=== PATIENT | male | born 1970 | race Caucasian/White ===

== ENCOUNTER 2025-02-07 08:27 | Inpatient (IN) | payer BC, SELFPAY ==
[2025-02-07] VITALS (52 sets, daily range): BP systolic 124–207; BP diastolic 76–142; BMI 26.5
--- NOTE | 2025-02-07 06:13 | ED.GENMED ---
History of Present Illness
General
Chief Complaint: Blood Pressure Problem
Time Seen by Provider: 02/07/25 06:13
History of Present Illness
History of Present Illness:
TIME OF INITIAL ENCOUNTER: 6:15 AM
HPI: Patient comes in due to concerns of elevated high blood pressure to his highest 230/135 last night. He stopped his blood pressure medication 1 year ago and was not sure what he was on at that time. 1 week ago, he saw his primary care doctor
at that time states that his blood pressure was around 220 systolic. He was placed on Toprol 50 mg daily. He did not take his Toprol yet today. 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
EXAM:
GENERAL: Well appearing in no distress, athletic build, hypertensive
HEENT: Moist oral mucosa
CARDIOVASCULAR: No murmurs, borderline tachycardic heart rate, regular rhythm, No chest wall tenderness
PULMONARY: No respiratory distress, breath sounds are clear and equal
ABDOMEN: Soft with no peritoneal signs, no tenderness
NEUROLOGIC: Excellent strength all extremities, no coordination deficits, surgical scar noted to the upper abdomen
PSYCHIATRIC: Appropriate mental status, normal insight and judgement
EXTREMITIES: Nontender, no edema, moves all extremities equally
SKIN: No rash, no lesions
NUMBER AND COMPLEXITY OF PROBLEMS ADDRESSED AT THE ENCOUNTER
� Chronic conditions affecting care: High blood pressure, hyperlipidemia
� Acute Exacerbation and/or Progression of Chronic Illness: This is an acute problem
� Differential Diagnosis includes: Stress/anxiety, hypertensive urgency, essential hypertension, ACS
AMOUNT AND/OR COMPLEXITY OF DATA TO BE REVIEWED AND ANALYZED
� I performed an independent evaluation of and my interpretation is:
EKG: Sinus 92 with associated, LVH with associated ST abnormality including TWI lateral leads
CT:
X-rays:
Laboratory Studies: CBC normal, creatinine 1.8, troponin 0.058
Other:
� Review of other/old records: The patient had colonoscopy in 2021 and had nuclear stress test in 2021 which was normal
� Clinical information was obtained by an independent historian: None needed
� Prescriptions/Medications Considered but not given:
� Further testing considered but not performed:
RISK OF COMPLICATIONS AND/OR MORBIDITY OR MORTALITY OF PATIENT MANAGEMENT
� Social determinants of health affecting care: Former smoker
� Discussion with other providers: Discussed findings with Dr. Palma.
� Escalation of care including admission/observation vs risk of discharge considered: The patient presents with rather significant high blood pressure and nonexertional chest pain for the past week. He has several cardiac risk
factors including a father that had a heart attack at 49. He uses nicotine. He currently does not have any chest pain. Renal insufficiency noted. Will give IV fluids.
ANY OTHER UPDATES:
7:40 AM: On reassessment, the patient is chest pain-free. I shared the EKG and workup with Dr. Palma. She will see in consultation but agrees patient should stay in the hospital. She recommends to hold off on heparinization for now.
Past History
Past History
ED Past Medical History: HTN and Hypercholesterolemia
ED Past Surgical History: Other (Splenectomy)
Social History
Tobacco: Former smoker
Alcohol: Occasional
Drug: None
Personal: Single
Living: with roommate
Employment: Employed
Phy Exam
Physical Exam
Physical Exam:
See HPI
Course
Orders/Labs/Results
Orders:
Orders
02/07/25 06:25
Labetalol HCl [Trandate] 10 mg IV NOW STA
02/07/25 06:27
Electrocardiogram (*1) Urgent
Reason for Study: Chest Pain
EKG- Treatment ONCE
02/07/25 06:35
Complete Blood Count/With Diff Urgent
Comprehensive Metabolic Panel Urgent
Troponin I Urgent
02/07/25 07:39
0.9% Sodium Chloride 1000 ml [Nss] 1,000 ml IV BOLUS
Aspirin 325 mg PO NOW STA
Abnormal Lab Results
02/07/25
06:35
MCH 31.7 H pg
(27.0-31.0)
Plt Count 416 H 10^3/uL
(130-400)
MPV 11.4 H fL
(7.4-10.4)
Absolute Neuts (auto) 6.7 H 10^3/uL
(1.4-6.5)
Absolute Monos (auto) 1.2 H 10^3/uL
(0.1-0.6)
Monocytes % 11.2 H %
(1.7-9.3)
BUN 30 H mg/dl
(9-20)
Creatinine 1.8 H mg/dL
(0.7-1.3)
Troponin I 0.058 H* ng/ml
02/07/25 06:35
02/07/25 06:35
Vital Signs
Initial and Last Documented VS:
Initial Vital Signs
Temp Pulse Resp BP Pulse Ox
36.8 C 100 18 207/142 99
02/07/25 06:06 02/07/25 06:06 02/07/25 06:06 02/07/25 06:06 02/07/25 06:06
Last Documented Vital Signs
Temp Pulse Resp BP Pulse Ox
36.8 C 81 18 164/117 93
02/07/25 06:06 02/07/25 07:20 02/07/25 07:20 02/07/25 07:20 02/07/25 07:20
*Critical Care Note
Total Time (30-74mins, 75-104mins- exclusive of procedures): Not Applicable
ED Attending Note
-
Portions of this chart may have been created with voice recognition software.� Occasional wrong word or��sound alike� substitutions may have occurred due to the inherent limitations of voice recognition software.
Discharge Plan
Departure
Patient Disposition: Admit
Date of Disposition: 02/07/25
Time of Disposition: 07:53
Presentation/result/management discussed w/ accepting MD/DO: Hospitalist
Discharge Problem:
Hypertensive emergency
Prescriptions:
No Action
testosterone cypionate 200 MG/1 ML oil
0.25 ml IM .THREE TIMES A WEEK
metoprolol succinate 50 mg Tablet Extended Release 24 Hr
50 mg PO DAILY
Referrals:
Kandace Gardner DO [Family Provider] -
Interventions
Interventions:
*Risk Screen - Suicide Last Done: 02/07/25 06:06
*General Assessment Last Done: 02/07/25 06:25
*Neglect/Abuse Screening Last Done: 02/07/25 06:25
*ED- Fall Risk Assessment Last Done: 02/07/25 06:27
*ED COVID-19 Vaccine History Last Done: 02/07/25 06:25
ED- Cardiac Assessment Last Done: 02/07/25 06:43
ED- Neurological Assessment Last Done: 02/07/25 06:43
ED- Pulmonary Assessment Last Done: 02/07/25 06:43
Discharge Date and Time
Print Language: MOHAWK
[2025-02-07] MEDS: TRANDATE 10 MG IV (06:37)
[2025-02-07 06:55] LABS: Hematocrit 46.6 % (39.0-52.0); Hemoglobin 16.3 g/dL (13.0-18.0); Mean Corpuscular Hgb 31.7 pg (27.0-31.0); Mean Corpuscular Volume 90.7 fL (80.0-94.0); Mean Platelet Volume 11.4 fL (7.4-10.4); Platelet Count 416 10^3/uL (130-400); Red Blood Cell Count 5.14 10^6/uL (4.70-6.10); Red Cell Dist. Width 13.8 % (11.5-14.5); White Blood Cell Count 10.7 10^3/uL (4.8-10.8)
[2025-02-07 07:03] LABS: ALT (SGPT) 23 U/L (0-50); AST (SGOT) 27 U/L (17-59); Albumin 3.9 g/dl (3.5-5.0); Alkaline Phosphatase 93 U/L (38-126); Blood Urea Nitrogen 30 mg/dl (9-20); Calcium 9.5 mg/dl (8.4-10.2); Carbon Dioxide 26 mmol/L (22-30); Chloride 104 mmol/L (98-107); Estimated Creatinine Clearance 46 ml/min; Glucose 99 mg/dl (70-99); Potassium 4.3 mmol/L (3.5-5.1); Sodium 139 mmol/L (135-145); Total Protein 7.1 g/dl (6.3-8.2); eGFR 44.45
[2025-02-07 07:13] LABS: Troponin I 0.058 ng/ml
[2025-02-07 07:46] LABS: % Basophils 0.9 % (0-2); % Eosinophils 0.8 % (0-6); % Immature Granulocytes 0.4 % (0-0.5); % Lymphocytes 24.6 % (20.5-51.1); % Monocytes 11.2 % (1.7-9.3); % Neutrophils 62.1 % (42.2-75.2); Absolute Basophils 0.1 10^3/uL (0-0.2); Absolute Eosinophils 0.1 10^3/uL (0-0.7); Absolute Lymphocytes 2.6 10^3/uL (1.2-3.4); Absolute Monocytes 1.2 10^3/uL (0.1-0.6); Absolute Neutrophils 6.7 10^3/uL (1.4-6.5); Nucleated Red Blood Cells % 0 % (-)
[2025-02-07] MEDS: ASPIRIN 325 MG PO (07:49)
[2025-02-07] MEDS: NSS 1000 IV (07:50)
[2025-02-07] MEDS: TOPROL XL 50 MG PO (08:25)
--- NOTE | 2025-02-07 08:26 | HPS.HSE ---
Addendum entered and electronically signed by Dimitry Hanks MD 02/07/25 09:43:
Cardiology contacted and recommended initiation of cardene drip. will switch to ICU level,.
Admission orders adjusted
Transcription Coordinator notified.
Original Note:
Family Physician
-
Family Physician: Kandace Gardner
Chief Complaint
-
visual changes, chest discomfort
History of Present Illness
Patient is 54-year-old male with past medical history of hypertension, congenitally deformed left kidney, alcohol use disorder, former smoker came to ER for having worsening left eye blurriness and some chest discomfort. Patient had been diagnosed
for hypertension in the past and was on some medication which patient has stopped taking. On a regular checkup 1 week before patient was noted to having significant hypertension with blood pressure in 220s and patient was started on Toprol-XL 50 mg
daily. Associated with this patient has been having visual blurriness and has been evaluated by ophthalmology in the office yesterday as well. Patient unclear diagnosis although states have edema in the eye? Denies of having any new visual field
cuts/scotoma/discomfort. Patient also was having some sternal chest discomfort with radiation to left upper chest. Denies of any associated shortness of breath/palpitation/nausea/vomiting.
Medical History
Past Medical History
Past Medical History: Reports Other
Additional Past Medical History:
hypertension, congenitally deformed left kidney, alcohol use disorder, former smoker
Past Surgical History: Reports Other
Social History
Tobacco: Former Smoker
Alcohol: Daily (2-3 drinks)
Drug: None
Employment: Employed
Family History
Family History: Not pertinent
Allergies / Home Medications
Allergies reflects when Allergies were last updated in [facility].
Home Medications with original date entered in [facility]
Allergy/Medication List:
Allergies
Allergy/AdvReac Type Severity Reaction Status Date / Time
codeine Allergy rashes Verified 02/07/25 06:06
Nfcqtjg-LCQ-FvI Reductase Allergy Unknown Verified 02/07/25 06:06
Inhibitor
[Xflpxhp-Cgd-Rxl Reductase
Inhibitor]
Home Medications
testosterone cypionate 200 mg/mL intramuscular oil 0.25 ml IM MOWEFR 07/15/18
metoprolol succinate 50 mg tablet,extended release 24 hr 50 mg PO DAILY 02/07/25
Review of Systems
-
A 12 point ROS was completed and negative except as noted: Yes
Physical Exam
Vital Signs
Vital Signs
Temp Pulse Resp BP Pulse Ox
98.3 F 81 18 164/117 93
02/07/25 06:06 02/07/25 07:20 02/07/25 07:20 02/07/25 07:20 02/07/25 07:20
Physical Exam
General: Well Developed, Well Nourished and No Apparent Distress
HEENT: NormoCephalic, Moist mucous membranes and Atraumatic
Respiratory: Clear
Cardiac: S1/S2 and Regular Rhythm; No Murmur or Rub
GI: Soft, Non Tender, Non Distended and Normal Bowel Sounds; No Organomegaly
Rectal: Deferred by Provider
Musculoskeletal: No Clubbing, No Cyanosis and No Edema
Skin: No Rash
Neuro: Nonfocal/grossly intact
Laboratory Results
-
02/07/25 06:35
02/07/25 06:35
Laboratory Results
Total Bilirubin 1.0 mg/dl (0.2-1.3) 02/07/25 06:35
AST 27 U/L (17-59) 02/07/25 06:35
ALT 23 U/L (0-50) 02/07/25 06:35
Alkaline Phosphatase 93 U/L (38-126) 02/07/25 06:35
Troponin I 0.058 ng/ml H* 02/07/25 06:35
Impression/Plan
-
1. Hypertensive emergency
Essential hypertension
-Patient with history of hypertension although took himself off of medication 1 year back, does not remember name of previous medication
-Was started on Toprol-XL 50 mg daily by primary care physician 1 week back
-Came in with visual changes/chest discomfort and found to have systolic blood pressure in 220s/renal dysfunction/elevated troponin
-Got labetalol IV in ER and blood pressure improved to systolic 160-170s during my visit
-Giving patient regular morning dose of Toprol-XL 50 mg daily
-Cardiology has been consulted for further help
2. Troponin elevation
Chest pain
-Some atypical chest discomfort with minimal troponin elevation
-EKG showing signs of left ventricular hypertrophy no ST segment changes
-Initial trop of 0.058 > f/u ordered
-Got ASA 325mg by ER physician
3. VINNIE vs CKD
Left atrophic kidney
-Cr 1.8, previous reported cr of 1.2 in
-CT abdomen pelvis in showing left atrophic kidney, this is from according to patient
-Repeat renal bladder ultrasound ordered
-Not on any nephrotoxic medication
4. Alcohol use disorder
-Drinks 2-3 drinks every day
-Denies of any history of withdrawal
-Monitor for any signs
History of splenectomy
Testosterone deficiency
History of thrombocytosis
Steatohepatitis
History of gout
DVT PPX - Lovenox
Full code
Total time spent : 78 mins
I personally saw and examined the patient.
I have reviewed all diagnostic interpretations and treatment plans as written.
Time includes patient management by me, time spent at the patients bedside, time to review lab and imaging results, discussing patient care, documentation in the medical record, and time spent with the family or caregiver and discussing care plan
with RN/Consultants.
[2025-02-07] MEDS: APRESOLINE 10 MG IV (09:06)
--- NOTE | 2025-02-07 09:14 | CON.CAR ---
Consultation
Consultation Request
Date/Time Consultation Requested: 02/07 7:30 AM
Date/Time Consultation Performed: 02/07 and 8:15 AM
Requesting Provider: Gerald Mcdermott MD
Performing Provider: Ángel Palma MD
Reason for Consultation: Chest pain, elevated troponin
Medical History
-
Chief Complaint: Chest pain, elevated troponin
History of Present Illness:
Rivera Greer is a 54-year-old man with history of familial hypercholesterolemia, family history of early coronary artery disease, and hypertension. Cardiology is consulted for chest pressure and elevated troponin. Patient reports that a few
days ago he went to his PCP and BP was 230 systolics. He was started on metoprolol earlier this month. He had previously been on antihypertensives and statin, but he stopped the statin 2 years ago due to myalgias and antihypertensives 1 year ago
also due to myalgias. He had an eye doctor appointment yesterday and they noticed papilledema. They called his PCP who then recommended that he present to the hospital. On arrival here BP was 207/142. He had a headache and some slight chest
pressure. These have since resolved with reduction in his blood pressure. He notes that he does get intermittent chest pressure usually related to stress at work. He is not physically active. He quit smoking 15 years ago. He drinks 2 beers and
bourbon daily. He has a family history of father with an VT at age 49. 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
Past Medical History
Past Medical History: HTN and Hypercholesterolemia
Past Surgical History: Appendectomy
Social History
Tobacco: Former Smoker
Alcohol: Daily
Drug: None
Living: With Family
Employment: Employed
Family History
Family History: Early CAD (Dad VT at 49)
Allergies / Home Medications
Allergy/AdvReac Type Severity Reaction Status Date / Time
codeine Allergy rashes Verified 02/07/25 06:06
Hylhgtw-KQZ-OkQ Reductase Allergy Unknown Verified 02/07/25 06:06
Inhibitor
[Zeqyuog-Mkz-Lpd Reductase
Inhibitor]
�Medication �Instructions �Recorded �Confirmed �Type
testosterone cypionate 200 mg/mL 0.25 ml IM MOWEFR 07/15/18 07/15/18 History
intramuscular oil
metoprolol succinate 50 mg 50 mg PO DAILY 02/07/25 02/07/25 History
tablet,extended release 24 hr
Review of Systems
-
All other systems: Negative unless noted
Physical Exam
Vital Signs
Temp Pulse Resp BP Pulse Ox
98.3 F 75 18 170/119 93
02/07/25 06:06 02/07/25 09:06 02/07/25 07:20 02/07/25 09:06 02/07/25 07:20
Lab Results
02/07/25 06:35
02/07/25 06:35
Troponin I 0.058 ng/ml H* 02/07/25 06:35
Physical Exam
General: Well Developed and Well Nourished
HEENT: Normocephalic and Anicteric
Respiratory: Clear
Cardiac: S1/S2 and Regular Rhythm; Negative Murmur or Peripheral Edema
Neuro: AO x 3
Impression / Plan
-
Rivera Greer is a 54-year-old man with history of familial hypercholesterolemia, family history of early coronary artery disease, and hypertension who presents with hypertensive emergency. Cardiology is consulted for chest pressure and elevated
troponin.
Tool Straightener: Dr. Sanchez (last seen 2021)
Elevated troponin
- Suspect type II VT due to hypertensive emergency. Less likely acute coronary syndrome. He is currently chest pain-free. ECG shows LVH with repolarization abnormalities.
- Obtain serial troponins and ECGs until trop downtrending
- Follow-up echocardiogram to look for regional wall motion abnormalities and/or reduced EF
- If troponins are stable or downtrending and normal echo, we will treat hypertension and set him up for an outpatient stress test.
- If troponins are rising, echo with RWMAs, or chest pressure returns, we will do LHC today. Please keep n.p.o. for now.
Hypertensive emergency
- Initial BP 207/142 with headache, chest pressure, VINNIE, and elevated troponin
- He stopped all BP meds 1 year ago and then was recently started on metoprolol succinate 50 mg daily by PCP. Previously on amlodipine and losartan which she thought caused myalgias.
- Goal BP <160/110 for next 24 hours
- Start nicardipine drip
- Switch metoprolol to carvedilol 25 mg twice daily
VINNIE
- Likely due to hypertensive emergency as above
- Trend with blood pressure lowering
- Hold nephrotoxic agents
Familial hypercholesterolemia
- He stopped statin 2 years ago due to myalgias. Tried simvastatin, atorvastatin, and rosuvastatin. PCSK9 inhibitor was reportedly denied by his insurance company. He is at extremely high risk for coronary artery disease.
- We discussed that he needs to reestablish care with us and get on some kind of lipid-lowering therapy
- Trial Ezetimibe 10 mg daily
Data Reviewed
-
EKG: Tracing Personally Visualized and interpreted
Medical Tests (Nuc Med, Echo etc): Report Reviewed by me
Labs: Labs Reviewed by me, Discussed with Physician, Discussed with Nurse and Discussed with Patient
Old Records: Reviewed
Total Time Spent with Patient (in minutes): 30
--- NOTE | 2025-02-07 10:07 | EDRN ---
BP 148/98 right now ( did get a dose of Hydralazine at 0930). Provider TT to see if they Want me to wait on the CArdene drip since he is already within their parameters
[2025-02-07] MEDS: CARDENE 200 IV ×2 (10:37→21:57)
--- NOTE | 2025-02-07 10:52 | W.PN.UPDATE ---
Update Note
Progress Note Update
Called for ICU admission for this patient for elevated blood pressure requiring Cardene drip. Initial BP in the ER was 207/142 but then dropped to the 190s prior to any intervention. Then given labetalol IV and then also given metoprolol about 2
hours later (8:25AM). Blood pressure remains in the 140�160s range, which is appropriate given his BP in the 190�200 range. Cardene gtt was never started. I reached out to cardiology, Dr. Palma, and given that nicardipine drip was never
started there is no need for ICU admission at this time, which Dr. Palma agrees with. Defer disposition level of care decision to hospitalist, Dr. Hanks, whom I also reached out to to discuss conversation I had with cardiology - hospitalist
decided to admit to telemetry.
[facility] services are always available if level care requirements change or if close monitoring is indicated - contact [facility] if there are any questions or concerns. Recommend to lower SBP by 25% over the first 24 hours and then lower
further from there.
[2025-02-07 10:59] LABS: Troponin I 0.043 ng/ml
--- NOTE | 2025-02-07 12:35 | CON.INTV ---
Consultation
Consultation Request
Date/Time Consultation Requested: 02/07/2025 09:43am
Date/Time Consultation Performed: 02/07/2025 12:45 pm
Requesting Provider: Dr. Dimitry Hanks
Performing Provider: Dr. Patric Osorio, Dr. Maren Monique
Reason for Consultation: Hypertensive Emergency
Medical History
-
Chief Complaint: Hypertensive Emergency
History of Present Illness:
54-year-old male with a past medical history of hypertension, congenitally deformed left kidney, alcohol use disorder, former smoker came to the ED today due to worsening left eye blurriness and chest discomfort. Patient recently saw his new PCP
last week and was found to be very hypertensive with blood pressures in the 220s. Patient also complains of having pain in the upper right abdomen that is mainly related with drinking. At his PCP appointment, patient was started on Toprol-XL 50
mg. Patient had been on amlodipine and losartan but he had stopped taking it a year before due to muscle cramps. Patient states that he has had increased stress at work recently as well as starting from late October early November. This extra
stress has caused patient much distress and anxiety. Alongside of these symptoms, patient was having left eye blurriness and pain which was evaluated at an ophthalmology office yesterday where they said he might have some papilledema. These
findings were communicated to patient's PCP who recommended that he go to the hospital. In the ED patient was found to be hypertensive with blood pressure being 207/142. He had mild headaches and some slight chest pressure as well. Patient was
started on oral medications with Toprol XL and labetalol which helped improve the blood pressure. Patient also underwent an EKG which showed some abnormalities such as T wave abnormalities that might be positive for lateral ischemia. Patient also
had elevated troponin levels which have now since trended down. To further manage the blood pressure, patient was started on nicardipine drip and was transferred to the ICU for further management.
Past Medical History
Past Medical History: HTN and Hypercholesterolemia
Social History
Tobacco: Former Smoker (Quit 15 years ago)
Alcohol: Daily (2-3 drinks daily (1-2 beer and couple glasses of bourbon))
Drug: None
Personal: Single
Living: With Family
Employment: Employed
Family History
Family History: CAD (Father history of CVA and DE)
Allergies / Home Medications
Allergies
Allergy/AdvReac Type Severity Reaction Status Date / Time
codeine Allergy rashes Verified 02/07/25 06:06
Ndmsatd-EDK-YdV Reductase Allergy Unknown Verified 02/07/25 06:06
Inhibitor
[Hevuagt-Qyn-Etf Reductase
Inhibitor]
Home Medications
�Medication �Instructions �Recorded �Confirmed �Last Taken �Type
testosterone cypionate 200 mg/mL 0.25 ml IM MOWEFR 07/15/18 07/15/18 07/09/18 History
intramuscular oil
metoprolol succinate 50 mg 50 mg PO DAILY 02/07/25 02/07/25 Unknown History
tablet,extended release 24 hr
Review of Systems
-
History Source: Patient
Constitutional: No Symptoms
EENT: Other (Blurry vision)
Respiratory: No Symptoms
Cardiac: No Symptoms
Abdomen/GI: Abdominal Pain
: No Symptoms
Musculoskeletal: No Symptoms
Skin: No Symptoms
Neuro: Headache (Frontal)
Endocrine: No Symptoms
Hematologic/Lymphatic: No Symptoms
Vitals / Labs / Diagnostic Testing
Vital Signs
Temp Pulse Resp BP Pulse Ox
98.3 F 77 18 124/76 96
02/07/25 06:06 02/07/25 12:00 02/07/25 12:00 02/07/25 12:00 02/07/25 09:00
Lab Data
02/07/25 06:35
02/07/25 06:35
Diagnostic Testing:
Physical Exam
-
HEENT: Normocephalic, Anicteric, Moist Mucous Membranes and Other (Blurry Vision in left eye (left visual field))
Cardiovascular: S1/S2, Regular Rhythm and Murmur
Respiratory: Clear and Non-Labored Respirations
GI: Soft, Non Distended and Tender (Mild tenderness in the upper right abdomen)
Neurology: Awake, Alert, Oriented, AO x 3 and No Motor Deficits
Skin: Warm and Good Color
General: Comfortable and Good Appetite
Assessment
-
Assessment:
54-year-old male with a past medical history of hypertension, congenitally deformed left kidney, alcohol use use disorder, and hyperlipidemia came to the ED on 02/07/2025 following recommendation from PCP that he should go to the ED for his
hypertension emergency and papilledema noticed in the left eye by ophthalmology. In the ED patient was found to be hypertensive with BP being 207/142, alongside he had chest pain and mild headache. Patient was started on antihypertensive
medication and admitted to the ICU for further management due to being on nicardipine drip.
# Hypertensive emergency
# Elevated troponin levels with chest pain and abnormalities seen on EKG
# VINNIE
# Left eye continued blurry vision
# Alcohol use disorder
Conditions prior to admission:
History of splenectomy
Testosterone deficiency
History of thrombocytosis
Steatohepatitis
History of gout
Plan:
#Hypertensive emergency
-Patient found to be hypertensive in the ED and was given hydralazine which brought blood pressure down
-Was started on nicardipine drip and was given 5 mg/hr dose
-Cardiology was consulted, input appreciated
-Switched his home metoprolol to carvedilol 25 mg twice daily
-Patient had been on losartan and amlodipine a year before which he had stopped himself due to thinking these medications caused his muscle cramping
-Admitted to the ICU due to need of nicardipine drip
-Echocardiogram ordered and performed, shows normal size and function with mild mitral regurg. Mild to moderate aortic stenosis which is worse from his previous echo in 2018.
-Goal BP >140, <160/110. Dont want to drop BP too fast
-Will give Half dose of Carvedilol tonight to not drop BP as fast
-Plasma Metanephrine, Renin/Aldosterone ratio ordered for AM
-Renal artery ultrasound ordered
# Elevated troponin levels with chest pain and abnormalities seen on EKG
-Minimal troponin elevation seen which is now trending down
-EKG shows possible lateral wall ischemia due to T wave abnormalities
-1 dose of 325 aspirin given in ED
-Can discontinue trending troponin levels as peaked
-Echocardiogram ordered and performed, shows normal size and function with mild mitral regurg. Mild to moderate aortic stenosis which is worse from his previous echo in 2018.
-As per cardiology left heart cath was considered but due to no chest pain or other symptoms, holding off on procedure
-Will repeat Troponin in the morning as it seemed to increase again
# VINNIE
-Cr 1.8, previous reported cr of 1.2 in
-Repeat BMP, continue following creatinine
-Repeat renal bladder ultrasound ordered along with Renal Artery Ultrasound
-Not on any nephrotoxic medication
# Left Eye Continued Blurry Vision
-Was seen by Ophthalmology where they said he might have papilledema in both eyes but mainly in the left eye
-Continues to have left sided blurry vision in the left eye
-If vision continues to worsen or shows no improvement, may require CT scan of head, and MRI follow up if abnormalities seen with subsequent Neuro consult
# Alcohol use disorder
-2-3 drinks daily (1-2 beer and couple glasses of bourbon), discussed quitting alcohol use, patient wants to cut down
-Monitor for any signs of withdrawal
-Started on Thiamine/Folate
DVT Prophylaxis: Lovenox
Full Code
Diagnostic Imaging:
EKG (02/07/2025):
NORMAL SINUS RHYTHM
VOLTAGE CRITERIA FOR LEFT VENTRICULAR HYPERTROPHY ( R in aVL , Sokolow-Howard ,
[place] product ) WITH REPOLARIZATION ABNORMALITY
SEPTAL INFARCT (CITED ON OR BEFORE 07-FEB-2025)
T WAVE ABNORMALITY, CONSIDER LATERAL ISCHEMIA
ABNORMAL ECG
WHEN COMPARED WITH ECG OF 07-FEB-2025 06:08,
NO SIGNIFICANT CHANGE WAS FOUND
Echocardiogram (02/07/2025):
Normal biventricular size and systolic function without regional wall motion
abnormality. LVEF 55%.
Mild mitral regurgitation.
Mild to moderate aortic stenosis (20/13 mmHg, KATIE 1.4 cm2).
Compared to prior echocardiogram on 07/18/2018, aortic sclerosis has progressed
and patient now has mild to moderate aortic stenosis.
Data Reviewed
-
EKG: Report reviewed by me, Discussed with Physician, Discussed with Nurse and Discussed with Patient
Medical Tests (Nuc Med, Echo etc): Report reviewed by me, Discussed with Physician, Discussed with Nurse and Discussed with Patient
Labs: Labs reviewed by me, Discussed with Physician, Discussed with Nurse and Discussed with Patient
--- NOTE | 2025-02-07 13:28 | PTCARENOTE ---
pt. arrived to ICU.
Placed on monitor handoff completed w. ED RN.
Remains HTN Cardene started. See titration flowsheet for details.
[2025-02-07 13:55] LABS: Glucose - Point of Care 93 mg/dl (70-99)
[2025-02-07 14:13] LABS: INR 0.99; PT 13.4 Sec (11.4-14.6)
[2025-02-07 14:14] LABS: APTT 29.4 Sec (23.4-35.0)
[2025-02-07 14:51] LABS: Troponin I 0.059 ng/ml
[2025-02-07] MEDS: THIAMINE INJECTION 100 MG IV (15:58)
--- NOTE | 2025-02-07 16:02 | PTCARENOTE ---
Cadiology rounded, no plan for cath today as chest pain has since resolved. Remains on 2.5 Cardene, oral regiment adjusted per locomotive crane operator.
[2025-02-07] MEDS: LOVENOX 40 MG SC (19:36)
[2025-02-07] MEDS: COREG 12.5 MG PO (19:36)
--- NOTE | 2025-02-07 20:00 | PTCARENOTE ---
Received patient at 1900. Pt. currently in bed. Resting comfortably. Denies pain/discomfort. Afebrile. Heart rhythm sinus. Currently on Cardene gtt to maintain SBP 140-160. Currently on room air. Lungs sound clear. PO diet, good appetite. Voiding
without issue. Skin intact. Discussed plan of care with patient. Vital signs stable at this time.
[2025-02-08] VITALS (26 sets, daily range): BP systolic 113–178; BP diastolic 79–129; BMI 26.5
--- NOTE | 2025-02-08 | PTCARENOTE ---
Pt. currently off cardene gtt. SBP within goal. Vital signs stable at this time.
--- NOTE | 2025-02-08 03:45 | PTCARENOTE ---
Pt. assessment unchanged. AM labs drawn. Vital signs stable at this time.
[2025-02-08 03:58] LABS: Hematocrit 46.4 % (39.0-52.0); Hemoglobin 16.2 g/dL (13.0-18.0); Mean Corp Hgb Conc. 34.9 g/dL (33.0-37.0); Mean Corpuscular Hgb 31.5 pg (27.0-31.0); Mean Corpuscular Volume 90.1 fL (80.0-94.0); Mean Platelet Volume 10.9 fL (7.4-10.4); Platelet Count 416 10^3/uL (130-400); Red Blood Cell Count 5.15 10^6/uL (4.70-6.10); Red Cell Dist. Width 14.3 % (11.5-14.5); White Blood Cell Count 10.3 10^3/uL (4.8-10.8)
[2025-02-08 04:02] LABS: Blood Urea Nitrogen 24 mg/dl (9-20); Calcium 9.3 mg/dl (8.4-10.2); Carbon Dioxide 24 mmol/L (22-30); Chloride 107 mmol/L (98-107); Estimated Creatinine Clearance 52 ml/min; Glucose 93 mg/dl (70-99); Magnesium 2.1 mg/dl (1.6-2.3); Phosphorus 3.2 mg/dl (2.5-4.5); Sodium 138 mmol/L (135-145)
[2025-02-08 04:20] LABS: Troponin I 0.207 ng/ml
[2025-02-08] MEDS: VITAMIN B1 100 MG PO (08:07)
[2025-02-08] MEDS: FOLVITE 1 MG PO (08:07)
[2025-02-08] MEDS: COREG 25 MG PO ×2 (08:08→19:39)
--- NOTE | 2025-02-08 08:19 | W.PN.INTV ---
Today's Communication / Plan
Recommendations
Off Cardene since early this morning at 5:30 AM
Goal BP <140/90
Currently on Coreg, may need 2 agents if SBP rises again
Secondary hypertension workup pending
ASA + Zetia per cardiology with [facility] on Monday
MRI brain and if unable to tolerate then CT head; consider neurology consult
If all brain imaging is noncontributory to his left eye blurry vision then I advised him to see ophthalmology as an outpatient
Continue vitamin B1 + folic acid, and continue monitoring for signs of alcohol withdrawal (currently there is none)
Patient is stable for downgrade out of ICU to telemetry. No additional recommendations at this time. Railcar Brake Operator/Pulmonary service will now sign off. Please reconsult if there are any additional questions/concerns, or if patient's respiratory
status deteriorates.
Assessment
-
Assessment:
54-year-old male with a past medical history of hypertension, congenitally deformed left kidney, alcohol use use disorder, and hyperlipidemia came to the ED on 02/07/2025 following recommendation from PCP that he should go to the ED for his
hypertension emergency and papilledema noticed in the left eye by ophthalmology. In the ED patient was found to be hypertensive with BP being 207/142, alongside he had chest pain and mild headache. Patient was started on antihypertensive
medication and admitted to the ICU for further management due to being on nicardipine drip.
Conditions prior to admission:
History of splenectomy
Testosterone deficiency
History of thrombocytosis
Steatohepatitis
History of gout
Impression:
#HTN crisis requiring Cardene drip (off Cardene drip since 5:30 AM today)
#VINNIE � improving
#Elevated troponin
#Hyperlipidemia
#LVH
#Left eye blurry vision (saw an cracking and fanning machine operator, not an precision grinder, prior to this admission)
#Hx of severe diffuse hepatosteatosis with daily EtOH use
#Daily alcohol use (2 beers, usually IPA with 6% or less ABV, and 1-2 glasses of bourbon per night, more on weekend)
#Mild-moderate aortic stenosis (20/13mmHg with KATIE 1.4cm^2)
#Former tobacco smoker
Plan:
- He is markedly improved, and now off the Cardene drip since 5:30 AM today
- Able to control his blood pressure more strictly today with goal <140/90mmHg but MAP>65-70 (avoid hypotension given his VINNIE)
- Secondary workup of hypertension is ongoing with aldosterone renin ratio + plasma metanephrines collected and pending; awaiting renal artery duplex to rule out BALA
- Continue with antihypertensives (Coreg 25 mg BID), and need to remember to hold nephrotoxic agents for now; prn hydralazine for SBP>160mmHg
- Continue to trend sCr; I/O
- Renally dose all meds and continue to trend sCr
- Replete electrolytes with K>4, Mg>2
- Given his persistent lateral field deficit/blurry vision in the left eye only, there is some concern for a CVA. MRI brain is recommended. Consider neurology consult. I also advised that he should see an precision grinder as an outpatient,
especially if brain imaging while hospitalized here is non-contributory
- Cardiology on board and recommendations are greatly appreciated -plan for left heart catheterization on Monday
- Continue aspirin + beta-alexus and Zetia
- Continue trending troponin as per cardiology
- Monitor for signs of EtoH withdrawal; currently no signs of WD and no Hx of withdrawal seizure
- Continue thiamine and folate
- Maintain SpO2 >90-94%
- prn nebulized bronchodilators - not currently bronchospastic
- Incentive spirometer encouraged 10x per hour for at least 4 hrs a day
- Maintain euglycemia with goal BG 140-180; A1C: 5.2 from 02/08/2025
- Trend H/H and transfuse if needed to keep Hb>7g/dL; keep plt>20k, unless there is concern for bleeding then keep plt>50k
- DVT ppx: LMWH
Patient is stable for downgrade out of ICU to telemetry. No additional recommendations at this time. Railcar Brake Operator/Pulmonary service will now sign off. Thank you for allowing us to be involved in the care of this patient. Please reconsult if there
are any additional questions/concerns, or if patient's respiratory status deteriorates.
Data:
Echocardiogram (02/07/2025):
Normal biventricular size and systolic function without regional wall motion
abnormality. LVEF 55%.
Mild mitral regurgitation.
Mild to moderate aortic stenosis (20/13 mmHg, KATIE 1.4 cm2).
Compared to prior echocardiogram on 07/18/2018, aortic sclerosis has progressed
and patient now has mild to moderate aortic stenosis.
CXR 02/08/2025: No acute cardiopulmonary process.
Renal US 02/08/2025: No evidence for right hydronephrosis; nonvisualization of the left kidney, which is noted to be severely atrophic on the previous CT examination.
Total time spent today was 58 minutes for this encounter. Time includes reviewing laboratory test/imaging results, reviewing pertinent medical records, obtaining and reviewing medical history, performing an appropriate exam, ordering medications,
tests and procedures. Time also includes documentation of this encounter, coordinating patient care and communicating with other healthcare professionals. Total time does not include separately billed tests performed on this date of service.
Subjective Dataa
Subjective Data
Date of Service:
Date of Service: February 08, 2025
Chief Complaint: Railcar Brake Operator Follow Up
Subjective:
Patient was seen this morning. Still has blurry vision on the lateral field of his left eye. Been off Cardene since 5:30 AM today. Heart rate 63, BP 138/99. He denies a headache, chest pain, SOB, nausea, fevers or chills.
Review of Systems
General: Other (Negative unless mentioned above)
Objective Data
Data Reviewed
Vital Signs / I&O / Oxygen:
Vital Signs
Temp Pulse Resp BP Pulse Ox
97.9 F 69 16 141/98 99
02/08/25 08:09 02/08/25 07:30 02/08/25 07:30 02/08/25 07:30 02/07/25 20:00
Intake and Output
02/07/25 02/08/25 02/09/25
06:59 06:59 06:59
Intake Total 425.0 / 425.0
Balance 425.0 / 425.0
SaO2 99
Physical Exam
General: Respiratory Distress (negative), Comfortable, Chills (negative) and Sweats (negative)
HEENT: Normocephalic and Anicteric
Cardiovascular: S1-S2, Murmur (VETO heard across precordium, best at RUSB) and Peripheral Edema (negative)
Respiratory: Wheeze (negative), Crackles (negative), Rhonchi (negative), Non-Labored Respirations and Stridor (negative)
GI: Soft, Non Distended, Non Tender and Normal Bowel Sounds
Neurology: AO x 3, Tremors (negative) and Other (Moving all 4 extremities)
Skin: Warm, Dry, Cyanosis (negative) and Jaundice (negative)
Labs/Micro/Reports
Lab Data
02/08/25 03:39
02/08/25 03:39
Laboratory Results
02/07/25
13:50
PT 13.4
INR 0.99
APTT 29.4
[2025-02-08] MEDS: ASPIRIN 325 MG PO (08:42)
[2025-02-08] MEDS: ZETIA 10 MG PO (08:42)
[2025-02-08 09:03] LABS: Glycohemoglobin (HgbA1c) 5.2 % (4.0-5.6); HDL Cholesterol 43 mg/dl; LDL Cholesterol, Calculated 205 mg/dl; Total Cholesterol 306 mg/dl (50-199); Triglyceride 292 mg/dl (10-149); Very Low Density Lipoprotein 58 mg/dl (0-30)
--- NOTE | 2025-02-08 09:24 | W.PN.HOSP.TC ---
Today's Communication/Plan
-
see note
Assessment / Plan
Assessment / Plan
1. Hypertensive emergency
Essential hypertension
-Patient with history of hypertension although took himself off of medication 1 year back, does not remember name of previous medication
-Was started on Toprol-XL 50 mg daily by primary care physician 1 week back
-Came in with visual changes/chest discomfort and found to have systolic blood pressure in 220s/renal dysfunction/elevated troponin
-Patient got started on Coreg yesterday in the ER, dose increased, further dose escalation per cardiology.
-Required on and off Cardene drip support yesterday
2. Troponin elevation
Chest pain
-Some atypical chest discomfort with minimal troponin elevation
-EKG showing signs of left ventricular hypertrophy no ST segment changes
-Troponin max of 0.2
-Echocardiogram showing preserved ejection fraction, no major valvulopathy
-Got ASA 325mg by ER physician
3. VINNIE vs CKD
Left atrophic kidney
-Cr 1.8, previous reported cr of 1.2 [address] abdomen pelvis in showing left atrophic kidney, this is from according to patient
- Renal bladder ultrasound pending currently
-Renal function is slowly improving, continue monitoring
-Not on any nephrotoxic medication
4. Alcohol use disorder
-Drinks 2-3 drinks every day
-Denies of any history of withdrawal
-Monitor for any signs
5. Visual changes
- Left eye vision blurriness, ongoing for 2 3 weeks
- Evaluated by ophthalmology before admission
- Persist despite improvement in blood pressure, MRI brain without contrast ordered
History of splenectomy
Testosterone deficiency
History of thrombocytosis
Steatohepatitis
History of gout
DVT PPX - Lovenox
Full code
Downgrade to telemetry after evaluation by filing clerk/cardiology
Total critical care time 38 mins . Total critical care time documented does not include time spent on separately billed procedures or the services of residents, students, nurses or physician assistants. I personally saw and examined the patient. I
have reviewed all diagnostic interpretations and treatment plans as written. I was present for the gonzalez portions of any procedures performed and the inclusive time noted in any critical care statement. Critical care time includes patient management
by me, time spent at the patients bedside, time to review lab and imaging results, discussing patient care, documentation in the medical record, and time spent with the family or caregiver.
Anticipated Discharge: 24 - 48 hours
Subjective/Interval History
-
Date of Service: February 08, 2025
Denies of having any chest pain/shortness of breath/nausea/vomiting overnight
Blood pressure well-controlled and was requiring Cardene drip over the
Objective Data
-
Labs:
Laboratory Results
02/08/25
03:39
WBC 10.3
Hgb 16.2
Hct 46.4
Plt Count 416 H
Sodium 138
Potassium 4.0
Chloride 107
Carbon Dioxide 24
BUN 24 H
Creatinine 1.6 H
Glucose 93
Calcium 9.3
Vital Signs:
Vital Signs
Temp Pulse Resp BP Pulse Ox
97.9 F 69 16 141/98 99
02/08/25 08:09 02/08/25 07:30 02/08/25 07:30 02/08/25 07:30 02/07/25 20:00
I&O
02/07/25 02/08/25 02/09/25
06:59 06:59 06:59
Intake Total 425.0 / 425.0
Balance 425.0 / 425.0
Review of Systems
-
Respiratory: Reports No Symptoms
Cardiac: Reports No Symptoms
Abdomen/GI: Reports No Symptoms
Physical Exam
-
General: No Apparent Distress and Comfortable
HEENT: Negative Oxygen
Respiratory: Clear to Auscultation
Cardiac: Regular Rhythm and S1/S2; Negative Murmur or Rub
Musculoskeletal: No Edema
Neuro: Awake, Alert, Oriented, No Motor Deficits and Nonfocal/Grossly Intact
Psych: Calm
--- NOTE | 2025-02-08 09:27 | W.PN.CD ---
Addendum entered and electronically signed by Ángel Palma MD 02/08/25 09:38:
TTE 02/07/2025: LVEF 55%, no regional wall motion abnormalities, mild MR, mild to moderate
Original Note:
Today's Communication / Plan
-
Continue carvedilol 25 mg twice daily
Goal BP less than 140/90
Repeat Troponin and ECG at 3pm
[facility] Monday
Impression / Plan
-
Rivera Greer is a 54-year-old man with history of familial hypercholesterolemia, family history of early coronary artery disease, and hypertension who presents with hypertensive emergency. Cardiology is consulted for chest pressure and elevated
troponin.
Hourly Sign Language Interpreter: Dr. Sanchez (last seen 2021)
Elevated troponin
- Initially suspected type II TN due to hypertensive emergency but troponin was checked this AM and continues to rise (0.058 -> 0.207). He is currently chest pain-free. ECG shows LVH with repolarization abnormalities and lateral TWI.
- Plan for [facility] Monday
- If he has recurrent chest pain, please call on-call cardiology
- ASA 325 mg today and then 81 mg daily
- No heparin as I am not convinced this is ACS and worry that risk > benefit
- Continue beta-alexus.
- 3 PM Troponin and ECG
Hypertensive emergency
- Initial BP 207/142 with headache, chest pressure, VINNIE, and elevated troponin
- He stopped all BP meds 1 year ago and then was recently started on metoprolol succinate 50 mg daily by PCP. Previously on amlodipine and losartan which he thought caused myalgias.
- Goal BP now <140/90
- Continue carvedilol 25 mg twice daily
- If he needs a second agent, will add OLIVA inhibitor
VINNIE
- Likely due to hypertensive emergency as above
- Trend with blood pressure lowering
- Hold nephrotoxic agents
Blurry vision
- CT head today
Familial hypercholesterolemia
- He stopped statin 2 years ago due to myalgias. Tried simvastatin, atorvastatin, and rosuvastatin. PCSK9 inhibitor was reportedly denied by his insurance company. He is at extremely high risk for coronary artery disease.
- We discussed that he needs to reestablish care with us and get on some kind of lipid-lowering therapy
- Trial Ezetimibe 10 mg daily
- Check lipids and a1c
Subjective: No recurrence of chest pain/pressure. Still has blurry vision in his left eye.
Physical Exam
Vital Signs/Labs
Vital Signs
Temp Pulse Resp BP Pulse Ox
97.9 F 69 16 141/98 99
02/08/25 08:09 02/08/25 07:30 02/08/25 07:30 02/08/25 07:30 02/07/25 20:00
02/07/25 02/08/25 02/09/25
06:59 06:59 06:59
Actual Weight 174 lb 2.643 oz 174 lb 2.643 oz
02/08/25 03:39
02/08/25 03:39
PT 13.4 Sec (11.4-14.6) 02/07/25 13:50
INR 0.99 02/07/25 13:50
APTT 29.4 Sec (23.4-35.0) 02/07/25 13:50
Magnesium 2.1 mg/dl (1.6-2.3) 02/08/25 03:39
Triglycerides 292 mg/dl (10-149) H 02/08/25 03:39
LDL Cholesterol, Calc 205 mg/dl 02/08/25 03:39
VLDL Cholesterol, Calc 58 mg/dl (0-30) H 02/08/25 03:39
HDL Cholesterol 43 mg/dl 02/08/25 03:39
LAB Results
02/07/25 02/07/25 02/07/25
06:35 10:13 13:50
Troponin I 0.058 H* 0.043 H* D 0.059 H* D
02/08/25
03:39
Troponin I 0.207 H*
Physical Exam
Constitutional: No acute distress and Comfortable
Cardiovascular: Rhythm & rate is regular, Pedal edema is absent, S1S2 is normal and Murmur/rub/gallop absent
Respiratory: Respiratory effort normal and Lungs clear to auscul.
Neuro/Psych: AO x 3
Data Reviewed
-
Date of Service: February 08, 2025
Medical Decision Making: Reviewed Test Results, Independent Historian Assessment, Test Interpretation and Review of Case with other Provider
EKG: Tracing Personally Visualized and interpreted
Echo: Report Reviewed by me
Labs: Labs Reviewed by me and Labs Ordered by me
--- NOTE | 2025-02-08 11:17 | PTCARENOTE ---
Rec'd pt at 0700. Pt AAOx3, ambulatory in room. Monitor SR. SBP 130-140's, remains off of Cardene gtts. Lungs CTA, pox 99%. US done at bedside.
--- NOTE | 2025-02-08 12:43 | W.PN.UPDATE ---
Update Note
Progress Note Update
Patient went down for MRI brain ordered by Dr. Dimitry Hanks given concern for stroke as he has left eye blurry vision involving his lateral field. Patient was brought down by the nurse and he had a panic attack, refused to be medicated and then was
brought back to the ICU. I saw him in the ICU immediately and he was tremulous, anxious, and continue to refuse to go back down for MRI as he just 'can't do it.' He mainly has a problem with his head being strapped down. I discussed the case with
Dr. Hanks and we will order a CT head for now. Given his significant anxiety, I will order Ativan 0.5 mg IVP x 1 - he says he has never taken a benzodiazepine before.
[2025-02-08] MEDS: ATIVAN 0.5 MG IV (13:01)
[2025-02-08] MEDS: NSS (PRESERVATIVE FREE) 0.25 ML IV (13:01)
[2025-02-08 16:05] LABS: Troponin I 0.095 ng/ml
--- NOTE | 2025-02-08 16:15 | CM ---
CM following re: discharge planning.
Reviewed pt's chart, met with pt.
Pt is a 54 year old male, admitted with primary dx of HTN
Pt reports he lives alone in a 2SH, has no children, has a sister who lives out of state, has supportive friends. Pt described himself as independent in all areas [employer]END[employer], drives, works.
PCP: Kandace Gardner
Pharmacy: [facility]
D/C plan: home with anticipated no needs.
CM will follow with discharge plan updates as hospitalization progresses
[2025-02-08] MEDS: ZESTRIL 10 MG PO (16:35)
--- NOTE | 2025-02-08 16:53 | TRANSFER ---
SBP 150-160's/110's, Dr. Palma notified, 10mg PO Lisinopril ordered and given. Pt transferred to IVU via wheelchair.
[2025-02-08] MEDS: LOVENOX 40 MG SC (17:00)
--- NOTE | 2025-02-08 18:54 | PTCARENOTE ---
Pt received as a transfer from ICU. Pt alert and oriented. Denies any pain or sob. Room air sat 99%. OOB ad christianne. BP 170/129.
[2025-02-09] VITALS (7 sets, daily range): BP systolic 119–152; BP diastolic 85–99
--- NOTE | 2025-02-09 00:17 | PTCARENOTE ---
Received patient at change of shift. SR on the monitor, HR in the 60s. VSS on room air. No complaints from pt at this time, call akbar within reach.
[2025-02-09 05:13] LABS: Hematocrit 44.3 % (39.0-52.0); Hemoglobin 15.2 g/dL (13.0-18.0); Mean Corp Hgb Conc. 34.3 g/dL (33.0-37.0); Mean Corpuscular Hgb 31.6 pg (27.0-31.0); Mean Corpuscular Volume 92.1 fL (80.0-94.0); Mean Platelet Volume 11.4 fL (7.4-10.4); Platelet Count 420 10^3/uL (130-400); Red Blood Cell Count 4.81 10^6/uL (4.70-6.10); Red Cell Dist. Width 14.2 % (11.5-14.5); White Blood Cell Count 8.8 10^3/uL (4.8-10.8)
[2025-02-09 05:33] LABS: Blood Urea Nitrogen 29 mg/dl (9-20); Calcium 9.5 mg/dl (8.4-10.2); Carbon Dioxide 26 mmol/L (22-30); Chloride 103 mmol/L (98-107); Estimated Creatinine Clearance 39 ml/min; Glucose 87 mg/dl (70-99); Magnesium 2.2 mg/dl (1.6-2.3); Phosphorus 3.8 mg/dl (2.5-4.5); Potassium 4.6 mmol/L (3.5-5.1); Sodium 137 mmol/L (135-145); eGFR 36.95
[2025-02-09] MEDS: COREG PO (08:32)
[2025-02-09] MEDS: ZESTRIL PO (08:33)
[2025-02-09] MEDS: ZESTRIL 20 MG PO (08:37)
[2025-02-09] MEDS: FOLVITE 1 MG PO (08:37)
[2025-02-09] MEDS: LOW STRENGTH ASPIRIN 81 MG PO (08:37)
[2025-02-09] MEDS: ZETIA 10 MG PO (08:37)
[2025-02-09] MEDS: VITAMIN B1 100 MG PO (08:37)
[2025-02-09] MEDS: COREG 12.5 MG PO ×2 (08:37→20:15)
--- NOTE | 2025-02-09 09:10 | W.PN.HOSP.TC ---
Today's Communication/Plan
-
see note
Assessment / Plan
Assessment / Plan
1. Hypertensive emergency
Essential hypertension
-Patient with history of hypertension although took himself off of medication 1 year back, does not remember name of previous medication
-Was started on Toprol-XL 50 mg daily by primary care physician 1 week back
-Came in with visual changes/chest discomfort and found to have systolic blood pressure in 220s/renal dysfunction/elevated troponin
-off of Cardene drip
-patient on Coreg bid, lisinopril dose increased to 20mg/d - holding for now due to renal function issue.
2. Troponin elevation
Chest pain
-Some atypical chest discomfort with minimal troponin elevation
-EKG showing signs of left ventricular hypertrophy no ST segment changes
-Troponin max of 0.2
-Echocardiogram showing preserved ejection fraction, no major valvulopathy
-Got ASA 325mg by ER physician
-cardiology is planning to do LHC monday, with decreased renal function may require to postpone LHC, cardio to decide
3. VINNIE vs CKD
Left atrophic kidney
-Cr 1.8, previous reported cr of 1.2 [address]
-CT abdomen pelvis in showing left atrophic kidney, this is from according to patient
-Renal bladder ultrasound showing left kidney atrophic . right kidney normal.
-Hold lisinopril for now
4. Alcohol use disorder
-Drinks 2-3 drinks every day
-Denies of any history of withdrawal
-Monitor for any signs
5. Visual changes
- Left eye vision blurriness, ongoing for 2 3 weeks
- Evaluated by ophthalmology before admission
- MR brain could not be done as patient have anxiety episode. CT head w/o contrast neg for any acute issues.
History of splenectomy
Testosterone deficiency
History of thrombocytosis
Steatohepatitis
History of gout
DVT PPX - Lovenox
Full code
Total time spent : 53 mins
Discussed with cardiology
Anticipated Discharge: 24 - 48 hours
Subjective/Interval History
-
Date of Service: February 09, 2025
no complains overnight
no chest discomfort/nausea/headache
Objective Data
-
Labs:
Laboratory Results
02/09/25
04:16
WBC 8.8
Hgb 15.2
Hct 44.3
Plt Count 420 H
Sodium 137
Potassium 4.6
Chloride 103
Carbon Dioxide 26
BUN 29 H
Creatinine 2.1 H
Glucose 87
Calcium 9.5
Vital Signs:
Vital Signs
Temp Pulse Resp BP Pulse Ox
97.8 F 59 16 140/99 98
02/09/25 07:33 02/09/25 07:33 02/09/25 07:33 02/09/25 07:29 02/09/25 07:33
I&O
02/08/25 02/09/25 02/10/25
06:59 06:59 06:59
Intake Total 425.0 / 425.0 480 / 480
Balance 425.0 / 425.0 480 / 480
Review of Systems
-
Respiratory: Reports No Symptoms
Cardiac: Reports No Symptoms
Abdomen/GI: Reports No Symptoms
Physical Exam
-
General: No Apparent Distress and Comfortable
HEENT: Negative Oxygen
Respiratory: Clear to Auscultation
Cardiac: Regular Rhythm and S1/S2; Negative Murmur or Rub
Musculoskeletal: No Edema
Neuro: Awake, Alert, Oriented, No Motor Deficits and Nonfocal/Grossly Intact
Psych: Calm
--- NOTE | 2025-02-09 09:31 | PTCARENOTE ---
Rec'd pt at handoff. Tele - SR/SB. HR 40-60s. Assessment completed as documented. Pt ambulatory around room w/ no complaints this AM. Plan of care reviewed w/ pt and verbalizes understanding.
--- NOTE | 2025-02-09 10:55 | W.PN.CD ---
Today's Communication / Plan
-
Potential [facility] tomorrow if creatinine improves
Give 1 L IV fluid
Stop OLIVA inhibitor
Start amlodipine
Impression / Plan
-
Rivera Greer is a 54-year-old man with history of familial hypercholesterolemia, family history of early coronary artery disease, and hypertension who presents with hypertensive emergency. Cardiology is consulted for chest pressure and elevated
troponin.
Optician Apprentice Dispensing: Dr. Sanchez (last seen 2021)
Elevated troponin
- Initially suspected type II [place] due to hypertensive emergency but troponin continued to rise (peaked at 0.2). He is currently chest pain-free. ECG shows LVH with repolarization abnormalities and lateral TWI.
- Plan for [facility] Monday if VINNIE improves
- If he has recurrent chest pain, please call on-call cardiology
- ASA 81 mg daily
- No heparin as I am not convinced this is ACS and worry that risk > benefit
- Continue beta-alexus.
- Statin intolerant. Continue ezetimibe.
Hypertensive emergency
- Initial BP 207/142 with headache, chest pressure, VINNIE, and elevated troponin
- He stopped all BP meds 1 year ago and then was recently started on metoprolol succinate 50 mg daily by PCP. Previously on amlodipine and losartan which he thought caused myalgias.
- Goal BP now <140/90
- Decrease carvedilol to 12.5 mg twice daily for bradycardia
- OLIVA inhibitor started but creatinine bumped so we will stop
- Start amlodipine 10 mg daily
VINNIE
- Likely due to hypertensive emergency and OLIVA inhibitor. Also functionally has 1 kidney.
- Give 1 L IV fluids to see if there is any improvement
- Continue to trend
- Hold nephrotoxic agents
Blurry vision
- CT head unremarkable. Could not tolerate MRI.
Familial hypercholesterolemia
- He stopped statin 2 years ago due to myalgias. Tried simvastatin, atorvastatin, and rosuvastatin. PCSK9 inhibitor was reportedly denied by his insurance company. He is at extremely high risk for coronary artery disease.
- Lipids 02/08/2025: TC 306 LDL 205 TG 292 HDL 43
- We discussed that he needs to reestablish care with us and get on some kind of lipid-lowering therapy
- Trial Ezetimibe 10 mg daily
Subjective: No CV complaints. Blurry vision is improving.
Physical Exam
Vital Signs/Labs
Vital Signs
Temp Pulse Resp BP Pulse Ox
97.8 F 51 16 152/96 98
02/09/25 07:33 02/09/25 09:00 02/09/25 07:33 02/09/25 08:38 02/09/25 07:33
02/08/25 02/09/25 02/10/25
06:59 06:59 06:59
Actual Weight 174 lb 2.643 oz
02/09/25 04:16
02/09/25 04:16
PT 13.4 Sec (11.4-14.6) 02/07/25 13:50
INR 0.99 02/07/25 13:50
APTT 29.4 Sec (23.4-35.0) 02/07/25 13:50
Magnesium 2.2 mg/dl (1.6-2.3) 02/09/25 04:16
Triglycerides 292 mg/dl (10-149) H 02/08/25 03:39
LDL Cholesterol, Calc 205 mg/dl 02/08/25 03:39
VLDL Cholesterol, Calc 58 mg/dl (0-30) H 02/08/25 03:39
HDL Cholesterol 43 mg/dl 02/08/25 03:39
LAB Results
02/07/25 02/07/25 02/07/25
06:35 10:13 13:50
Troponin I 0.058 H* 0.043 H* D 0.059 H* D
02/08/25 02/08/25
03:39 15:20
Troponin I 0.207 H* 0.095 H*
Physical Exam
Constitutional: No acute distress and Comfortable
Cardiovascular: Rhythm & rate is regular, Pedal edema is absent, S1S2 is normal and Murmur/rub/gallop absent
Respiratory: Respiratory effort normal and Lungs clear to auscul.
Neuro/Psych: AO x 3
Data Reviewed
-
Date of Service: February 09, 2025
Medical Decision Making: Reviewed Test Results, Independent Historian Assessment, Test Interpretation and Review of Case with other Provider
EKG: Tracing Personally Visualized and interpreted
Echo: Report Reviewed by me
X-Ray/CT/US/MRI/NUC/PET: Report Reviewed by me
Labs: Labs Reviewed by me
[2025-02-09] MEDS: NSS 500 IV (11:08)
[2025-02-09] MEDS: NORVASC 10 MG PO (11:08)
[2025-02-09] MEDS: LOVENOX 40 MG SC (18:10)
--- NOTE | 2025-02-09 21:45 | PTCARENOTE ---
Assumed care of the pt @ 1900. Pt AAOX3 ambulating the halls. SR/SB on the monitor Bp stable. denies pain. POC discussed with pt including NPO after mn verbalized understanding. Call akbar within reach.
[2025-02-10] VITALS (17 sets, daily range): BP systolic 122–180; BP diastolic 70–114; BMI 25.7
[2025-02-10 04:21] LABS: Hematocrit 43.7 % (39.0-52.0); Mean Corp Hgb Conc. 34.3 g/dL (33.0-37.0); Mean Corpuscular Hgb 31.8 pg (27.0-31.0); Mean Corpuscular Volume 92.6 fL (80.0-94.0); Mean Platelet Volume 11.9 fL (7.4-10.4); Platelet Count 404 10^3/uL (130-400); Red Blood Cell Count 4.72 10^6/uL (4.70-6.10); White Blood Cell Count 8.6 10^3/uL (4.8-10.8)
[2025-02-10 04:37] LABS: Blood Urea Nitrogen 29 mg/dl (9-20); Calcium 9.3 mg/dl (8.4-10.2); Carbon Dioxide 25 mmol/L (22-30); Chloride 106 mmol/L (98-107); Estimated Creatinine Clearance 44 ml/min; Glucose 85 mg/dl (70-99); Potassium 4.6 mmol/L (3.5-5.1); Sodium 138 mmol/L (135-145); eGFR 41.66
[2025-02-10] MEDS: VITAMIN B1 100 MG PO (09:49)
[2025-02-10] MEDS: ZETIA 10 MG PO (09:49)
[2025-02-10] MEDS: LOW STRENGTH ASPIRIN 81 MG PO (09:49)
[2025-02-10] MEDS: NORVASC 10 MG PO (09:49)
[2025-02-10] MEDS: COREG 12.5 MG PO ×2 (09:50→19:56)
[2025-02-10] MEDS: FOLVITE 1 MG PO (09:51)
--- NOTE | 2025-02-10 11:33 | CM ---
Reviewed chart. Mr. Greer was transferred to IVU. Met with Mr. Greer to review discharge plans. He states he is feeling well and waiting for more tests today. He states prior to admission he resides alone in a three story condo with one step
to enter. He states he has a full flight of steps to get to bedroom/full bathroom. He states he has a powder room on the first floor. He states prior to admission he was independent with ambulation and adls He states he does not have any DME in
the home. He states he has a prescription plan and and uses [facility] pharmacy. Medical work-up in progress. The discharge plan is to return home when medically stable.
--- NOTE | 2025-02-10 14:09 | PTCARENOTE ---
received patient this am, monitor shows SB, VSS. patient had U/S this am. Patient remains NPO for heart cath today. Dr. Guo is aware of cr 1.9.
--- NOTE | 2025-02-10 14:48 | W.PN.HOSP.TC ---
Today's Communication/Plan
-
see note
Assessment / Plan
Assessment / Plan
1. Hypertensive emergency
Essential hypertension
-Patient with history of hypertension although took himself off of medication 1 year back, does not remember name of previous medication
-Was started on Toprol-XL 50 mg daily by primary care physician 1 week back
-Came in with visual changes/chest discomfort and found to have systolic blood pressure in 220s/renal dysfunction/elevated troponin
-off of Cardene drip
-patient on coreg 25mg/bid, continue holding lisinopril.
2. Troponin elevation
Chest pain
-Some atypical chest discomfort with minimal troponin elevation
-EKG showing signs of left ventricular hypertrophy no ST segment changes
-Troponin max of 0.2
-Echocardiogram showing preserved ejection fraction, no major valvulopathy
-Got ASA 325mg by ER physician
-cardiology is planning to do LHC today, renal function possible prohibitive,decision defer to cards.
3. VINNIE vs CKD
Left atrophic kidney
-Cr 1.8, previous reported cr of 1.2 [address] abdomen pelvis in showing left atrophic kidney, this is from according to patient
-Renal bladder ultrasound showing left kidney atrophic . right kidney normal.
-Hold lisinopril for now
-Cr trended down 1.9
4. Alcohol use disorder
-Drinks 2-3 drinks every day
-Denies of any history of withdrawal
-Monitor for any signs
5. Visual changes
- Left eye vision blurriness, ongoing for 2 3 weeks
- Evaluated by ophthalmology before admission
- MR brain could not be done as patient have anxiety episode. CT head w/o contrast neg for any acute issues.
History of splenectomy
Testosterone deficiency
History of thrombocytosis
Steatohepatitis
History of gout
DVT PPX - Lovenox
Full code
Anticipated Discharge: Within 24 hours
Subjective/Interval History
-
Date of Service: February 10, 2025
Denies having any issues
Objective Data
-
Labs:
Laboratory Results
02/10/25
03:30
WBC 8.6
Hgb 15.0
Hct 43.7
Plt Count 404 H
Sodium 138
Potassium 4.6
Chloride 106
Carbon Dioxide 25
BUN 29 H
Creatinine 1.9 H
Glucose 85
Calcium 9.3
Vital Signs:
Vital Signs
Temp Pulse Resp BP Pulse Ox
97.9 F 53 18 136/94 98
02/10/25 11:55 02/10/25 11:55 02/10/25 11:55 02/10/25 11:55 02/10/25 11:55
I&O
02/09/25 02/10/25 02/11/25
06:59 06:59 06:59
Intake Total 480 / 480 960 / 960
Balance 480 / 480 960 / 960
Review of Systems
-
Respiratory: Reports No Symptoms
Cardiac: Reports No Symptoms
Abdomen/GI: Reports No Symptoms
Physical Exam
-
General: No Apparent Distress and Comfortable
HEENT: Negative Oxygen
Respiratory: Clear to Auscultation
Cardiac: Regular Rhythm and S1/S2; Negative Murmur or Rub
Musculoskeletal: No Edema
Neuro: Awake, Alert, Oriented, No Motor Deficits and Nonfocal/Grossly Intact
Psych: Calm
--- NOTE | 2025-02-10 15:03 | W.PN.CD ---
Today's Communication / Plan
-
Cardiac catheterization to clarify coronary anatomy.
Impression / Plan
-
Impression/Plan: 54-year-old man with history of familial hypercholesterolemia, family history of early coronary artery disease, and hypertension who presents with hypertensive emergency associated with chest pressure and elevated troponin.
#Elevated troponin
-Acute.
-Initially suspected type II [place] due to hypertensive emergency but troponin continued to rise (0.095 <-- 0.207 <-- 0.059 <-- 0.043 <-- 0.058). He is currently chest pain-free. ECG shows LVH with repolarization abnormalities and lateral TWI.
-Continue ASA 81 mg daily.
-No heparin as we are not convinced this is ACS and worry that risk > benefit.
-Continue beta-alexus.
-Statin intolerant. Continue ezetimibe.
-Cardiac catheterization today to clarify coronary anatomy.
#Hypertensive emergency
-Acute, threat to life.
-Initial BP 207/142 with headache, chest pressure, VINNIE, and elevated troponin/
-He stopped all BP meds 1 year ago and then was recently started on metoprolol succinate 50 mg daily by PCP. Previously on amlodipine and losartan which he thought caused myalgias.
-Goal BP now <140/90
-Carvedilol decreased to 12.5 mg twice daily for bradycardia, continue amlodipine.
-OLIVA inhibitor on hold due to VINNIE.
#VINNIE
-Functionally has 1 kidney.
-Likely due to hypertensive emergency and OLIVA inhibitor.
-Assess filling pressures.
-Continue to trend.
-Hold nephrotoxic agents.
#Blurry vision
-CT head unremarkable. Could not tolerate MRI.
#Familial hypercholesterolemia
-He stopped statin 2 years ago due to myalgias.
-Tried simvastatin, atorvastatin, and rosuvastatin. PCSK9 inhibitor was reportedly denied by his insurance company. He is at extremely high risk for coronary artery disease.
-Lipids 02/08/2025: TC 306 LDL 205 TG 292 HDL 43
-We discussed that he needs to reestablish care with us and get on some kind of lipid-lowering therapy
-Trial Ezetimibe 10 mg daily.
It Instructor: Dr. Sanchez (last seen 2021)
Subjective/Interval History:
No acute events.
His blurry vision continues.
DATA:
Renal artery US, 02/10/2025:
IMPRESSION:
1. No evidence of significant right renal arterial stenosis.
2. The left renal artery is not visualized, and was also not well seen on prior CT. There is intrarenal blood flow demonstrated within the left renal mid pole.
CT Head, 02/08/2025:
IMPRESSION:
No acute intracranial abnormality noted. No acute intracranial hemorrhage.
Nonspecific mild leukoaraiosis. Possible considerations include demyelination, gliosis, chronic microvascular white matter ischemic disease, vasculitis, migraine headaches, or other inflammatory or infectious etiology, such as Lyme disease in the
proper clinical setting.
Transthoracic Echocardiogram, 02/07/2025:
CONCLUSIONS
Normal biventricular size and systolic function without regional wall motion
abnormality. LVEF 55%.
Mild mitral regurgitation.
Mild to moderate aortic stenosis (20/13 mmHg, KATIE 1.4 cm2).
Compared to prior echocardiogram on 07/18/2018, aortic sclerosis has progressed
and patient now has mild to moderate aortic stenosis.
Physical Exam
Vital Signs/Labs
Vital Signs
Temp Pulse Resp BP Pulse Ox
36.6 C 53 18 136/94 98
02/10/25 11:55 02/10/25 11:55 02/10/25 11:55 02/10/25 11:55 02/10/25 11:55
02/09/25 02/10/25 02/11/25
11:59 11:59 11:59
Actual Weight 76.8 kg
02/10/25 03:30
02/10/25 03:30
PT 13.4 Sec (11.4-14.6) 02/07/25 13:50
INR 0.99 02/07/25 13:50
APTT 29.4 Sec (23.4-35.0) 02/07/25 13:50
Magnesium 2.2 mg/dl (1.6-2.3) 02/09/25 04:16
Triglycerides 292 mg/dl (10-149) H 02/08/25 03:39
LDL Cholesterol, Calc 205 mg/dl 02/08/25 03:39
VLDL Cholesterol, Calc 58 mg/dl (0-30) H 02/08/25 03:39
HDL Cholesterol 43 mg/dl 02/08/25 03:39
LAB Results
02/08/25 02/08/25
03:39 15:20
Troponin I 0.207 H* 0.095 H*
Physical Exam
Constitutional: No acute distress and Comfortable
EENT: Moist mucous membranes
Cardiovascular: Rhythm & rate is regular, Pedal edema is absent, JVD pressure is normal, S1S2 is normal and Murmur/rub/gallop absent
Respiratory: Respiratory effort normal, Lungs clear to auscul., Wheeze Absent, Crackles Absent and Rhonchi Absent
GI: Soft, Distention absent, Flat, Non tender and Normal bowel sounds
Neuro/Psych: AO x 3
Data Reviewed
-
Date of Service: February 10, 2025
Medical Decision Making: Reviewed Test Results, Independent Historian Assessment and Test Interpretation
EKG: Tracing Personally Visualized and interpreted and Report Reviewed by me
Echo: Report Reviewed by me
X-Ray/CT/US/MRI/NUC/PET: Image Personally Visualized and interpreted and Report Reviewed by me
Labs: Labs Reviewed by me
Old Records: Reviewed
--- NOTE | 2025-02-10 15:37 | W.PN.HOSP.TC ---
Today's Communication/Plan
-
For possible LHC today
Assessment / Plan
Assessment / Plan
1. Hypertensive emergency
Essential hypertension
-Patient with history of hypertension although took himself off of medication 1 year back, does not remember name of previous medication
-Was started on Toprol-XL 50 mg daily by primary care physician 1 week back
-Came in with visual changes/chest discomfort and found to have systolic blood pressure in 220s/renal dysfunction/elevated troponin
-off of Cardene drip
-patient on coreg 25mg/bid, continue holding lisinopril.
2. Troponin elevation
Chest pain
-Some atypical chest discomfort with minimal troponin elevation
-EKG showing signs of left ventricular hypertrophy no ST segment changes
-Troponin max of 0.2
-Echocardiogram showing preserved ejection fraction, no major valvulopathy
-Got ASA 325mg by ER physician
-cardiology is planning to do LHC today, renal function possible prohibitive,decision defer to cards.
3. VINNIE vs CKD
Left atrophic kidney
-Cr 1.8, previous reported cr of 1.[address] abdomen pelvis in showing left atrophic kidney, this is from according to patient
-Renal bladder ultrasound showing left kidney atrophic . right kidney normal.
-Hold lisinopril for now
-Cr trended down 1.9
4. Alcohol use disorder
-Drinks 2-3 drinks every day
-Denies of any history of withdrawal
-Monitor for any signs
5. Visual changes
- Left eye vision blurriness, ongoing for 2 3 weeks
- Evaluated by ophthalmology before admission
- MR brain could not be done as patient have anxiety episode. CT head w/o contrast neg for any acute issues.
History of splenectomy
Testosterone deficiency
History of thrombocytosis
Steatohepatitis
History of gout
DVT PPX - Lovenox
Full code
Anticipated Discharge: 24 - 48 hours
Subjective/Interval History
-
Date of Service: February 10, 2025
No complaints overnight
Objective Data
-
Labs:
Laboratory Results
02/10/25
03:30
WBC 8.6
Hgb 15.0
Hct 43.7
Plt Count 404 H
Sodium 138
Potassium 4.6
Chloride 106
Carbon Dioxide 25
BUN 29 H
Creatinine 1.9 H
Glucose 85
Calcium 9.3
Vital Signs:
Vital Signs
Temp Pulse Resp BP Pulse Ox
97.9 F 53 18 136/94 98
02/10/25 11:55 02/10/25 11:55 02/10/25 11:55 02/10/25 11:55 02/10/25 11:55
I&O
02/09/25 02/10/25 02/11/25
06:59 06:59 06:59
Intake Total 480 / 480 960 / 960
Balance 480 / 480 960 / 960
Review of Systems
-
Respiratory: Reports No Symptoms
Cardiac: Reports No Symptoms
Abdomen/GI: Reports No Symptoms
Physical Exam
-
General: No Apparent Distress and Comfortable
HEENT: Negative Oxygen
Respiratory: Clear to Auscultation
Cardiac: Regular Rhythm and S1/S2; Negative Murmur or Rub
Musculoskeletal: No Edema
Neuro: Awake, Alert, Oriented, No Motor Deficits and Nonfocal/Grossly Intact
Psych: Calm
--- NOTE | 2025-02-10 15:52 | ITS.CL.CATH ---
Matching Machine Operator - Catheterization
Cardiac Catheterization
Procedure Report:
CARDIAC CATHETERIZATION REPORT
Date of Procedure: 02/10/2022 5
Referring: Ángel Palma M.D.
INDICATION: Hypertensive emergency, elevated troponin, possible ACS.
PROCEDURE:
1. Left heart catheterization.
2. Coronary angiography.
A total of 27 minutes of procedural/moderate sedation was utilized. An independent healthcare or medical was present to assist with and help manage the patient's level of consciousness and physiologic status.
ACCESS:
1. 6 [place] right radial artery using a modified Seldinger technique.
CATHETERS:
1. 5 [place] JR4.
2. 5 [place] JL 3.5.
HEMODYNAMIC DATA
Weight (kg): 76.7
AO (s/d/x, mmHg): 140/95/114
LV (s/x mmHg): 147/20 (A wave to 35)
LEFT VENTRICULOGRAPHY: Not performed.
CORONARY ANGIOGRAPHY
Dominance: Right.
Left Main: Normal size, trifurcating vessel. There is no coronary artery disease.
LAD: Normal size vessel giving rise to 1 significant diagonal. There is a 70% lesion in the proximal vessel, spanning the origin of the small first diagonal.
Ramus: Large size vessel supplying the overwhelming majority of the anterolateral wall. There is a 70% lesion in the proximal third of the vessel.
Circumflex: Large size, nondominant vessel giving rise to a single obtuse marginal which subsequently bifurcates into 2 daughter vessels. There is a 70% lesion in the distal circumflex in the AV groove portion of the vessel.
RCA: Normal size, dominant vessel that is chronically totally occluded in its midportion. Collaterals are provided to the distal RCA/RPDA from the AV groove circumflex.
INTERVENTION(S)
None.
Closure Device: Vascular band.
Radiation (mGy): 249.68
DAP (cm2.Gy): 21.7842
Fluoroscopy time (minutes): 2.7
CONCLUSIONS
1. 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
groove distal circumflex.
2. Moderately elevated filling pressures (LVEDP = 20 mmHg at 76.7 kg) with evidence of diastolic dysfunction (A wave to 35 mmHg).
RECOMMENDATIONS:
1. Expectant management after cardiac catheterization via right radial approach.
2. Limited weight bearing on the right wrist for one week.
3. Consultation with CT surgery regarding optimal revascularization strategy.
4. Aggressive secondary prevention with high-dose, high potency statin.
5. OMT/GDMT as hemodynamics will tolerate.
Copy to: Ángel Palma M.D., Ángel Antonio M.D., Dimitry Hanks M.D.
Puneet Holm DO, FACC, FACP
--- NOTE | 2025-02-10 16:38 | CONSULT.CT ---
Consultation
-
Date/Time Consultation Requested: 02/10 @1551
Date/Time Consultation Performed: 02/10 @ 1642
Requesting Provider: Mihai OREILLY
Performing Provider: Umberto Mcfarlane MD
Reason for Consultation: CABG eval
Patient History
Physicians
Family Physician: Kandace Gardner
Outpatient Director Of Consumer Marketing: Dr. Sanchez (last seen 2021)
Inpatient Director Of Consumer Marketing: Ángel Palma MD
History of Present Illness
54-year-old male with a past medical history of hypertension, congenitally deformed left kidney, alcohol use use disorder, and hyperlipidemia came to the ED on 02/07/2025 following recommendation from PCP that he should go to the ED for his
hypertension emergency and papilledema noticed in the left eye by ophthalmology. In the ED patient was found to be hypertensive with BP being 207/142, alongside he had chest pain and mild headache. He was subsequently transferred to the ICU for a
nicardipine infusion for blood pressure control. Patient was also noted to have elevated troponins, therefore, patient was taken to the cardiac [facility] today where multivessel disease was found. CT surgery was consulted for surgical evaluation.
02/10 TTE:
Normal biventricular size and systolic function without regional wall motion
abnormality. LVEF 55%.
Mild mitral regurgitation.
Mild to moderate aortic stenosis (20/13 mmHg, KATIE 1.4 cm2).
02/10 LHC:
Dominance: Right.
Left Main: Normal size, trifurcating vessel. There is no coronary artery disease.
LAD: Normal size vessel giving rise to 1 significant diagonal. There is a 70% lesion in the proximal vessel, spanning the origin of the small first diagonal.
Ramus:Large size vessel supplying the overwhelming majority of the anterolateral wall. There is a 70% lesion in the proximal third of the vessel.
Circumflex: Large size, nondominant vessel giving rise to a single obtuse marginal which subsequently bifurcates into 2 daughter vessels. There is a 70% lesion in the distal circumflex in the AV groove portion of the vessel.
RCA: Normal size, dominant vessel that is chronically totally occluded in its midportion. Collaterals are provided to the distal RCA/RPDA from the AV groove circumflex.
Past Medical History
Past Medical History: HTN and Hypercholesterolemia
Past Surgical History
spleenectomy
Family History
Mother: Still Living
Father: Still Living and N/A (Early 40s [place])
Family Medical History: CAD
Social History
Alcohol: Daily
Drug: None
Tobacco: Former Smoker (Quit 15 years ago)
Personal: Single
Living: With Family
Employment: Employed (Surg Nurse)
Allergies
Allergy/AdvReac Type Severity Reaction Status Date / Time
codeine Allergy rashes Verified 02/07/25 06:06
Tqhzwgt-WKR-LzK Reductase AdvReac cramps Verified 02/07/25 13:41
Inhibitor
[Mcfivrx-Yxc-Pdg Reductase
Inhibitor]
Home Medications
�Medication �Instructions �Recorded �Confirmed �Type
testosterone cypionate 200 mg/mL 0.25 ml IM MOWEFR 07/15/18 07/15/18 History
intramuscular oil
metoprolol succinate 50 mg 50 mg PO DAILY Blood Pressure 02/07/25 02/07/25 History
tablet,extended release 24 hr
Review of Systems
-
History Source: Patient
General: Reports Sleep Disturbance
HEENT: Reports Visual Changes and Other (headaches)
Respiratory: Reports No Symptoms
Cardiac: Reports No Symptoms
Abdomen/GI: Reports No Symptoms
: Reports No Symptoms
Musculoskeletal: Reports No Symptoms
Skin: Reports Other (flushed)
Neurological: Reports Headaches
Vascular: Reports No Symptoms
Physical Exam
Vital Signs
Temp 97.9 F 02/10/25 11:55
Temp route: Oral 02/10/25 11:55
Pulse 53 02/10/25 11:55
Rhythm: Sinus bradycardia 02/10/25 08:30
With- Normal sinus rhythm 02/09/25 21:36
Resp Rate 18 02/10/25 11:55
Blood pressure 136/94 02/10/25 11:55
Blood pressure extremity used: Right upper arm 02/10/25 11:55
Position: Sitting 02/10/25 11:55
MAP (cuff-Ariadna Monitor) 101 02/10/25 08:45
MAP 108 02/10/25 03:27
SaO2 98 02/10/25 11:55
Oxygen Mode of Delivery Room air 02/10/25 11:55
Acceptable pain level during hospitalization? 0 02/07/25 06:06
Can the patient verbally communicate their pain? Yes 02/10/25 08:30
Actual Weight 76.8 kg 02/10/25 03:32
Body Mass Index (BMI) 25.7 02/10/25 03:32
Labs
02/10/25 03:30
02/10/25 03:30
PT 13.4 Sec (11.4-14.6) 02/07/25 13:50
APTT 29.4 Sec (23.4-35.0) 02/07/25 13:50
Hemoglobin A1c 5.2 % (4.0-5.6) 02/08/25 03:39
Troponin I 0.095 ng/ml H* 02/08/25 15:20
Exam
General: Well Developed, Well Nourished and Comfortable
HEENT: Normocephalic
Respiratory: Clear
Cardiac: S1/S2, Regular Rhythm and Irregular Rhythm
GI: Soft and Non Tender
Rectal: Deferred by Provider
Skin: Warm and Dry
Neuro: AO x 3
Lymph: No Lymphadenopathy
Psych: Other (tearful)
Assessment / Plan
-
54-year-old male with past medical history listed above presented to [facility] with hypertensive urgency. He was started on a nicardipine drip and was found to have elevated troponins. He was taken to the cardiac [facility] today where multivessel
disease was found. CT surgery was consulted for surgical evaluation.
#CAD
-Patient's case was discussed with attending physician and cardiology. Likely patient is not experiencing a true ACS event and could return outpatient for CABG. Patient is tentatively scheduled for 02/[address] Mcfarlane.
-Routine preoperative cardiothoracic surgery orders will be initiated.
-STS risk stratification score will be calculated after preoperative testing is complete
#HTN
- During consult patient's blood pressure was 180/118
- Continue up titration of blood pressure medications.
[2025-02-10] MEDS: LOVENOX 40 MG SC (18:27)
--- NOTE | 2025-02-10 19:54 | PTCARENOTE ---
Assumed care of the pt @ 1900. Pt AAOx3 SB on the monitor. vss denies cp rt wrist r band in place air removed per protocol. no bleeding. Call akbar within reach.
[2025-02-10] MEDS: MELATONIN 5 MG PO (22:03)
[2025-02-11 04:16] VITALS: BP 146/98
--- NOTE | 2025-02-11 05:15 | W.PN.CT ---
Today's Communication / Plan
-
Plan:
-Cont. current medical management per primary team
-Ongoing preop evaluation
-Pt asking to go home and come back for surgery
-Okay for home per Dr. Mcfarlane and Cardiology. Will have preop workup completed prior to going home
-Pt seen by Dr. Mcfarlane and consented
-For CABG/BE clip by Dr. Mcfarlane on 02/18/25
Assessment / Plan
-
Assessment:
-Multivessel CAD
-Strong family hx of CAD, Father underwent CABG in his 40's
-HTN with presentation of hypertensive emergency
-HLD (statin intolerance)
-VINNIE
-Bradycardia
-Former tobacco use (quit 15 years ago)
-LVEF 55%
-Mild MR
-Mild-mod
Discussed patient care with: Cardiology, Nursing, Respiratory Therapy, Pharmacy and Care Team
Subjective
-
Date of Service: February 11, 2025
No issues overnight. Denies CP/SOB
Objective Data
-
PT 13.4 Sec (11.4-14.6) 02/07/25 13:50
INR 0.99 02/07/25 13:50
APTT 29.4 Sec (23.4-35.0) 02/07/25 13:50
Vital Signs
Vital Signs
Temp Pulse Resp BP Pulse Ox
98 F 51 16 122/85 96
02/10/25 22:05 02/11/25 02:00 02/10/25 22:05 02/10/25 22:04 02/10/25 22:05
CT Intake/Output/Weight
02/10/25 02/10/25 02/11/25
06:59 18:59 06:59
Intake Total 345 / 345
Balance 345 / 345
SaO2: 96 (RA)
Physical Exam
-
General: Awake, Oriented and AOx3
Cardiovascular: Regular rate & rhythm (sinus bradycardia) and No Murmurs
Respiratory: Decreased Breath Sounds
Extremities: No Edema
Data Reviewed
-
Lab Results: Results Reviewed
Medications: Active Meds Reviewed
Chest X-Ray: Report Reviewed and Image Reviewed
ECG: Report Reviewed and Image Reviewed
[2025-02-11 05:18] LABS: Hematocrit 47.8 % (39.0-52.0); Hemoglobin 16.5 g/dL (13.0-18.0); Mean Corp Hgb Conc. 34.5 g/dL (33.0-37.0); Mean Corpuscular Hgb 31.5 pg (27.0-31.0); Mean Corpuscular Volume 91.4 fL (80.0-94.0); Mean Platelet Volume 11.9 fL (7.4-10.4); Platelet Count 403 10^3/uL (130-400); Red Blood Cell Count 5.23 10^6/uL (4.70-6.10); White Blood Cell Count 9.3 10^3/uL (4.8-10.8)
[2025-02-11 05:34] LABS: INR 0.99; PT 13.3 Sec (11.4-14.6)
[2025-02-11 05:35] LABS: APTT 34.2 Sec (23.4-35.0)
[2025-02-11 05:46] LABS: ALT (SGPT) 25 U/L (0-50); AST (SGOT) 23 U/L (17-59); Albumin 3.8 g/dl (3.5-5.0); Alkaline Phosphatase 66 U/L (38-126); Blood Urea Nitrogen 25 mg/dl (9-20); Calcium 9.4 mg/dl (8.4-10.2); Carbon Dioxide 21 mmol/L (22-30); Chloride 107 mmol/L (98-107); Direct Bilirubin 0.4 mg/dl (0.0-0.4); Estimated Creatinine Clearance 46 ml/min; Glucose 81 mg/dl (70-99); Potassium 4.8 mmol/L (3.5-5.1); Sodium 137 mmol/L (135-145); Total Bilirubin 1.1 mg/dl (0.2-1.3); Total Protein 6.9 g/dl (6.3-8.2); eGFR 44.45
[2025-02-11 07:07] VITALS: BP 141/100
[2025-02-11 07:09] VITALS: BP 140/96
--- NOTE | 2025-02-11 08:41 | PTCARENOTE ---
Addendum entered by Veronica Lugo RN 02/11/25 08:52:
patient still has blurry vision in left eye.
Original Note:
received patient this am, patient is aware that he has testing to be done this am, patient was sent to U/S via stretcher. monitor shows NSR, VSS, patient verbalizes no concerns.
[2025-02-11] MEDS: ZETIA 10 MG PO (09:18)
[2025-02-11] MEDS: VITAMIN B1 100 MG PO (09:18)
[2025-02-11] MEDS: COREG 12.5 MG PO (09:18)
[2025-02-11] MEDS: LOW STRENGTH ASPIRIN 81 MG PO (09:18)
[2025-02-11] MEDS: FOLVITE 1 MG PO (09:18)
[2025-02-11] MEDS: NORVASC 10 MG PO (09:18)
--- NOTE | 2025-02-11 10:04 | PTCARENOTE ---
patient sent to cat scan via stretcher.
--- NOTE | 2025-02-11 10:13 | W.PN.CD ---
Today's Communication / Plan
-
Agree with plans for For CABG/BE clip by Dr. Mcfarlane on 02/18/25
OK for home from our perspective
Will need ophto/optometry followup
Eventual PCSK9-I
Impression / Plan
-
Background: 54-year-old man with history of familial hypercholesterolemia, family history of early coronary artery disease, and hypertension who presents with hypertensive emergency associated with chest pressure and elevated troponin.
CAD
- See Dr. Holm and CT Surgery evaluations
- Elevated troponin, Acute => suspected type II AR due to hypertensive emergency
-Continue ASA 81 mg daily.
-Continue beta-alexus.
-Statin intolerant. Continue ezetimibe.
- No cath complications (cath 02/10/2025).
Mild MR/Mild
HTN urgency/emergency => Now much improved
-Acute, threat to life.
-Initial BP 207/142 with headache, chest pressure, VINNIE, and elevated troponin/
-He stopped all BP meds 1 year ago and then was recently started on metoprolol succinate 50 mg daily by PCP. Previously on amlodipine and losartan which he thought caused myalgias.
-Goal BP now <140/90
-Carvedilol decreased to 12.5 mg twice daily for bradycardia, continue amlodipine.
-OLIVA inhibitor on hold due to VINNIE.
#VINNIE
-Functionally has 1 kidney.
-Likely due to hypertensive emergency and OLIVA inhibitor.
-Assess filling pressures.
-Continue to trend.
-Hold nephrotoxic agents.
#Blurry vision
-CT head unremarkable. Could not tolerate MRI.
- Will need ophto/optometry followup
#Familial hypercholesterolemia
-He stopped statin 2 years ago due to myalgias.
-Tried simvastatin, atorvastatin, and rosuvastatin. PCSK9 inhibitor was reportedly denied by his insurance company. He is at extremely high risk for coronary artery disease.
-Lipids 02/08/2025: TC 306 LDL 205 TG 292 HDL 43
-We discussed that he needs to reestablish care with us and get on some kind of lipid-lowering therapy
-Trial Ezetimibe 10 mg daily.
-Eventual PCSK9-I
Cost Recovery Technician: Dr. Sanchez (last seen 2021)
Subjective/Interval History:
No cath complications. See cath report. Significnat CAD.
DATA:
Renal artery US, 02/10/2025:
IMPRESSION:
1. No evidence of significant right renal arterial stenosis.
2. The left renal artery is not visualized, and was also not well seen on prior CT. There is intrarenal blood flow demonstrated within the left renal mid pole.
CT Head, 02/08/2025:
IMPRESSION:
No acute intracranial abnormality noted. No acute intracranial hemorrhage.
Nonspecific mild leukoaraiosis. Possible considerations include demyelination, gliosis, chronic microvascular white matter ischemic disease, vasculitis, migraine headaches, or other inflammatory or infectious etiology, such as Lyme disease in the
proper clinical setting.
Transthoracic Echocardiogram, 02/07/2025:
CONCLUSIONS
Normal biventricular size and systolic function without regional wall motion
abnormality. LVEF 55%.
Mild mitral regurgitation.
Mild to moderate aortic stenosis (20/13 mmHg, KATIE 1.4 cm2).
Compared to prior echocardiogram on 07/18/2018, aortic sclerosis has progressed
and patient now has mild to moderate aortic stenosis.
Physical Exam
Vital Signs/Labs
Vital Signs
Temp Pulse Resp BP Pulse Ox
97.9 F 54 18 140/96 96
02/11/25 07:07 02/11/25 10:00 02/11/25 07:07 02/11/25 09:18 02/11/25 08:46
02/10/25 02/11/25 02/12/25
06:59 06:59 06:59
Actual Weight 76.8 kg
02/11/25 04:31
02/11/25 04:31
PT 13.3 Sec (11.4-14.6) 02/11/25 04:31
INR 0.99 02/11/25 04:31
APTT 34.2 Sec (23.4-35.0) 02/11/25 04:31
Magnesium 2.2 mg/dl (1.6-2.3) 02/09/25 04:16
Triglycerides 292 mg/dl (10-149) H 02/08/25 03:39
LDL Cholesterol, Calc 205 mg/dl 02/08/25 03:39
VLDL Cholesterol, Calc 58 mg/dl (0-30) H 02/08/25 03:39
HDL Cholesterol 43 mg/dl 02/08/25 03:39
LAB Results
02/08/25
15:20
Troponin I 0.095 H*
Physical Exam
Constitutional: No acute distress
EENT: Anicteric
Cardiovascular: Rhythm & rate is regular and Pedal edema is absent
Respiratory: Respiratory effort normal and Lungs clear to auscul.
GI: Soft and Distention absent
Other: Cath Site (no bleed hematoma good pulse)
Data Reviewed
-
Date of Service: February 11, 2025
[2025-02-11 11:34] VITALS: BP 143/92
--- NOTE | 2025-02-11 11:43 | W.PN.HOSP.TC ---
Today's Communication/Plan
-
d/c home
Assessment / Plan
Assessment / Plan
1. Hypertensive emergency
Essential hypertension
-Patient with history of hypertension although took himself off of medication 1 year back, does not remember name of previous medication
-Was started on Toprol-XL 50 mg daily by primary care physician 1 week back
-Came in with visual changes/chest discomfort and found to have systolic blood pressure in 220s/renal dysfunction/elevated troponin
-off of Cardene drip
-patient on coreg 25mg/bid. Amlodipine 10 mg daily added to regimen
2. Troponin elevation
Chest pain
-Some atypical chest discomfort with minimal troponin elevation
-EKG showing signs of left ventricular hypertrophy no ST segment changes
-Troponin max of 0.2
-Echocardiogram showing preserved ejection fraction, no major valvulopathy
-Got ASA 325mg by ER physician
- Patient found to have multivessel CAD on left heart catheterization, evaluated by cardiothoracic surgeon and patient will go for elective bypass next week
3. VINNIE vs CKD
Left atrophic kidney
-Cr 1.8, previous reported cr of 1.[address] abdomen pelvis in showing left atrophic kidney, this is from according to patient
-Renal bladder ultrasound showing left kidney atrophic . right kidney normal.
-Hold lisinopril for now
- Creatinine remains stable at 1.8.
4. Alcohol use disorder
-Drinks 2-3 drinks every day
-Denies of any history of withdrawal
-Monitor for any signs
5. Visual changes
- Left eye vision blurriness, ongoing for 2 3 weeks
- Evaluated by ophthalmology before admission
- CT head w/o contrast neg for any acute issues.
- Patient provided prescription for MRI brain without contrast on outpatient basis in an open MRI facility
- Patient instructed to follow-up with ophthalmology/retina specialist patient is planning to follow-up with [facility]
History of splenectomy
Testosterone deficiency
History of thrombocytosis
Steatohepatitis
History of gout
DVT PPX - Lovenox
Full code
More than 30 minutes spent in discharge including
Final examination of the patient
Summarizing hospital stay
Instructions for continuing care to all relevant caregivers
Preparation of discharge records, prescriptions, and referral forms
Total time spent (in minutes): 39 mins
Anticipated Discharge: Today
Subjective/Interval History
-
Date of Service: February 11, 2025
Denies of having any issues overnight
Left eye visual blurriness persist
Objective Data
-
Labs:
Laboratory Results
02/11/25
04:31
WBC 9.3
Hgb 16.5
Hct 47.8
Plt Count 403 H
PT 13.3
INR 0.99
APTT 34.2
Sodium 137
Potassium 4.8
Chloride 107
Carbon Dioxide 21 L
BUN 25 H
Creatinine 1.8 H
Glucose 81
Calcium 9.4
Total Bilirubin 1.1
AST 23
ALT 25
Alkaline Phosphatase 66
Vital Signs:
Vital Signs
Temp Pulse Resp BP Pulse Ox
98.8 F 62 16 143/92 98
02/11/25 11:34 02/11/25 11:34 02/11/25 11:34 02/11/25 11:34 02/11/25 11:34
I&O
02/10/25 02/11/25 02/12/25
06:59 06:59 06:59
Intake Total 960 / 960 345 / 345
Balance 960 / 960 345 / 345
Review of Systems
-
Respiratory: Reports No Symptoms
Cardiac: Reports No Symptoms
Abdomen/GI: Reports No Symptoms
Physical Exam
-
General: No Apparent Distress and Comfortable
HEENT: Negative Oxygen
Respiratory: Clear to Auscultation
Cardiac: Regular Rhythm and S1/S2; Negative Murmur or Rub
Musculoskeletal: No Edema
Neuro: Awake, Alert, Oriented, No Motor Deficits and Nonfocal/Grossly Intact
Psych: Calm
--- NOTE | 2025-02-11 11:47 | PTCARENOTE ---
D/C instructions given to patient, verbalizes understanding. INT D/C'd, telemetry D/C'd, personal belongings packed and sent home with patient. D/C to home via wc accompanied by staff.
--- NOTE | 2025-02-11 12:00 | W.PN.UPDATE ---
Update Note
Progress Note Update
Procedure Type:�Isolated CABG
Perioperative Outcome Estimate %
Operative Mortality 0.549%
Morbidity & Mortality 4.51%
Stroke 0.455%
Renal Failure 0.678%
Reoperation 2.68%
Prolonged Ventilation 1.77%
Deep Sternal Wound Infection 0.119%
Long Hospital Stay (>14 days) 1.65%
Short Hospital Stay (<6 days)* 74%
Clinical Summary
Planned Surgery: Isolated CABG, Elective, First cardiovascular surgery
Demographics: 54 year old, male, 77kg, 173cm, BMI: 25.7 kg/m�
Lab Values: Creatinine: 1.8 mg/dL, Hematocrit: 47.8%, WBC Count: 9.3 10�/�L, Platelet Count: 393511 cells/�L
Substance Abuse: Former smoker, Alcohol use: >=8 drinks/week
Risk Factors / Comorbidities: Hypertension, Family Hx of CAD
Pulmonary RF: Mild CLD
Coronary Artery Disease: Other
Valve Disease: Aortic Stenosis, Trivial/Trace AR, Mild MR, Trivial/Trace TR
--- NOTE | 2025-02-11 12:05 | CM ---
Reviewed chart. Met with Mr. Greer to review discharge plans. He states he is feeling well and maybe able to go home soon. He states he is scheduled for PAT's on 02/14/25 for CABG on Monday02/18/25. Prior to admission he resides
alone in a three story condo with one step to enter. He has a full flight of steps to get to bedroom/full bathroom. He has a powder room on the first floor Prior to admission he was independent with ambulation and adls. He does not have any DME in
the home. He states he has a prescription plan and uses [facility]. Medical work-up in progress. The discharge plan is to return home when medically stable.
[2025-02-11 19:11] LABS: Aldosterone, Serum 25.2 ng/dL; Aldosterone/Renin Activ Ratio 8.7 ratio (<=25.0); Renin Activity Results 2.9 ng/mL/hr
--- NOTE | 2025-02-12 16:53 | W.DCSUMMARY ---
Discharge Summary
Discharge Data
Date of Admission: 02/07/25
Date of Discharge: 02/12/25
-
Pending Results: No
Hospital Course
Discharging Physician : Dr Dimitry Hanks
Disposition : To home
Primary care physician : Dr Terry Antonio
Principal Discharge diagnosis :
Hypertensive emergency
Triple-vessel coronary artery disease
Visual changes
Acute kidney injury on chronic kidney disease stage unknown
Congenitally left atrophic kidney
Chronic Discharge diagnosis :
Essential hypertension
Alcohol use disorder
History of splenectomy
Testosterone deficiency
History of thrombocytosis
Steatohepatitis
History of gout
Hospital Course :
Patient is a 54-year-old male with admission past medical history came to ER for having chest discomfort and left eye blurriness. In ER patient was found to be in hypertensive emergency with associated troponin elevation/renal dysfunction. Patient
reported to be on blood pressure medication in the past although have taken himself off 1 year back. Patient reported under significant work-related stress. Patient was admitted to ICU and was started on Cardene drip. Cardiology was involved in
care and patient was also started on oral blood pressure therapy. Patient had improvement in blood pressure and was downgraded to cardiac unit. Patient has a history of known left atrophic kidney and 1 functioning kidney only, renal and bladder
ultrasound confirmed the finding with no acute issues. For patient visual blurriness MRI brain was recommended although patient is claustrophobic. A CT head was done which was negative for any acute issues. Patient developed new renal dysfunction
as a side effect of blood pressure medication which were adjusted. In light of patient symptom pattern and troponin elevation cardiology recommended an elective heart catheterization. Post improvement of renal function patient underwent left heart
catheterization which showed triple-vessel coronary disease. Cardiothoracic surgeon was involved and recommended patient to undergo triple-vessel bypass. This was planned electively next week. Patient is being discharged home at this point with
returning for surgery next week. Patient also planning to follow-up with [facility] for evaluation for visual blurriness. Patient was also provided prescription for an outpatient open MRI. Patient discharged to home after this.
Important imaging findings :
None
Procedure findings :
None
Discharge Plan
-
Patient Disposition: Home (Routine Discharge)
Discharge Diagnosis/Procedures: Cardiac catheterization, Multivessel CAD, HTN, Vision changes
Condition: Fair
Diet: Low Cholesterol and Low Sodium
Activity: As tolerated
Driving Restrictions: No driving for 24 hours
Bathing Restrictions: OK to Shower
Activity Restrictions/Additional Instructions:
Please return 02/14 @ 0830 for pre-operative testing
your surgery is scheduled for 02/[address] Mcfarlane, please come to the hospital on 02/18 at 715. Someone from the CT surgery office will contact you to confirm your time.
Stand Alone Forms: DC Instructions- Cath/EP Lab
Referrals:
Geovanna Marshall CRNP [Specified Professional Personl] - 02/25/25 10:40 am (Cardiology followup appointment)
Kandace Gardner DO [Family Provider] - in one week
Prescriptions:
New
carvedilol 12.5 mg Tablet
12.5 mg PO BID Qty: 60 2RF
amlodipine 10 mg Tablet
10 mg PO DAILY Qty: 30 2RF
aspirin 81 mg Tablet,Chewable
81 mg PO DAILY Qty: 30 0RF
ezetimibe 10 mg Tablet
10 mg PO DAILY Qty: 30 2RF
nitroglycerin 0.4 mg tablet, sublingual
0.4 mg sublingual Q5MPRN PRN (Reason: chest pain) Qty: 90 0RF
Rx Instructions:
max x3 doses at time
Continued
testosterone cypionate 200 MG/1 ML oil
0.25 ml IM MOWEFR
Patient Comments:
no pdmp record, patient stated he gets this in a new [facility] pharmacy and is mailed to him, un known pharmacy
Discontinued
metoprolol succinate 50 mg Tablet Extended Release 24 Hr
50 mg PO DAILY
Discharge Orders:
Discharge Patient (As Directed); Ordered 02/11/25
Ordered By: Dimitry Hanks
Care Plan Goals
Care Plan Goals:
Problem: Readiness for enhanced knowledge related to diagnosis and treatment plan
Goal: Understand your diagnosis and treatment plan needs, including medications if applicable.
Instructions: Know your diagnosis, underlying causes and treatment plan options, including medications if applicable. Consult with your health care team to learn about your diagnosis and treatment plan, including medications if applicable.
Discharge Date and Time
Discharge Date/Time: 02/11/25 11:49
Print Language: FRENCH
== END 2025-02-11 11:49 | disposition home or self-care (01) | DRG 287 ==
LOC: IVU 08:27
PROVIDERS: Clinical Nurse Specialist Acute Care; Internal Medicine Cardiovascular Disease; ADMITTING PHYSICIAN Hospitalist; CONSULT PHYSICIAN Internal Medicine Critical Care Medicine; CONSULT PHYSICIAN Student in an Organized Health Care Education/Training Program; CONSULT PHYSICIAN Thoracic Surgery (Cardiothoracic Vascular Surgery); EMERGENCY PHYSICIAN Emergency Medicine; FAMILY PHYSICIAN Family Medicine
PROC: B2111ZZ Fluoroscopy of Multiple Coronary Arteries using Low Osmolar Contrast (ICD-10-PCS; 2025-02-10)
PROC: 4A023N7 Measurement of Cardiac Sampling and Pressure, Left Heart, Percutaneous Approach (ICD-10-PCS; 2025-02-10)
DX: I16.1 Hypertensive emergency (principal); H47.10 Unspecified papilledema; N17.9 Acute kidney failure, unspecified; E78.01 Familial hypercholesterolemia; F41.9 Anxiety disorder, unspecified; F10.10 Alcohol abuse, uncomplicated; R07.89 Other chest pain; H53.8 Other visual disturbances; N26.1 Atrophy of kidney (terminal); I35.0 Nonrheumatic aortic (valve) stenosis; D75.839 Thrombocytosis, unspecified; K75.81 Nonalcoholic steatohepatitis (NASH); I12.9 Hypertensive chronic kidney disease with stage 1 through stage 4 chronic kidney disease, or unspecified chronic kidney disease; N18.9 Chronic kidney disease, unspecified; I70.0 Atherosclerosis of aorta; I25.10 Atherosclerotic heart disease of native coronary artery without angina pectoris; M10.9 Gout, unspecified; R79.89 Other specified abnormal findings of blood chemistry; I25.82 Chronic total occlusion of coronary artery; Z60.2 Problems related to living alone; Q63.8 Other specified congenital malformations of kidney; Z56.6 Other physical and mental strain related to work; Z87.891 Personal history of nicotine dependence; Z82.49 Family history of ischemic heart disease and other diseases of the circulatory system; Z90.81 Acquired absence of spleen; Z88.5 Allergy status to narcotic agent; Z88.8 Allergy status to other drugs, medicaments and biological substances; Z82.3 Family history of stroke
CPT/HCPCS: 70450; 71045; 71250; 76770; 80048; 80053; 80061; 82088; 82248; 82962; 83036; 83735; 83835; 84100; 84244; 84484; 85025; 85027; 85610; 85730; 93005; 93306; 93458; 93880; 93923; 93931; 93975; 96361; 96365; 96366; 96375; 99152; 99153; 99285; C1894; Q9950; Q9967

== ENCOUNTER 2025-02-19 05:02 | Inpatient (IN) | payer BC, SELFPAY ==
--- NOTE | 2025-02-14 09:41 | CM ---
Chart reviewed. Met with the patient in PAT. Reviewed preoperative and postoperative instructions and restrictions, along with showering guidelines. Gave patient 2 soaps and Cardiac Surgery Book. Patient is agreeable to a home visit by CT
Transitional RN. Patient is independent of ADLS, lives alone in a 2STH, 3STE, 0 DME. Patient's mother will be able to help patient when he goes home. Plan is for the patient to return home with CT Transitional RN.
[2025-02-14 09:47] LABS: Blood Urea Nitrogen 26 mg/dl (9-20); Calcium 9.9 mg/dl (8.4-10.2); Carbon Dioxide 25 mmol/L (22-30); Chloride 105 mmol/L (98-107); Glucose 61 mg/dl (70-99); Potassium 5.4 mmol/L (3.5-5.1); Sodium 140 mmol/L (135-145); eGFR 41.66
[2025-02-14 13:45] VITALS: BMI 26.4
[2025-02-19 05:04] VITALS: BP 172/126
[2025-02-19 05:05] VITALS: BP 169/121
[2025-02-19 05:06] VITALS: BP 167/117
[2025-02-19 05:16] VITALS: BMI 25.3
[2025-02-19] MEDS: PROTONIX 40 MG PO (05:38)
[2025-02-19] MEDS: BACTROBAN 2% OINTMENT 1 APPLIC NASAL ×2 (05:38→20:13)
[2025-02-19] MEDS: LOPRESSOR 25 MG PO (05:38)
[2025-02-19] MEDS: MAGNESIUM OXIDE 500 MG PO (05:38)
--- NOTE | 2025-02-19 06:00 | PTCARENOTE ---
admitted pt into CVICU 2265. pt confirmed 2 showers at home. NPO since midnight. pt clipped and prepped for CVOR. pre-op meds given. pre-op education provided. all questions answered. occupational health coordinator to CVOR.
--- NOTE | 2025-02-19 06:18 | W.CVOR.SURPR ---
CVOR Surgeon Immed Pre Op
-
I have examined this patient prior to performance of the scheduled procedure.
The patient's condition is unchanged from the time of the dictated/written History and
Physical and the patient is able to undergo the scheduled procedure.
CABG x 4 + BE Clip
[2025-02-19 07:53] LABS: ACT+ - POC 131 Seconds (82-134)
[2025-02-19 08:20] LABS: Urine Albumin 3+ (Neg - Trace); Urine Bilirubin Negative (Negative); Urine Character Clear (Clear); Urine Color Yellow; Urine Glucose Negative (Negative); Urine Ketone Negative (Negative); Urine Leukocyte Negative (Negative); Urine Nitrite Negative (Negative); Urine Occult Blood 1+ (Negative); Urine Specific Gravity 1.015 (<1.030); Urine Urobilinogen Negative (Neg - 1+)
[2025-02-19 08:29] LABS: Urine Mucus Few; Urine White Cell 0-2 /HPF (0-5)
[2025-02-19 08:30] LABS: Urine Bacteria Few (Negative)
[2025-02-19 08:57] LABS: ACT+ - POC 358 Seconds (82-134)
[2025-02-19 09:04] LABS: ACT+ - POC 414 Seconds (82-134)
[2025-02-19 09:14] LABS: B.E. - POC -1.8 mmol/L; Glucose - POC 105 mg/dl (70-99); HCO3 - POC 23 mmol/L (21-28); Hematocrit - POC 44 % PCV (42-52); Hemodilution- POC No; Ionized Calcium - POC 1.16 mmol/L (1.15-1.33); Lactate - POC 0.55 mmol/L (0.36-0.75); O2 Saturation %Calculated-POC 97.8 % (94-98); PCO2 - POC 38 mmHg (35-48); PO2 - POC 102 mmHg (83-108); Potassium - POC 3.7 mmol/L (3.5-5.1); Sodium - POC 140 mmol/L (136-145); Specimen Type - POC Arterial; pH - POC 7.39 (7.35-7.45)
[2025-02-19 09:20] LABS: ACT+ - POC 786 Seconds (82-134)
[2025-02-19 09:30] LABS: ACT+ - POC 581 Seconds (82-134)
[2025-02-19 09:44] LABS: B.E. - POC 3.5 mmol/L; Glucose - POC 88 mg/dl (70-99); HCO3 - POC 30 mmol/L (21-28); Hematocrit - POC 38 % PCV (42-52); Hemodilution- POC Yes; Ionized Calcium - POC 1.06 mmol/L (1.15-1.33); Lactate - POC 0.39 mmol/L (0.36-0.75); O2 Saturation %Calculated-POC 99.8 % (94-98); PCO2 - POC 50 mmHg (35-48); PO2 - POC 219 mmHg (83-108); Potassium - POC 4.9 mmol/L (3.5-5.1); Sodium - POC 138 mmol/L (136-145); Specimen Type - POC Arterial; pH - POC 7.38 (7.35-7.45)
[2025-02-19 09:55] LABS: ACT+ - POC 473 Seconds (82-134)
[2025-02-19 10:14] LABS: Glucose - POC 100 mg/dl (70-99); HCO3 - POC 26 mmol/L (21-28); Hematocrit - POC 39 % PCV (42-52); Hemodilution- POC Yes; Hemoglobin Calculated - POC 13.2; Ionized Calcium - POC 1.07 mmol/L (1.15-1.33); Lactate - POC 0.38 mmol/L (0.36-0.75); O2 Saturation %Calculated-POC 99.8 % (94-98); PCO2 - POC 43 mmHg (35-48); PO2 - POC 252 mmHg (83-108); Potassium - POC 5.3 mmol/L (3.5-5.1); Sodium - POC 138 mmol/L (136-145); Specimen Type - POC Arterial; pH - POC 7.39 (7.35-7.45)
[2025-02-19 10:25] LABS: ACT+ - POC 499 Seconds (82-134)
[2025-02-19 11:01] LABS: B.E. - POC 0.2 mmol/L; Glucose - POC 121 mg/dl (70-99); HCO3 - POC 25 mmol/L (21-28); Hematocrit - POC 39 % PCV (42-52); Hemodilution- POC Yes; Hemoglobin Calculated - POC 13.3; Ionized Calcium - POC 1.06 mmol/L (1.15-1.33); Lactate - POC 0.61 mmol/L (0.36-0.75); O2 Saturation %Calculated-POC 99.8 % (94-98); PCO2 - POC 40 mmHg (35-48); PO2 - POC 218 mmHg (83-108); Potassium - POC 5.7 mmol/L (3.5-5.1); Sodium - POC 138 mmol/L (136-145); Specimen Type - POC Arterial
[2025-02-19 11:07] LABS: ACT+ - POC 131 Seconds (82-134)
--- NOTE | 2025-02-19 11:30 | CM ---
CM following for DC planning needs.
Patient in OR today for planned CABG.
Reviewed initial assessment. Pt. resides alone in a private, 2 story home w/ 3 DAMASO. Functionally, patient is indep. [employer] w/ ADLs, mobility without the use of any assisted device.
Antic. DC to home w/ CT Transitional Care RN.
CM to follow.
--- NOTE | 2025-02-19 11:57 | W.PN.CT.SURG ---
CT Surgery Operative Note
-
CARDIAC SURGERY OPERATIVE REPORT
Preoperative Diagnosis: Multivessel Coronary Artery Disease with possible ACS event/NSTEMI
Postoperative Diagnosis: Same
Procedure(s) Performed:
1. Standard sternotomy with aortic and right atrial cannulation
2. Internal mammary artery harvesting, left
3. Multi arterial coronary artery bypass grafting x 4 (In situ MC to LAD, Ao to left radial to ramus, Ao to RSVG to right acute marginal, Ao to RSVG to RPDA)
4. Open left radial artery harvesting
5. Endoscopic vein harvesting of right lower extremity
6. Left atrial appendage exclusion [45 mm clip, serial #[id number]]
7. Transesophageal echocardiography
Date of Surgery: 02/19/2025
Comorbidities:
1. Hypertension
2. Hyperlipidemia
3. Hypertensive emergency
4. Multivessel coronary artery disease
5. Possible NSTEMI on admission last time
6. History of splenectomy and exploratory laparotomy
Attending Surgeon: Clemente Mcfarlane MD, MS
Assistants: Eleonora Campbell PA-C (present and necessary to miller first, open left radial artery harvest, retraction, suction, exposure, suture management, and wound closure under my direction), Sara Wooten PA-C (endo vein harvest)
Anesthesiology: Claude Ornelas MD and Myrna Olmedo CRNA
Scrub and Circulating RNs: Karly Patel RN, Samantha Middleton RN
Sanitation Technician: Ansley Cote CCP
Anesthesia: GETA
EBL: per perfusion records
Products: None
CPB Time: 98 minutes
Aortic Cross Clamp Time: 86 minutes
Indication(s) for Procedures: This is a 54-year-old male who presented to the hospital with chest pain was found to have hypertensive emergency with blood pressures greater than 200. He had a very mild troponin leak and underwent a left heart cath
which demonstrated multivessel coronary disease with a chronic total occlusion of the proximal RCA. Given his young age, he was offered surgical revascularization as well as management of the left atrial appendage.
Conduit(s) Quality:
MC -skeleton/excellent quality, good flow upon transection of the distal end
RSVG -average/large and dilated, minimal varicosities but overall there was a mismatch in size to the targets
Left radial�excellent/good quality tissue and size of [place] radial
Target(s) Quality:
RPDA -good/there was at least 40 cc a minute of flow at a pressure of 80 mmHg, Transonic flow probe assessment of the graft yielded a mean flow of 14 cc a minute with a pulsatile index of 3.3
Right acute marginal�good/there was a mean flow of approximately 40 cc a minute at a pressure of 80 mmHg on test dosing antegrade, flow probe assessment yielded a mean flow of approximately 20 cc a minute with a pulse index of 4.0
Ramus-excellent/very large sized target with appropriate matching to the radial distal end, mean flow in this graft was 27 cc a minute with a pulsatile index of 5.7 this was grafted directly off the aorta
LAD -good/there was an excellent biphasic signal on Doppler however mean flow was only approximately 7 cc a minute with a pulse index of 4.7 which is lower, there was excellent visual flow in the LAD territory with visual pinking up of the
myocardium upon release of the bulldog
Findings: His left ventricular ejection fraction preoperatively was approximately 40%, there was regional wall motion abnormalities on NIESHA preoperatively particular towards the anterior septum and inferior todd. Following surgery his EF did
improve significantly to normal at 50% and most of the regional wall motion abnormalities did improve. After chest closure, there was a period in which he became slightly hypotensive and I suspect there was some entrainment of air into his grafts
as there was some global LV dysfunction. Driving up of the blood pressure with dobutamine as well as vasodilation with nitro as he has baseline very hypertensive yielded significant improvement back to normal EF of 45-50%. The MC was harvested in
a skeletonized fashion. Following bypass grafting, test dose cardioplegia was given down each distal and confirmed patency and hemostasis. Each distal was probed both proximally and distally to confirm disease and patency, respectively. He did not
require any blood products, he was placed on 2.0 of Dobutrex after chest closure, he did not require any pacing. I did search for the distal circumflex which was very small and emanating from the groove and so I felt this was not graftable. His
left atrial appendage was verified to be free of any thrombus or debris preoperatively and found to be totally occlusive postoperatively with a 45 mm device.
Description of Procedure: The patient was taken to the operating room. Their identity and procedure to be performed were verified and they were positioned supine on the operating table. Induction via general anesthesia with endotracheal intubation
was performed and central venous access and arterial monitoring were inserted. A preoperative transesophageal echocardiogram was performed to assess cardiac function and valvular function. The patient was then prepped and draped from chin to feet in
a sterile fashion. A preoperative time-out was performed with all members of the team present. A midline chest incision was performed along with median sternotomy. Simultaneous endoscopic access of the right lower extremity for saphenous vein
harvest was obtained along with administration of an initial 5,000 units of IV heparin. The left radial was also prepped and a small segment was taken in an open fashion. A RulTract sternal retractor was positioned to exposure the left internal
mammary bed. The mammary was harvested and found to have good flow. A bulldog clamp was applied to the distal end of the mammary after dividing it. It was wrapped in a papaverine soaked RayTec and replaced back into the left hemithorax. The RulTract
was exchanged for a median sternal retractor. The innominate vein was isolated. Full heparinization was given (a total of 62,000 units). We created a pericardial well. The aortic cannulation site was chosen where it was soft, pliable, and free of
calcium. Cannulation was performed with an arterial cannula in the ascending aorta and a triple-stage venous cannula through the right atrial appendage. The arterial cannula line had an appropriate bounce and correlating pressures with test dosing.
Next, a root vent/antegrade cannula was inserted into the ascending aorta. The ACT was confirmed to be over 400 and retrograde autologous priming was performed before commencing cardiopulmonary bypass. The pulmonary artery was away from
the aorta to facilitate a clamp site. The aortic cross-clamp was placed after decreasing the flow on the bypass and mean arterial pressure. A total of 1.2L initial dose of antegrade Del-Nido cardioplegia solution was given and planned for re-dosing
every 75 minutes as necessary. There was rapid electro-mechanical arrest of the heart at 300 cc of cardioplegia. The left ventricle was observed for distention on echocardiogram and manual palpation. Cold slush was placed into a sponge and topically
on the RV while we systemically cooled to 34 degrees centigrade. Once the heart was fully arrested the heart was rotated medially and the ligament of Tanner was divided using electrocautery and the left atrial appendage was clipped flush to the
base.
I positioned the heart to expose the distal right coronary at the posterior descending artery. A seldovia blade was used to expose the coronary and perform the arteriotomy. Coronary Emery scissors were used to enlarge the incision. The saphenous vein
was trimmed and beveled to an appropriate size. The distal anastomosis was performed using 7-0 prolene in an end-to-side fashion. Antegrade cardioplegia was administered into the graft. Appropriate hemostasis and flow were confirmed. The graft was
measured for length to the aorta and cut. I searched for the distal circumflex however was able to find a suitable target and so I looked anteriorly on the heart and is able to find an acute marginal given his chronically occluded RCA proximally I
felt this was a graftable target. The vein was beveled accordingly and the distal target was prepared in a similar fashion. An end-to-side anastomosis was created with 7-0 Prolene and test dosing of antegrade was given down to verify both
hemostasis and flow. Both were found to be excellent. The vein graft was then cut to length to perform a proximal anastomosis. A suitable site on the large ramus was chosen. We dissected and prepared the distal target in a similar fashion. An
end-to-side anastomosis was created with a 7-0 prolene. Antegrade cardioplegia was administered into the graft with the aid of an Angiocath. Appropriate hemostasis and flow were confirmed. The graft was measured for length to the aorta and cut. A
suitable target on the mid/distal left anterior descending was identified. We dissected and prepared the distal target in a similar fashion. We retrieved the MC from the chest and created a pericardial opening while being cognizant of the phrenic
nerve to facilitate the course of the mammary. The distal end of the mammary was prepped and beveled to size. We verified orientation and length of the ALBERTO and found brisk flow. An end-to-side anastomosis was created with a 7-0 prolene. We
temporarily released the bulldog clamp on the mammary to inspect flow. Perfusion to the LAD territory was visualized and hemostasis was confirmed. The bull clamp was replaced on the mammary. The heart was filled and the root was distended with
antegrade cardioplegia to make final assessment of graft length and orientation. We created 3 aortotomies using a #11 blade then a 4.0mm aortic punch. The proximal anastomoses were created in an end-to-side fashion using 6-0 prolene for the vein
graft and 7-0 Prolene for the proximal radial graft. At the the same time, we re-warmed to 36.5 degrees centigrade. The bulldog clamp was removed from the mammary. Temporary bipolar ventricular pacing wires were placed on the base of the right
ventricle. The patient was placed in a Trendelenburg position and flows on bypass were lowered. The aortic cross clamp was removed and flows were slowly brought back up. A 30-gauge needle was used to de-air the vein grafts. All bypass grafts were
inspected and were free from kinking or twisting. The distal and proximal anastomoses appeared hemostatic. Once transesophageal echocardiography appeared satisfactory for de-airing, the flows were temporarily lowered for root vent removal. After
verifying acceptable parameters, we initiated weaning from cardiopulmonary bypass. Once we were off cardiopulmonary bypass, the venous cannula was clamped and removed. A test dose of protamine was administered and the patient was monitored for any
adverse reaction before resuming protamine. Once half of the protamine dose was delivered, pump suckers were turned off and the systolic blood pressure was lowered for aortic decannulation. The aortic cannula was removed and pursestrings were tied
down. All cannulation sites were oversewn with a 4-0 prolene. The mammary bed was inspected and hemostasis was confirmed. Once the mediastinum was hemostatic, 19Fr Jay drain was placed in the left pleural cavity and two 24Fr Jay drains were
placed within the pericardium. The sternum was approximated with 4 #7 single and 3 #8 double stainless steel wires. Fascia was approximated with #1 vicryl suture. The subcutaneous, dermis and epidermis were closed in layers in a running fashion. The
skin wound was cleansed and dressed.
All instrument, sponge, and needle counts were confirmed to be correct x 2 at the end of the operation. The patient was transferred to the cardiac intensive care unit in critical but stable condition.
I, Dr. Clemente Mcfarlane, was present, scrubbed for, and performed all critical elements of this procedure.
Clemente Mcfarlane MD, MS
Cardiothoracic Surgeon
[facility]
This operative dictation was created using the [employer] dictation system. Please excuse any grammatical, typographical, or 'sound alike' errors
[2025-02-19 12:35] LABS: B.E. - POC 0.1 mmol/L; Glucose - POC 100 mg/dl (70-99); HCO3 - POC 24 mmol/L (21-28); Hematocrit - POC 36 % PCV (42-52); Hemodilution- POC Yes; Hemoglobin Calculated - POC 12.1; Ionized Calcium - POC 1.27 mmol/L (1.15-1.33); Lactate - POC 1.08 mmol/L (0.36-0.75); O2 Saturation %Calculated-POC 99.8 % (94-98); PCO2 - POC 33 mmHg (35-48); PO2 - POC 224 mmHg (83-108); Potassium - POC 4.9 mmol/L (3.5-5.1); Sodium - POC 140 mmol/L (136-145); Specimen Type - POC Arterial; pH - POC 7.46 (7.35-7.45)
[2025-02-19 12:45] LABS: B.E. -2.5 mmol/L; HCO3 22.5 mmol/L (21-28); Ionized Calcium 1.17 mMOL/L (1.15-1.33); O2 Saturation % 99.8 % (94-98); PCO2 39 mmHg (35-48); PO2 98 mmHg (83-108); Potassium 3.9 mMOL/L (3.5-5.1); Sodium 134 mMOL/L (136-145); pH 7.37 (7.35-7.45)
[2025-02-19 12:46] LABS: Glucose - Point of Care 92 mg/dl (70-99); O2 Therapy VENT
[2025-02-19 12:47] LABS: Hematocrit 36.2 % (39.0-52.0); Hemoglobin 12.8 g/dL (13.0-18.0); Platelet Count 249 10^3/uL (130-400)
--- NOTE | 2025-02-19 12:48 | W.PN.UPDATE ---
Update Note
Progress Note Update
IV fluids: 1100 mL
Crystalloid: 1200 mL
U.O.: 350 mL
UF: 1000 mL
Blood: None
Wires: V-wires (30/5/0.8)
Inotropes: Dobutamine - 1
Pressors: levophed - off
Sedatives: precedex - 0.5
NEURO: sedated on Precedex, pupils +2mm B/L
RESP: #8 ETT @ 24cm> 14/550/40/5 Lungs clear B/L. 2 mediastinal (15 cc on arrival) and R/L pleural (20cc on arrival) chest tubes to -20cm suction. Sanguineous drainage
CV: RRR +S1, S2, no S3, no rub, no murmur. Dermabond to median sternotomy. RIJ w/[place] locked @ 45 cm. PA 20/11; CVP 6; C.O 6.1/CI 3.2
ABD: round, soft, no BS
EXT: no edema, +2 DP pulses B/L, no femoral bruit, RLE OILVA wrap intact; L radial A-line intact
: Day with clear yellow urine
A/P: POD #0 s/p CAB x 4 (MC - LAD, Radial - Ramus, SVG - OM, SVG - PDA)
NIESHA: EF 45-50%
- wean and extubate
- Monitor CT and urine output
- Follow up labs and CXR
- Wean levophed for maps >65/SBP goal 100-130
- Cardene gtt for blood pressure & radial graft
>> Norvasc 2.5 mg PO ordered tomorrow
>> Anticipate aggressive blood pressure management due to recent HTN urgency hospitalization
- Nitro gtt for blood pressure control
- Will start ASA tonight
- EKG pending and will send to cards
- Cards consulted
# acute surgical blood loss anemia-expected
- trend CBC
# Post-op hyperglycemia (A1C 5.2%)
- insulin infusion x 24h
# Hyperlipidemia
- resume statin when tolerating PO
[2025-02-19 12:57] LABS: INR 1.21; PT 15.8 Sec (11.4-14.6)
[2025-02-19 12:58] LABS: APTT 30.6 Sec (23.4-35.0)
--- NOTE | 2025-02-19 12:58 | CON.INTV ---
Consultation
Consultation Request
Date/Time Consultation Requested: 02/19/25-12:30 PM
Date/Time Consultation Performed: 02/19/25-1 p.m.
Requesting Provider: cardiothoracic surgery
Performing Provider: Dr. Roy
Reason for Consultation: postoperative ventilator/critical care management
Medical History
-
Chief Complaint: CAD
History of Present Illness:
54-year-old former smoking male with a history of hypertension, alcohol use disorder recently admitted with hypertensive emergency with troponin elevation and noted to have significant CAD and underwent CABG-disaster recovery specialist consulted for postoperative
ventilator/critical care management 02/19/25. Patient is sedated on a ventilator and review of systems was unobtainable. Operative records were reviewed. Chest tube output was reviewed. Pressors were reviewed.
Past Medical History
Past Medical History: None ( CAD. Hypertension. Recent hypertensive urgency. Alcohol use disorder. Steatohepatitis. History of gout. History of thrombocytosis. Testosterone deficiency. Splenectomy.)
Social History
Tobacco: Former Smoker
Alcohol: Daily
Drug: None
Living: With Family
Occupational Exposures: No known asbestos exposure
Environmental Exposures: no known tuberculosis exposure
Family History
Family History: Reviewed & Not Pertinent
Allergies / Home Medications
Allergies
Allergy/AdvReac Type Severity Reaction Status Date / Time
codeine Allergy rashes Verified 02/12/25 11:17
Valfmyi-ILQ-OaA Reductase AdvReac cramps Verified 02/12/25 11:17
Inhibitor
[Eloafmk-Jdn-Jym Reductase
Inhibitor]
Home Medications
�Medication �Instructions �Recorded �Confirmed �Last Taken �Type
testosterone cypionate 200 mg/mL 0.25 ml IM MOWEFR 07/15/18 02/19/25 02/17/25 History
intramuscular oil
amlodipine 10 mg tablet 10 mg PO DAILY #30 tabs 02/11/25 02/19/25 02/18/25 08:00 Rx
aspirin 81 mg chewable tablet 81 mg PO DAILY #30 tabs 02/11/25 02/19/25 02/18/25 08:00 Rx
carvedilol 12.5 mg tablet 12.5 mg PO BID #60 tabs 02/11/25 02/19/25 02/18/25 20:00 Rx
ezetimibe 10 mg tablet 10 mg PO DAILY #30 tabs 02/11/25 02/19/25 02/18/25 08:00 Rx
nitroglycerin 0.4 mg sublingual 0.4 mg sublingual Q5MPRN PRN chest 02/11/25 02/19/25 Unknown Rx
tablet pain #90 tabs
Review of Systems
-
Unable to Obtain full review of systems at this time due to: Other ( per HPI)
Vitals / Labs / Diagnostic Testing
Vital Signs
Temp Pulse Resp BP Pulse Ox
98.3 F 80 14 167/117 94
02/19/25 05:45 02/19/25 12:50 02/19/25 12:50 02/19/25 05:38 02/19/25 12:57
Laboratory Results
02/19/25
12:38
pH 7.37
pCO2 39
pO2 98
HCO3 22.5
O2 Delivery Level Vent
Diagnostic Testing:
Physical Exam
-
Exam:
well-nourished and well-developed in no apparent distress
HEENT-atraumatic, normocephalic, oral tracheal intubation
Heart-regular rate and rhythm-no murmurs, rubs or gallops
Chest-clear to auscultation, no wheezes, crackles, median sternotomy bandage is not removed
Abdomen soft nondistended
Extremities-no cyanosis, clubbing, edema and good peripheral pulses
Integument-intact, no rashes, lesions or ecchymosis
Neurologically not alert, not oriented, not moving any of his extremities sedated on a ventilator
Assessment
-
54-year-old former smoking male with a history of hypertension, alcohol use disorder recently admitted with hypertensive emergency with troponin elevation and noted to have significant CAD and underwent CABG-disaster recovery specialist consulted for postoperative
ventilator/critical care management 02/19/25
Coronary artery disease with preoperative preserved EF
Status post x CABG x 4 /left atrial appendage clip-Dr. Mcfarlane 02/19/25
Mild anemia-hemoglobin 12.8
Renal insufficiency-serum creatinine 1.7
Conditions present prior to admission:
CAD.
Hypertension.
Recent hypertensive urgency.
Alcohol use disorder.
Steatohepatitis.
History of gout.
History of thrombocytosis.
Testosterone deficiency. Splenectomy.
Plan
ventilator settings reviewed
FiO2 will be weaned
Minute ventilation will be adjusted
Arterial blood gases will be monitored
Spontaneous breathing trial will be attempted with hopeful extubation after anesthesia/sedation wear off
Pulmonary artery catheter parameters will be followed
Pressors/antihypertensive/inotropes/diuretics will be provided as needed
Monitor chest tube output
Monitor hemoglobin
Monitor platelet count and coags
Transfuse blood product if needed
CT surgery following chest tubes
Monitor blood sugar
Insulin drip per protocol
Aspiration precautions
VAP prevention protocol
DVT prophylaxis
Early nutrition
Early mobilization
Outpatient pulmonary follow-up recommended-ongoing smoking cessation counseling, PFT, screen for yearly low-dose lung cancer screening CT
Critical care statement: A total of 55 minutes of critical care time was provided for this patient today. This includes management of ventilator, spontaneous breathing trial, arterial blood gases, pressors, of unstable vital signs, evaluation of the
patient at bedside, reviewing the patient's pertinent medical records including radiographs, microbiology, laboratory evaluations, and discussion with primary team and critical care nursing.
Diagnostic data:
Chest x-ray 02/08/25-NAD
CT chest 02/11/25-mild calcified atherosclerotic plaque in the coronary arteries, mild cardiomegaly, moderate mosaic pattern throughout both lower lobes secondary obstructive small airways disease
Echocardiogram 02/07/25-EF 55%, mild mitral regurgitation, moderate aortic stenosis-KATIE 1.4 cm
Cardiac catheterization 02/07/25-chronic total occlusion mid RCA, 70% lesion proximal LAD, 70% lesion proximal third large ramus intermedius and 70% lesion of AV groove distal circumflex, moderately elevated filling pressures with evidence of
diastolic dysfunction
Spirometry 02/18/25-FEV1 2.84-80%, FVC 3.3-73%
Data Reviewed
-
PFT: Report reviewed by me
EKG: Report reviewed by me
Radiology: Report reviewed by me
CT Scan: Report reviewed by me
Medical Tests (Nuc Med, Echo etc): Report reviewed by me
Labs: Labs reviewed by me
Old Records: Reviewed
Critical Care Time (in minutes): 55
[2025-02-19 12:59] LABS: Blood Urea Nitrogen 25 mg/dl (9-20); Estimated Creatinine Clearance 49 ml/min; Glucose 98 mg/dl (70-99)
[2025-02-19 13:00] LABS: Glucose - Point of Care 93 mg/dl (70-99)
--- NOTE | 2025-02-19 13:00 | PTCARENOTE ---
Patient received from [facility] s/p CABG x 4/LAAL. RIJ Cordis/[place]-Pamela catheter, R radial arterial lines present - leveled, flushed, and calibrated w/good waveforms returned. Epicardial V-wire to pulse generator, tested at bedside by ARSALAN, set to backup
rate 30bpm, no spikes noted. Mediastinal chest tubes x 2, Y-connected to one pleurevac, L pleural chest tube to separate collection chamber - both placed to -20cm suction w/no air leaks or crepitus noted. Day catheter to gravity. All procedural
sites stable. Labs drawn, EKG performed, pcxr obtained. Advised by ARSALAN to transition from Cardizem to nicardipine infusion. Initial CI >2. See work list for full assessment, interventions performed, and intravenous infusion rates and titrations.
[2025-02-19] MEDS: NSS 500 IV (13:04)
[2025-02-19] MEDS: ANCEF 10 IV ×2 (13:04)
[2025-02-19] MEDS: KCL 50 IV ×2 (13:11→15:12)
[2025-02-19] MEDS: CALCIUM GLUCONATE 100 IV (13:11)
[2025-02-19] MEDS: DILAUDID 0.25 MG IV ×2 (13:42→20:12)
[2025-02-19] MEDS: TYLENOL PO (13:42)
[2025-02-19 14:01] LABS: Glucose - Point of Care 109 mg/dl (70-99)
[2025-02-19 15:00] LABS: Glucose - Point of Care 109 mg/dl (70-99)
[2025-02-19 15:03] LABS: B.E. - POC -0.9 mmol/L; Blood Urea Nitrogen - POC 26 mg/dl (3-120); Chloride - POC 107 mmol/L (96-111); Creatinine - POC 1.79 mg/dl (0.3-1.0); Glucose - POC 133 mg/dl (70-99); HCO3 - POC 26 mmol/L (21-28); Hematocrit - POC 43 % PCV (42-52); Hemodilution- POC Yes; Hemoglobin Calculated - POC 14.5; Lactate - POC 0.82 mmol/L (0.36-0.75); O2 Saturation %Calculated-POC 91.1 % (94-98); PCO2 - POC 48 mmHg (35-48); PO2 - POC 66 mmHg (83-108); Potassium - POC 4.5 mmol/L (3.5-5.1); Sodium - POC 142 mmol/L (136-145); Specimen Type - POC Arterial; pH - POC 7.33 (7.35-7.45)
--- NOTE | 2025-02-19 15:07 | W.PN.CD ---
Addendum entered and electronically signed by José Luis Sharif MD 02/19/25 15:37:
I saw and examined the patient.
The PHOTOVOLTAIC PANEL INSTALLER's note was reviewed and I agree with the note.
Comment: His LVEF was normal 2 weeks ago. Anticipate checking echo in the 2-12 week time frame to see if EF has recovered or not and adjust meds accordingly.
Original Note:
Today's Communication / Plan
-
Close post-op monitoring and care with weaning of drips as tolerated per CT surgery/CVICU protocol
Impression / Plan
-
54-year-old male with history of familial hypercholesterolemia, hypertension, and coronary artery disease who is now s/p CABG.
Coronary artery disease:
-s/p CABG x 4 (MC - LAD, Radial - Ramus, SVG - OM, SVG - PDA), Dr. Mcfarlane 02/09/25
-intubated/sedated at time of my assessment
-CT's, Day in place
-remains on dobutamine and nicardipine, both of which require intensive monitoring
-post-op EKG and tele SR- monitor closely
-NIESHA post-op: EF 45-50%. Intra-op initial 40%. Echo 02/07/25: EF 55%.
-ASA, BB. Statin intolerant. PCSK9I as OP. On Zetia.
HTN:
-monitor post-op
-was on CCB, BB as OP
Familial hypercholesterolemia:
-statin intolerant, on zeta. Add PCSK9I as OP
Physical Exam
Vital Signs/Labs
Vital Signs
Temp Pulse Resp BP Pulse Ox
98.6 F 75 21 167/117 93
02/19/25 15:00 02/19/25 15:02 02/19/25 15:00 02/19/25 05:38 02/19/25 15:02
02/18/25 02/19/25 02/20/25
06:59 06:59 06:59
Actual Weight 75.5 kg
02/19/25 12:38
PT 15.8 Sec (11.4-14.6) H 02/19/25 12:38
INR 1.21 02/19/25 12:38
APTT 30.6 Sec (23.4-35.0) 02/19/25 12:38
Magnesium 3.0 mg/dl (1.6-2.3) H 02/19/25 12:38
Physical Exam
Constitutional: No acute distress
EENT: Anicteric
Cardiovascular: Rhythm & rate is regular
Respiratory: Lungs clear to auscul. and Other (intubated, ventilated)
Neuro/Psych: Other (sedated)
Other: Skin (midsternal incision no redness, drainage, swelling, well-approximated)
Data Reviewed
-
Date of Service: February 19, 2025
EKG: Tracing Personally Visualized and interpreted (SR) and Other (SR)
Echo: Report Reviewed by me (EF as noted)
--- NOTE | 2025-02-19 15:10 | RESPNOTE ---
patient extubated at this time without incident. 96% on 6L.
[2025-02-19] MEDS: VENTOLIN NEBULES 2.5 MG INH (15:11)
[2025-02-19] MEDS: TORADOL 15 MG IV (15:19)
--- NOTE | 2025-02-19 15:22 | PTCARENOTE ---
Patient noted to be overbreathing ventilator. Placed to CPAP wean. No apnea noted, good TV, SaO2 @ 92-93%. ABG obtained. Orders to extubate given. SaO2 93% on 6lnc. Patient tolerated well.
[2025-02-19] MEDS: OFIRMEV 100 IV (15:35)
[2025-02-19] MEDS: PACERONE PO (15:41)
[2025-02-19] MEDS: NEURONTIN PO (15:41)
[2025-02-19 16:03] LABS: Glucose - Point of Care 93 mg/dl (70-99)
[2025-02-19] MEDS: LR 250 ML IV (16:09)
[2025-02-19 16:42] LABS: Hematocrit 36.4 % (39.0-52.0); Hemoglobin 12.8 g/dL (13.0-18.0); Platelet Count 300 10^3/uL (130-400)
[2025-02-19 17:00] LABS: Glucose - Point of Care 87 mg/dl (70-99)
[2025-02-19] MEDS: ROXICODONE 5 MG PO ×2 (17:18→21:40)
[2025-02-19] MEDS: LOW STRENGTH ASPIRIN 81 MG PO (17:18)
[2025-02-19 18:27] VITALS: BP 102/74
[2025-02-19 19:00] LABS: Glucose - Point of Care 120 mg/dl (70-99)
[2025-02-19] MEDS: ANCEF 5 IV (20:12)
[2025-02-19] MEDS: SENOKOT-S 1 TABLET PO (20:12)
--- NOTE | 2025-02-19 20:30 | PTCARENOTE ---
Assumed care of pt from dayshift RN. Walking rounds completed. Pt is AAOx4. Appropriate. STEEL. Sleepy. SR on the tele monitor. HR 60s. Audible heart tones. +Rub. Temporary epicardial v-wire set to backup of 30/5. BP 100s/60s. CVP ~ 10. PAPs
20s/teens. CI: 2.26. B/L DP pulses palpable. Left ulnar pulse weak on palpation. Right radial pulse palpable. Pt on 3 L NC. POX 94%. Lung sounds diminished at the base. Mediastinal CTx2 and Left pleural CT to -20 suction, no airleak noted at this
time, and output WNL. Deep breathing and IS encouraged. Abdomen soft/nontender. +BS. Day catheter in place and draining yellow urine. No nausea. Sternal incision approximated. Left radial graft site intact and wrapped in OLIVA. Right leg SVG site
intact and wrapped in OLIVA. Right groin puncture approximated. Right IJ cordis w/ swan floated to 45 cm intact. Right radial a-line intact. PIV x 1 intact. All lines leveled, zeroed, and flushed. Glycemic protocol followed. Dobutamine and Cardene
infusing as ordered. See MAR for pain medication administration. See worklist for full nursing assessment and interventions. Call akbar within reach.
[2025-02-19 21:12] LABS: Glucose - Point of Care 84 mg/dl (70-99)
[2025-02-19] MEDS: NEURONTIN 100 MG PO (21:12)
[2025-02-19] MEDS: PACERONE 200 MG PO (21:12)
[2025-02-19] MEDS: TYLENOL 1000 MG PO (21:12)
[2025-02-19] MEDS: DILAUDID 0.5 MG IV (21:53)
[2025-02-19 22:01] VITALS: BP 100/66
[2025-02-19 23:08] LABS: Glucose - Point of Care 92 mg/dl (70-99)
[2025-02-20] VITALS (24 sets, daily range): BP systolic 111–158; BP diastolic 69–101; BMI 26.2
[2025-02-20] MEDS: DILAUDID 0.25 MG IV ×2 (00:17→04:33)
--- NOTE | 2025-02-20 00:34 | PTCARENOTE ---
Pt reassessed. Pt remains SR on the tele monitor. HR 60s. Temporary epicardial v-wire intact. No pacer spikes noted. BP stable at 110s-120s/60-70s. CVP ~ 11. PAPs 20s/teens. CI > 2. Pt on 3 L NC. POX 92%. Mediastinal CTx2 intact, to -20 suction, and
output WNL. Intermittent tidaling noted in mediastinal CT. L pleural CT intact, to -20 suction, and output WNL. Day catheter intact and draining yellow urine. All surgical sites stable. [place] and a-line maintained. All lines leveled, zeroed, and
flushed. Cardene and dobutamine infusing. Glycemic protocol followed. See MAR for pain medication administration. Call akbar within reach.
[2025-02-20 01:03] LABS: Glucose - Point of Care 90 mg/dl (70-99)
[2025-02-20] MEDS: DILAUDID 0.5 MG IV ×6 (02:56→22:04)
[2025-02-20 03:00] LABS: Glucose - Point of Care 82 mg/dl (70-99)
[2025-02-20] MEDS: ANCEF 5 IV ×2 (03:28→12:11)
[2025-02-20] MEDS: CARDENE 200 IV (03:28)
[2025-02-20 03:33] LABS: Hematocrit 35.3 % (39.0-52.0); Hemoglobin 12.4 g/dL (13.0-18.0); Mean Corp Hgb Conc. 35.1 g/dL (33.0-37.0); Mean Corpuscular Hgb 32.5 pg (27.0-31.0); Mean Corpuscular Volume 92.4 fL (80.0-94.0); Platelet Count 314 10^3/uL (130-400); Red Blood Cell Count 3.82 10^6/uL (4.70-6.10); Red Cell Dist. Width 14.6 % (11.5-14.5)
[2025-02-20 03:43] LABS: Blood Urea Nitrogen 27 mg/dl (9-20); Calcium 8.7 mg/dl (8.4-10.2); Carbon Dioxide 24 mmol/L (22-30); Chloride 110 mmol/L (98-107); Estimated Creatinine Clearance 41 ml/min; Glucose 95 mg/dl (70-99); Magnesium 2.5 mg/dl (1.6-2.3); Potassium 4.8 mmol/L (3.5-5.1); Sodium 138 mmol/L (135-145); eGFR 39.17
[2025-02-20] MEDS: ROXICODONE 5 MG PO ×5 (04:19→22:04)
[2025-02-20] MEDS: FLEXERIL 5 MG PO ×2 (04:19→12:15)
--- NOTE | 2025-02-20 05:04 | PTCARENOTE ---
Pt reassessed. Pt SR on the tele monitor. HR 70s. BP's now 120-150s/70s. CVP ~16. PAPs 30s/teens. CI > 2. Pt taking shallow breaths. POX 89-90%. Oxygen titrated up. PA aware. TT respiratory about midflow. CTx3 assessment unchanged. Tidaling remains
in mediastinal CT. Day catheter intact and draining yellow urine. All surgical sites stable. [place] and a-line maintained. All lines leveled, zeroed, and flushed. Dobutamine and cardene infusing. Glycemic protocol followed. Pt in increased pain -
see MAR for pain medication administration. Labs sent. EKG obtained.
[2025-02-20] MEDS: TYLENOL 1000 MG PO ×3 (05:08→21:10)
[2025-02-20] MEDS: NORVASC 2.5 MG PO (05:08)
[2025-02-20 05:12] LABS: Glucose - Point of Care 101 mg/dl (70-99)
[2025-02-20 05:58] LABS: Glucose - Point of Care 100 mg/dl (70-99)
--- NOTE | 2025-02-20 06:15 | PTCARENOTE ---
Pt POX 88-90% on 8 L NC. PA aware. Pt in pain. Shallow breathing. Respiratory at bedside. Pt started on 12 L midflow. Current POX 93-95%. CT assessment unchanged. Pain medication administered.
[2025-02-20 07:14] LABS: Glucose - Point of Care 89 mg/dl (70-99)
--- NOTE | 2025-02-20 07:43 | PTCARENOTE ---
Assumed care of patient from hotel night auditor RN, SHARIFO x 3. C/o pain. See f
--- NOTE | 2025-02-20 07:43 | PTCARENOTE ---
Assumed care of patient from production supervisor off shift RN, AAO x 3. C/o pain. See Mar for dosing. SR on monitor. Rt IJ cordis with swan at 43 cm, rt radial A line transducing. Lines leveled, recalibrated and flushed. Dobutamine, nitro and insulin infusing
per protocol. epicardial wire to back up of VVI 35. 12 L midflow oxygen pulse ox of 93%, shallow inspirations d/t pain. Chest tubes x 3 to - 20 cm suction. No air leak or crepitus noted. Abdomen soft and nontender, denies nausea. Day
maintained for critical I/O. Surgical sites well approximated. Plus 1 lower extremity edema appreciated. RT ulnar pulse palpable. Bilateral dp pulses palpable. Plan for day discussed.
--- NOTE | 2025-02-20 07:49 | W.PN.INTV ---
Today's Communication / Plan
Recommendations
Tolerated extubation
Wean dobutamine, Cardene and nitro
Monitor chest tube output
Wean insulin drip off
Likely transferred to telemetry later this afternoon-tire service technician will then sign off-call pulmonary if respiratory issues arise
Assessment
-
54-year-old former smoking male with a history of hypertension, alcohol use disorder recently admitted with hypertensive emergency with troponin elevation and noted to have significant CAD and underwent CABG-tire service technician consulted for postoperative
ventilator/critical care management 02/19/25
Coronary artery disease with preoperative preserved EF
Status post x CABG x 4 /left atrial appendage clip-Dr. Mcfarlane 02/19/25
Mild anemia-hemoglobin 12.8
Renal insufficiency-serum creatinine 1.7
Conditions present prior to admission:
CAD.
Hypertension.
Recent hypertensive urgency.
Alcohol use disorder.
Steatohepatitis.
History of gout.
History of thrombocytosis.
Testosterone deficiency. Splenectomy.
Plan
Tolerated extubation
Remains in ICU-on insulin drip
Wean FiO2
Encourage incentive spirometry
Increase activity
Aspiration precautions
Pulmonary artery catheter and arterial line will be removed
Pressors have been weaned
Continue to monitor chest tube output
Follow hemoglobin
Continue to follow platelet count and coags
Transfuse blood product as needed
CT surgery following chest tubes as well
Follow blood sugar
Insulin supplementation continues as needed
Early nutrition
Early mobilization
DVT prophylaxis
Outpatient pulmonary follow-up recommended-ongoing smoking cessation counseling, PFT, screen for yearly low-dose lung cancer screening CT
Patient will likely be transferred to telemetry phase later this afternoon-call pulmonary if respiratory issues arise
Reviewed the patient's pertinent medical records including radiographs, microbiology, laboratory evaluations, and discussion with primary team, and critical care nursing.
Diagnostic data:
Chest x-ray 02/08/25-NAD
CT chest 02/11/25-mild calcified atherosclerotic plaque in the coronary arteries, mild cardiomegaly, moderate mosaic pattern throughout both lower lobes secondary obstructive small airways disease
Echocardiogram 02/07/25-EF 55%, mild mitral regurgitation, moderate aortic stenosis-KATIE 1.4 cm
Cardiac catheterization 02/07/25-chronic total occlusion mid RCA, 70% lesion proximal LAD, 70% lesion proximal third large ramus intermedius and 70% lesion of AV groove distal circumflex, moderately elevated filling pressures with evidence of
diastolic dysfunction
Spirometry 02/18/25-FEV1 2.84-80%, FVC 3.3-73%
Subjective Dataa
Subjective Data
Date of Service:
Date of Service: February 20, 2025
Chief Complaint: Food Production Manager Follow Up, Pulmonary Follow Up and Vent Management Follow Up
Subjective:
tolerated extubation, pain overall controlled, no complaints of shortness of breath, no abdominal pain
Review of Systems
General: Other ( Per HPI)
Objective Data
Data Reviewed
Vital Signs / I&O / Oxygen:
Vital Signs
Temp Pulse Resp BP Pulse Ox
98.2 F 71 16 131/78 93
02/20/25 07:42 02/20/25 07:45 02/20/25 07:45 02/20/25 07:00 02/20/25 07:45
Intake and Output
02/19/25 02/20/25 02/21/25
06:59 06:59 06:59
Intake Total 1239.3 / 1239.3 56.9 / 56.9
Output Total 1720 / 1720 90 / 90
Balance -480.7 / -480.7 -33.1 / -33.1
SaO2 [CPAP] 93
SaO2 [SIMV] 94
SaO2 93
Nasal Cannula flow liters per 8
minute
Physical Exam
General: Respiratory Distress (n) and Comfortable
HEENT: Normocephalic, Anicteric and Moist Mucous Membranes
Cardiovascular: Regular Rhythm and Murmur
Respiratory: Wheeze (n), Crackles ( basilar), Rhonchi (n), Non-Labored Respirations, Accessory Resp Muscle Use (n) and Stridor (n)
GI: Soft, Non Distended and Non Tender
Neurology: Awake, Alert and No Motor Deficits
Skin: Warm, Good Color, Cyanosis (n), Jaundice (n) and Rash (n)
Labs/Micro/Reports
Lab Data
02/20/25 03:09
02/20/25 03:09
Laboratory Results
02/19/25 02/19/25
12:38 15:00
PT 15.8 H
INR 1.21
APTT 30.6
pH 7.37 Cancelled
pCO2 39 Cancelled
pO2 98 Cancelled
HCO3 22.5 Cancelled
O2 Delivery Level Vent Cancelled
--- NOTE | 2025-02-20 07:50 | W.PN.CT ---
Today's Communication / Plan
-
-pod #1
-pain issues this am with splinting. pOx was 95% on 3L; however, with pain pOx decreased to 88-90%. Currently, pOx 94% on 12L
-CI 3.87, CO 7.32. Drips: Dobut 1, Cardene is off after got Norvasc this am, Insulin, Nitro 5
-CT outputs: 2 meds 135/245, L pleur in 12/24 hrs
-wean off Dobut, then deline
-d/c insulin
-follow Cr (1.8-2.1 preop)
-avoid NSAIDs d/t CKD
-transition from Cardene to po Norvasc for radial graft
-current meds (ASA, PLavix, Amio, Zetia, Norvasc, Protonix). Holding BB while on Dobut. Intolerant of statins
-encourage IS, OOB
Assessment / Plan
-
- Multivessel Coronary Artery Disease with possible ACS event/NSTEMI- s/p CABG x4 In situ MC to LAD, Ao to left radial to ramus, Ao to RSVG to right acute marginal, Ao to RSVG to RPDA); RLE EVH; LAAE [45 mm clip] by Dr. Mcfarlane on 02/19/25, pod #1
- Intraop NIESHA: LVEF preop was approximately 40%, there were regional wall motion abnormalities on NIESHA preoperatively particular towards the anterior septum and inferior todd. Following surgery his EF did improve significantly to normal at 50% and
most of the regional wall motion abnormalities did improve. After chest closure, there was a period in which he became slightly hypotensive, suspected some entrainment of air into his grafts as there was some global LV dysfunction. Driving up of
the blood pressure with dobutamine as well as vasodilation with nitro as he has baseline very hypertensive yielded significant improvement back to normal EF of 45-50%.
- Hypertension
- Hyperlipidemia
- Recent hypertensive emergency
- Multivessel coronary artery disease
- Possible NSTEMI on admission last time
- History of splenectomy and exploratory laparotomy
- CKD, Cr 1.8-2.1 preop
- Former smoker
- Acute postop blood loss anemia
- Acute postop atelectasis
- Acute postop hypovolemia with subsequent hypervolemia
- Suspected acute postop pericarditis/ +rub
Discussed patient care with: Nursing and Care Team
Subjective
-
Date of Service: February 20, 2025
Objective Data
-
PT 15.8 Sec (11.4-14.6) H 02/19/25 12:38
INR 1.21 02/19/25 12:38
APTT 30.6 Sec (23.4-35.0) 02/19/25 12:38
Vital Signs
Vital Signs
Temp Pulse Resp BP Pulse Ox
98.7 F 67 12 115/71 94
02/20/25 01:00 02/20/25 02:05 02/20/25 02:05 02/20/25 02:00 02/20/25 02:05
CT Intake/Output/Weight
02/19/25 02/19/25 02/20/25
06:59 18:59 06:59
Intake Total 375.9 / 940.5 564.6 / 940.5
Output Total 810 / 1280 470 / 1280
Balance -434.1 / -339.5 94.6 / -339.5
SaO2: 94
Physical Exam
-
General: Awake and AOx3
Cardiovascular: Regular rate & rhythm, No Murmurs and Rub
Respiratory: Decreased Breath Sounds
Sternum: Stable
Incision: Clean, Dry and Intact
Extremities: No Edema
Abdomen: soft, nontender, nondistended, + decreased bowel sounds
Data Reviewed
-
Lab Results: Results Reviewed
Medications: Active Meds Reviewed
Chest X-Ray: Report Reviewed and Image Reviewed
ECG: Report Reviewed and Image Reviewed
[2025-02-20] MEDS: MAGNESIUM OXIDE PO (08:25)
[2025-02-20] MEDS: PLAVIX 75 MG PO (08:26)
[2025-02-20] MEDS: COLCHICINE 0.3 MG PO (08:26)
[2025-02-20] MEDS: SENOKOT-S 1 TABLET PO ×2 (08:26→20:14)
[2025-02-20] MEDS: PACERONE 200 MG PO ×3 (08:27→21:10)
[2025-02-20] MEDS: ZETIA 10 MG PO (08:27)
[2025-02-20] MEDS: NEURONTIN 100 MG PO ×3 (08:27→21:09)
[2025-02-20] MEDS: BACTROBAN 2% OINTMENT 1 APPLIC NASAL ×2 (08:27→20:14)
[2025-02-20] MEDS: LIDOCAINE 4% PATCH 1 PATCH TOPICAL (08:27)
[2025-02-20] MEDS: LOW STRENGTH ASPIRIN 81 MG PO (08:27)
[2025-02-20] MEDS: PROTONIX 40 MG PO (08:27)
[2025-02-20] MEDS: LOPRESSOR 12.5 MG PO (08:56)
[2025-02-20] MEDS: NORVASC PO (08:56)
[2025-02-20 09:00] LABS: Glucose - Point of Care 91 mg/dl (70-99)
--- NOTE | 2025-02-20 09:28 | PTCARENOTE ---
Lt pleural chest tube removed by CT LAND SURVEYOR ASSISTANT. Pt tolerated well, RT IJ swan then removed and cordis redressed. RT radial A line also removed at this time, Hemostasis achieved. Resting in bed, plan to transfer oob in one hour.
[2025-02-20 10:19] LABS: Glucose - Point of Care 87 mg/dl (70-99)
[2025-02-20] MEDS: NSS IV (11:36)
--- NOTE | 2025-02-20 12:00 | PTCARENOTE ---
Assist x 2 oob to chair. Tolerated dwell. No dumping noted in chest tubes. Pain well managed at present. VSS. Assessment unchanged from prior.
--- NOTE | 2025-02-20 12:36 | W.PN.ANS.POP ---
Anesthesia Post Operative
- Anesthesia Post Op Note
Vital Signs Stable-See Nursing Note: Yes
Airway Patent: Yes
Adequate Pain Control: Yes
Change in Mental Status: No
Current Postoperative Nausea & Vomiting: No
Anesthesia Complications: No
General Anesthetic Recall: No
Unplanned Admission: No
Post Op Hydration Adequate: Yes
--- NOTE | 2025-02-20 14:37 | PTCARENOTE ---
Tolerating sitting in the chair. However when pain starts coming back pt goes from comfortable to agony quickly.. Medicated as safely as able. Resting after. See MAR
--- NOTE | 2025-02-20 16:00 | PTCARENOTE ---
More awake this evening, tolerating sitting in the chair. Pain well managed at present time. VSS, Assessment otherwise unchanged from prior.
--- NOTE | 2025-02-20 16:26 | W.PN.CD ---
Today's Communication / Plan
-
Furosemide 40 mg IV x1 and monitor.
Restart home anti-hypertensives as BP dictates (carvedilol 12.5 mg BID).
Pain control.
Encourage incentive spirometry.
Ambulate.
Impression / Plan
-
Impression/Plan: 54-year-old male with history of familial hypercholesterolemia, hypertension, CKD and coronary artery disease admitted for elective CABG.
#Coronary artery disease:
-Chronic, progressive.
-s/p CABG x 4 (MC - LAD, Radial - Ramus, SVG - OM, SVG - PDA) with Dr. Mcfarlane, 02/19/25.
-Routine post operative management.
-Continue metoprolol, ezetimibe, clopidogrel, aspirin, amlodipine and amiodarone.
-Encourage incentive spirometry.
-Ambulate when appropriate.
-Pain/chest tube control per CT surgery.
-Furosemide 40 mg IV x1 and monitor.
#HTN:
-Chronic, mild to moderately elevated.
-Resume home antihypertensives as hemodynamics dictate.
#Familial hypercholesterolemia:
-Chronic, stable.
-Statin intolerant.
-Continue ezetimibe.
-Add [id number] at discharge.
-Goal LDL < 55.
CKD
-Chronic, stable.
-Creatinine = 2.0, baseline 1.8.
Subjective/Interval History:
Left chest tube removed this morning.
Weight up 2.7 kg from yesterday.
CI 3.45 at 8:43.
[place]-Pamela discontinued.
SaO2 = 95% on 5 LNC.
CXR shows low lung volumes.
DATA:
Intraoperative NIESHA, 02/19/2025:
CONCLUSIONS
Mild left ventricular systolic dysfunction with regional wall motion
abnormalities, EF 40%. Mild LVH. Stage I diastolic dysfunction.
Normal left ventricular size and function.
No thrombus or mass seen in the left atrial appendage.
Trace AI, thickened and mildly calcified leaflets.
The aorta has atheroma less than 5 mm and mild calcifications.
POST OPERATIVE FINDINGS
Status post CABG x 4, at the initial post pump separation, the left ventricular
function was normal with very minimal regional wall motion abnormalities, later
on, the patient developed severe anteroseptal and inferior wall motion
abnormality. Of note, the patient had significant amount of air in the LV
cavity post pump. Case discussed with the surgery team, dobutamine started
along with some nitroglycerin and raising the BP to 120 to 130 mmHg, all that
contributed to a significant improvement in the LV function. There was still a
residual mild anteroseptal and inferior wall motion abnormality. EF estimated
45 to 50%.
Cardiac catheterization, 02/10/2025:
CONCLUSIONS
1. 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
groove distal circumflex.
2. Moderately elevated filling pressures (LVEDP = 20 mmHg at 76.7 kg) with evidence of diastolic dysfunction (A wave to 35 mmHg).
Transthoracic echocardiogram, 02/07/2025:
Normal biventricular size and systolic function without regional wall motion
abnormality. LVEF 55%.
Mild mitral regurgitation.
Mild to moderate aortic stenosis (20/13 mmHg, KATIE 1.4 cm2).
Compared to prior echocardiogram on 07/18/2018, aortic sclerosis has progressed
and patient now has mild to moderate aortic stenosis.
Physical Exam
Vital Signs/Labs
Vital Signs
Temp Pulse Resp BP Pulse Ox
36.8 C 62 18 126/92 95
02/20/25 11:37 02/20/25 12:45 02/20/25 11:37 02/20/25 12:00 02/20/25 12:45
02/19/25 02/20/25 02/21/25
11:59 11:59 11:59
Actual Weight 75.5 kg 78.2 kg
02/20/25 03:09
02/20/25 03:09
PT 15.8 Sec (11.4-14.6) H 02/19/25 12:38
INR 1.21 02/19/25 12:38
APTT 30.6 Sec (23.4-35.0) 02/19/25 12:38
Magnesium 2.5 mg/dl (1.6-2.3) H 02/20/25 03:09
Physical Exam
Constitutional: No acute distress and Comfortable
EENT: Anicteric and Moist mucous membranes
Cardiovascular: Rhythm & rate is regular, Pedal edema is absent, JVD pressure is normal, S1S2 is normal and Murmur/rub/gallop absent
Respiratory: Respiratory effort normal, Lungs clear to auscul., Wheeze Absent, Crackles Absent and Rhonchi Absent
GI: Soft, Distention absent, Flat, Non tender and Normal bowel sounds
Neuro/Psych: AO x 3
Data Reviewed
-
Date of Service: February 20, 2025
Medical Decision Making: Reviewed Test Results, Independent Historian Assessment and Test Interpretation
EKG: Tracing Personally Visualized and interpreted and Report Reviewed by me
Echo: Report Reviewed by me
X-Ray/CT/US/MRI/NUC/PET: Image Personally Visualized and interpreted and Report Reviewed by me
Medical Tests (PFT, Pathology etc): Image Personally Visualized and interpreted, Report Reviewed by me and Discussed with Physician
Labs: Labs Reviewed by me
Old Records: Reviewed
[2025-02-20] MEDS: COREG 12.5 MG PO (20:14)
[2025-02-20] MEDS: MAGNESIUM OXIDE 500 MG PO (20:14)
--- NOTE | 2025-02-20 20:59 | PTCARENOTE ---
Assumed care of pt from dayshift RN. Walking rounds completed. Pt is AAOx3. Appropriate. STEEL. Resting in the chair at this time. SR on the tele monitor. HR 60s. BP stable. Trace LE edema. Left ulnar pulse palpable. Right radial and B/L DP pulses
palpable. Pt on 2 L NC. POX 93%. Mediastinal CTx2 to -20 suction, no airleak noted at this time, and output WNL. Deep breathing and IS encouraged. Abdomen soft/nontender. +BS. No nausea. Day catheter in place and draining yellow urine. All
surgical sites stable. Right IJ cordis and PIV x1 intact. See worklist for full nursing assessment and interventions. Call akbar within reach.
[2025-02-21] VITALS (32 sets, daily range): BP systolic 104–146; BP diastolic 59–99; PULSE 85; O2SAT 88–90; BMI 26.9
--- NOTE | 2025-02-21 00:09 | PTCARENOTE ---
No acute change in assessment. Pt is SR on the tele monitor. HR 60s. Temporary epicardial v-wire intact and set to backup rate of 30. BP stable. Pt on 2 L NC. POX 93%. Mediastinal CTx2 assessment unchanged. Day catheter intact and draining yellow
urine. All surgical sites stable. Pt resting in the chair at this time. Call akbar within reach.
[2025-02-21] MEDS: ROXICODONE 5 MG PO ×5 (02:12→17:53)
[2025-02-21] MEDS: DILAUDID 0.5 MG IV ×2 (02:12→20:57)
--- NOTE | 2025-02-21 03:22 | W.PN.CT ---
Addendum entered and electronically signed by INGRID Silverman 02/21/25 18:43:
CDI QUERY RESPONSE:
VINNIE on CKD (creat 1.7>2.0)
Addendum entered and electronically signed by INGRID Silverman 02/21/25 18:41:
CDI QUERY RESPONSE:
Acute hypoxic respiratory failure
Original Note:
Today's Communication / Plan
-
-pod #2
-no issues overnight, less pain after pleur CT came out
-follow Cr (1.8-2.1 preop)
-avoid NSAIDs d/t CKD
-current meds (ASA, PLavix, Amio, Coreg 12.5 bid, Colchicine 0.3 qd, Zetia, Norvasc, Protonix). Intolerant of statins
-encourage IS, OOB
Assessment / Plan
-
- Multivessel Coronary Artery Disease with possible ACS event/NSTEMI- s/p CABG x4 In situ MC to LAD, Ao to left radial to ramus, Ao to RSVG to right acute marginal, Ao to RSVG to RPDA); RLE EVH; LAAE [45 mm clip] by Dr. Mcfarlane on 02/19/25, pod #2
- Intraop NIESHA: LVEF preop was approximately 40%, there were regional wall motion abnormalities on NIESHA preoperatively particular towards the anterior septum and inferior todd. Following surgery his EF did improve significantly to normal at 50% and
most of the regional wall motion abnormalities did improve. After chest closure, there was a period in which he became slightly hypotensive, suspected some entrainment of air into his grafts as there was some global LV dysfunction. Driving up of
the blood pressure with dobutamine as well as vasodilation with nitro as he has baseline very hypertensive yielded significant improvement back to normal EF of 45-50%.
- Hypertension
- Hyperlipidemia
- Recent hypertensive emergency
- Multivessel coronary artery disease
- Possible NSTEMI on admission last time
- History of splenectomy and exploratory laparotomy
- CKD, Cr 1.8-2.1 preop
- Former smoker
- Acute postop blood loss anemia
- Acute postop atelectasis
- Acute postop hypovolemia with subsequent hypervolemia
- Suspected acute postop pericarditis/ +rub
Discussed patient care with: Nursing and Care Team
Subjective
-
Date of Service: February 21, 2025
Objective Data
-
PT 15.8 Sec (11.4-14.6) H 02/19/25 12:38
INR 1.21 02/19/25 12:38
APTT 30.6 Sec (23.4-35.0) 02/19/25 12:38
Vital Signs
Vital Signs
Temp Pulse Resp BP Pulse Ox
98 F 65 16 119/73 91
02/21/25 03:00 02/21/25 03:00 02/21/25 03:00 02/21/25 03:00 02/21/25 03:00
CT Intake/Output/Weight
02/20/25 02/20/25 02/21/25
06:59 18:59 06:59
Intake Total 863.4 / 1239.3 1390.9 / 1470.9 80 / 1470.9
Output Total 910 / 1720 610 / 1115 505 / 1115
Balance -46.6 / -480.7 780.9 / 355.9 -425 / 355.9
SaO2: 91
Physical Exam
-
General: Awake and AOx3
Cardiovascular: Regular rate & rhythm, No Murmurs and Rub
Respiratory: Rales and Decreased Breath Sounds
Sternum: Stable
Incision: Clean, Dry and Intact
Extremities: Other (trace edema b/l)
Abdomen: soft, nondistended, nontender, + bowel sounds
Data Reviewed
-
Lab Results: Results Reviewed
Medications: Active Meds Reviewed
Chest X-Ray: Report Reviewed and Image Reviewed
ECG: Report Reviewed and Image Reviewed
[2025-02-21 03:24] LABS: Hematocrit 33.7 % (39.0-52.0); Hemoglobin 11.6 g/dL (13.0-18.0); Mean Corp Hgb Conc. 34.4 g/dL (33.0-37.0); Mean Corpuscular Volume 93.1 fL (80.0-94.0); Mean Platelet Volume 11.2 fL (7.4-10.4); Platelet Count 302 10^3/uL (130-400); Red Blood Cell Count 3.62 10^6/uL (4.70-6.10); Red Cell Dist. Width 14.5 % (11.5-14.5)
--- NOTE | 2025-02-21 03:39 | PTCARENOTE ---
No change in assessment. Pt is SR on the tele monitor. HR 60s. BP stable. Pt on 2 L NC. POX 92%. Mediastinal CTx2 assessment unchanged. Day catheter intact and draining yellow urine. All surgical site stable. See MAR for pain medication
administration. Labs sent. Pt repositioned in the chair. Call akbar within reach.
[2025-02-21 03:41] LABS: Blood Urea Nitrogen 35 mg/dl (9-20); Calcium 8.8 mg/dl (8.4-10.2); Carbon Dioxide 24 mmol/L (22-30); Chloride 102 mmol/L (98-107); Estimated Creatinine Clearance 41 ml/min; Glucose 104 mg/dl (70-99); Magnesium 2.3 mg/dl (1.6-2.3); Sodium 134 mmol/L (135-145); eGFR 39.17
[2025-02-21] MEDS: TYLENOL 1000 MG PO ×2 (05:41→13:56)
--- NOTE | 2025-02-21 07:57 | W.PN.CD ---
Today's Communication / Plan
-
Furosemide 40 mg x1 and monitor.
Incentive spirometry.
Abmulate.
Agree with amiodarone bolus/gtt.
Consider therapeutic anticoagulation if AF does not resolve in 24 hours (in anticipation of DCCV).
Impression / Plan
-
Impression/Plan: 54-year-old male with history of familial hypercholesterolemia, hypertension, CKD and coronary artery disease admitted for elective CABG.
#Coronary artery disease:
-Chronic, progressive.
-s/p CABG x 4 (MC - LAD, Radial - Ramus, SVG - OM, SVG - PDA) with Dr. Mcfarlane, 02/19/25.
-Routine post operative management.
-Continue carvedilol, ezetimibe, clopidogrel, aspirin, amlodipine and amiodarone.
-Encourage incentive spirometry.
-Ambulate when appropriate.
-Pain/chest tube control per CT surgery.
-Furosemide 40 mg IV x1 and monitor.
#Perioperative atrial fibrillation
-New diagnosis.
-Rate control with carvedilol. CTS has ordered amiodarone bolus/gtt.
-CHADS2-Vasc = 2 (HTN, Vascular Disease).
-S/P LAAE (#45 Atriclip).
-Hold anticoagulation for the moment, but restart if he remains in AF for > 24 hours.
-If AF does not resolve chemically, we will plan for DCCV. Diuresis will assist with rhythm control.
#HTN:
-Chronic, mild to moderately elevated.
-Continue carvedilol 12.5 mg BID.
#Familial hypercholesterolemia:
-Chronic, stable.
-Statin intolerant.
-Continue ezetimibe.
-Add PCSK9I at discharge.
-Goal LDL < 55.
CKD
-Chronic, stable.
-Creatinine = 2.0, baseline 1.8.
Subjective/Interval History:
Lapsed into rate controlled AF this morning.
Weight is up 1.9 kg.
Metoprolol replaced with carvedilol.
BP reasonable with pain control and carvedilol.
Creatinine stable at 2.0.
DATA:
Intraoperative NIESHA, 02/19/2025:
CONCLUSIONS
Mild left ventricular systolic dysfunction with regional wall motion
abnormalities, EF 40%. Mild LVH. Stage I diastolic dysfunction.
Normal left ventricular size and function.
No thrombus or mass seen in the left atrial appendage.
Trace AI, thickened and mildly calcified leaflets.
The aorta has atheroma less than 5 mm and mild calcifications.
POST OPERATIVE FINDINGS
Status post CABG x 4, at the initial post pump separation, the left ventricular
function was normal with very minimal regional wall motion abnormalities, later
on, the patient developed severe anteroseptal and inferior wall motion
abnormality. Of note, the patient had significant amount of air in the LV
cavity post pump. Case discussed with the surgery team, dobutamine started
along with some nitroglycerin and raising the BP to 120 to 130 mmHg, all that
contributed to a significant improvement in the LV function. There was still a
residual mild anteroseptal and inferior wall motion abnormality. EF estimated
45 to 50%.
Cardiac catheterization, 02/10/2025:
CONCLUSIONS
1. 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
groove distal circumflex.
2. Moderately elevated filling pressures (LVEDP = 20 mmHg at 76.7 kg) with evidence of diastolic dysfunction (A wave to 35 mmHg).
Transthoracic echocardiogram, 02/07/2025:
Normal biventricular size and systolic function without regional wall motion
abnormality. LVEF 55%.
Mild mitral regurgitation.
Mild to moderate aortic stenosis (20/13 mmHg, KATIE 1.4 cm2).
Compared to prior echocardiogram on 07/18/2018, aortic sclerosis has progressed
and patient now has mild to moderate aortic stenosis.
Surgery, 02/19/2025:
Procedure(s) Performed:
1. Standard sternotomy with aortic and right atrial cannulation
2. Internal mammary artery harvesting, left
3. Multi arterial coronary artery bypass grafting x 4 (In situ MC to LAD, Ao to left radial to ramus, Ao to RSVG to right acute marginal, Ao to RSVG to RPDA)
4. Open left radial artery harvesting
5. Endoscopic vein harvesting of right lower extremity
6. Left atrial appendage exclusion [45 mm clip, serial #[id number]]
7. Transesophageal echocardiography
Physical Exam
Vital Signs/Labs
Vital Signs
Temp Pulse Resp BP Pulse Ox
36.6 C 61 16 126/74 92
02/21/25 03:00 02/21/25 07:00 02/21/25 03:00 02/21/25 07:00 02/21/25 05:00
02/19/25 02/20/25 02/21/25
11:59 11:59 11:59
Actual Weight 75.5 kg 78.2 kg 80.1 kg
02/21/25 03:10
02/21/25 03:10
PT 15.8 Sec (11.4-14.6) H 02/19/25 12:38
INR 1.21 02/19/25 12:38
APTT 30.6 Sec (23.4-35.0) 02/19/25 12:38
Magnesium 2.3 mg/dl (1.6-2.3) 02/21/25 03:10
Physical Exam
Constitutional: No acute distress and Comfortable
EENT: Anicteric and Moist mucous membranes
Cardiovascular: Rhythm & rate is regular, Pedal edema is absent, JVD pressure is normal, S1S2 is normal and Murmur/rub/gallop absent
Respiratory: Respiratory effort normal, Lungs clear to auscul., Wheeze Absent, Crackles Absent and Rhonchi Absent
GI: Soft, Distention absent, Flat, Non tender and Normal bowel sounds
Neuro/Psych: AO x 3
Data Reviewed
-
Date of Service: February 21, 2025
Medical Decision Making: Reviewed Test Results, Independent Historian Assessment and Test Interpretation
EKG: Tracing Personally Visualized and interpreted and Report Reviewed by me
Echo: Report Reviewed by me
X-Ray/CT/US/MRI/NUC/PET: Image Personally Visualized and interpreted and Report Reviewed by me
Medical Tests (PFT, Pathology etc): Report Reviewed by me
Labs: Labs Reviewed by me
Old Records: Reviewed
--- NOTE | 2025-02-21 08:00 | PTCARENOTE ---
Assumed care of patient from caustic cresylate shift superintendent RN. AAO x 3 sitting up in the chair. Pt states less pain today, feels better. VSS. SR on monitor. Epicardial wire to back up of VVI 30, no pacing noted at present.. 2 L NC pulse ox of 94%, IS
encouraged. Abdomen soft and non tender. Chest tubes x 2 to - 20 cm suction. No air leak or crepitus noted. Day draining yue urine. Surgical sites c,d,i. Plan for day discussed.
[2025-02-21] MEDS: NORVASC 2.5 MG PO (08:30)
[2025-02-21] MEDS: PACERONE 200 MG PO ×2 (08:30→16:16)
[2025-02-21] MEDS: LOW STRENGTH ASPIRIN 81 MG PO (08:30)
[2025-02-21] MEDS: PROTONIX 40 MG PO (08:30)
[2025-02-21] MEDS: COREG 12.5 MG PO (08:30)
[2025-02-21] MEDS: PLAVIX 75 MG PO (08:30)
[2025-02-21] MEDS: COLCHICINE 0.3 MG PO (08:30)
[2025-02-21] MEDS: SENOKOT-S 1 TABLET PO ×2 (08:31→20:57)
[2025-02-21] MEDS: BACTROBAN 2% OINTMENT 1 APPLIC NASAL ×2 (08:31→20:55)
[2025-02-21] MEDS: ZETIA 10 MG PO (08:31)
[2025-02-21] MEDS: NEURONTIN 100 MG PO ×2 (08:31→16:16)
[2025-02-21] MEDS: LIDOCAINE 4% PATCH 1 PATCH TOPICAL (08:31)
[2025-02-21] MEDS: MAGNESIUM OXIDE 500 MG PO ×2 (08:31→20:56)
--- NOTE | 2025-02-21 09:29 | PTCARENOTE ---
Afib noted on monitor. VSS, pt asymptomatic. CT COMMERCIAL ENGINEER made aware
[2025-02-21] MEDS: CORDARONE 103 MG IV (09:52)
[2025-02-21] MEDS: CORDARONE 518 MG IV (09:53)
[2025-02-21] MEDS: DILAUDID 0.25 MG IV (10:02)
--- NOTE | 2025-02-21 10:13 | W.PN.UPDATE ---
Update Note
Progress Note Update
No pacing noted since surgery, no dysrhythmias. Bipolar V-wire removed without difficulty @ 0800.
[2025-02-21] MEDS: FLEXERIL 5 MG PO (10:45)
--- NOTE | 2025-02-21 11:17 | PTCARENOTE ---
Mediastinal chest tubes removed by RN, patient tolerated w/o issue. Day cath then removed, pt provided with urinal, and instructed on collecting specimen. Continues to c/o pain. Medicated as safely possible. VSS. Remains in A fib. Will
monitor.
--- NOTE | 2025-02-21 11:37 | PTCARENOTE ---
Converted to NSS. VSS. Will continue to monitor
--- NOTE | 2025-02-21 12:09 | PN.CDI ---
CDI
- -
CDI:
Physician Documentation Request
Admit Date: 02/19/25 05:[address] Surgery,
Patient admitted for CAD.
02/20 PCN: 'Pt POX 88-90% on 8 L NC. PA aware. Pt in pain. Shallow breathing. Respiratory at bedside. Pt started on 12 L midflow. Current POX 93-95%.'
02/20 CT PN: 'pain issues this am with splinting. pOx was 95% on 3L; however, with pain pOx decreased to 88-90%. Currently, pOx 94% on 12L'
Clarify which of the following accurately represents the patient's respiratory status:
Acute hypoxic respiratory failure
Hypoxia
Other
Additional information for Respiratory Failure:
Recognized criteria for Respiratory Failure (Source: [facility] Hospitalist Aug 2013)
ABGs: (1 or more) Symptoms Please indicate type if known
1. p)2 <60 or RA SPO2 <91% on RA 1. Tachypnea, SOB, dyspnea Hypoxic
2. pCO2 50 and pH <7.35 2. Use of accessory muscles Hypercapnic
3. pO2 decrease of pCO2 increase by 3. Pallor or cyanosis Hypoxic and Hypercapnic
10 mmHg from baseline if known 4. Anxiety or restlessness Unable to determine
5. Unable to speak in full sentences
Supplemental O2 of > 40% (5LPM) Intubation is not required
Use of terms such as suspected, likely, concern for, or probable (associated with a specific diagnosis that is being evaluated, monitored, or treated as if it exists) are acceptable and can be coded in the inpatient setting, when documented at the
time of discharge.
Thank you,
Lolis Vance RN, BSN
CDI Specialist
Available via [place] text
Please use your independent medical judgment in providing your response.
--- NOTE | 2025-02-21 12:15 | PN.CDI ---
CDI
- -
CDI:
Physician Documentation Request
Admit Date: 02/19/25 05:[address] Surgery,
Patient admitted for CAD.
02/20 CT PN: 'follow Cr (1.8-2.1 preop)'
Laboratory Tests
02/19/25 02/20/25 02/21/25
12:38 03:09 03:10
Creatinine 1.7 H 2.0 H 2.0 H
Clarify which of the following accurately represents the patient's renal status:
VINNIE
Elevated creatinine
Other
Criteria for VINNIE*
1 Increase in serum creatinine by > or = to 0.3 mg/dL (> or = to 26.5 micromol/L) within 48 hours, OR
2 Increase in serum creatinine to > or = to 1.5 times baseline, which is known or presumed to have occurred within 7 days, OR
3 Urine volume < 0.5 nL/kg/hour for six hours
Stages of Chronic Kidney Disease*
Level Description GFR
G1 Normal or High >90
G2 Mildly decreased 60-89
G3a Mildly to moderately decreased 45-59
G3b Moderately to severely decreased 30-44
G4 Severely decreased 15-29
G5 Kidney failure <15
Use of terms such as suspected, likely, concern for, or probable (associated with a specific diagnosis that is being evaluated, monitored, or treated as if it exists) are acceptable and can be coded in the inpatient setting, when documented at the
time of discharge.
Thank you,
Lolis Vance RN, BSN
CDI Specialist
Available via [place] text
Please use your independent medical judgment in providing your response.
*Source: Kidney Disease: Improving Global Outcomes (KDIGO) 2012
--- NOTE | 2025-02-21 12:38 | CM ---
CM following for DC planning needs.
Met w/ patient, mother and father at bedside. Pt. feels well, POD#2.
Reviewed DC plan for home w/ CT Transitional Care RN. Mother/father to assist at DC.
Reviewed post op MD appointments as well.
Plan for home w/ CT Transitional Care RN.
CM to cont. to follow for continued support and DC planning needs.
--- NOTE | 2025-02-21 12:58 | PTCARENOTE ---
Addendum entered by Juliane Ya RN 02/21/25 13:12:
Amio drip discontinued at this time
Original Note:
PT HR slowed down to 29 with conversion to NSR . Asymptomatic. VSS. CT PRESS BRAKE OPERATOR Aware
[2025-02-21] MEDS: NSS 500 IV (15:12)
--- NOTE | 2025-02-21 17:01 | PTCARENOTE ---
Ambulated in hallway with RN
--- NOTE | 2025-02-21 17:04 | PTCARENOTE ---
Ambulated in hallway with RN. Gait steady. Room air 88%, placed back on 2 L. SR on monitor 60's. VSS. Assessment otherwise unchanged.
--- NOTE | 2025-02-21 17:36 | PTCARENOTE ---
Denies urge to void post alexandre removal. Bladder scanned for 300. Discussed with CT ACCOUNTING MACHINE SERVICER. PO intake encouraged.
[2025-02-21] MEDS: COREG PO (20:56)
--- NOTE | 2025-02-21 21:00 | PTCARENOTE ---
Report received from EDE Cardozo. Walking rounds done. Pt sitting in chair. Awake, alert, oriented x 4. Speech clear. Moves all extremities equally x 4.
Sats on 2L are 91%. O2 increased to 3 L/NC. BBS present. Decreased B Bases. C/O pain to L upper back. Dilaudid 0.5 mg IV given at 195. Audible heart tones. Pt noted to be in brief A, rate 70 bpm, with brief conversion pause to SB-SR. Conversion
pause followed by HR in the 30-40's and increasing to 50-60's. Pt sitting in chair, awake during conversion, and denied lightheadedness and dizziness. PA aware. Carvedilol and amiodarone held per [facility] [place]. Normotensive. For pulse and wound
assessments, see flowsheets. Belly soft, nontender. Hypoactive bs x 4. Pt voided clear, yue urine into urinal in BR, 500 mls. Pt helped to bed. CHG bath given. IS done with pt. Peak 750 mls. Ongoing plan of care.
[2025-02-22] VITALS (11 sets, daily range): BP systolic 112–163; BP diastolic 72–97; PULSE 65; O2SAT 90–92; BMI 27.0
[2025-02-22] MEDS: TYLENOL 1000 MG PO ×4 (00:10→21:21)
[2025-02-22] MEDS: NEURONTIN 100 MG PO ×4 (00:10→21:21)
--- NOTE | 2025-02-22 00:10 | PTCARENOTE ---
Roxicodone 5 mg po given for moderate c/o pain to L upper back. VS done.
[2025-02-22] MEDS: ROXICODONE 5 MG PO ×4 (00:15→15:24)
[2025-02-22 03:41] LABS: Hematocrit 31.6 % (39.0-52.0); Hemoglobin 10.7 g/dL (13.0-18.0); Mean Corp Hgb Conc. 33.9 g/dL (33.0-37.0); Mean Corpuscular Hgb 31.4 pg (27.0-31.0); Mean Corpuscular Volume 92.7 fL (80.0-94.0); Mean Platelet Volume 11.7 fL (7.4-10.4); Platelet Count 280 10^3/uL (130-400); Red Blood Cell Count 3.41 10^6/uL (4.70-6.10); Red Cell Dist. Width 14.2 % (11.5-14.5); White Blood Cell Count 16.2 10^3/uL (4.8-10.8)
--- NOTE | 2025-02-22 03:45 | PTCARENOTE ---
Pt assisted to BR to void large amount of clear, yellow urine. Pt then helped to standing scale, weighed. Assisted back to bed. Labs drawn and sent. VS done. Pt routinely doing IS and CDB exercises. Sats on 3 L are 92%, Pt noted to be in brief AF,
rate 78-80's with 1.5 second conversion pause to SB, initial rate 43-SB, increasing to 50's-SB.
[2025-02-22 04:12] LABS: Blood Urea Nitrogen 36 mg/dl (9-20); Calcium 8.5 mg/dl (8.4-10.2); Carbon Dioxide 23 mmol/L (22-30); Chloride 101 mmol/L (98-107); Estimated Creatinine Clearance 41 ml/min; Glucose 91 mg/dl (70-99); Magnesium 2.1 mg/dl (1.6-2.3); Potassium 4.4 mmol/L (3.5-5.1); Sodium 133 mmol/L (135-145); eGFR 39.17
[2025-02-22] MEDS: DILAUDID 0.25 MG IV (06:16)
--- NOTE | 2025-02-22 06:29 | W.PN.CT ---
Addendum entered and electronically signed by Rivera Hadley MD 02/22/25 09:33:
I saw and examined the patient.
The PA's note was reviewed and I agree with the note.
Comment:
POD#3 s/p CABG x 4, ELAA
Intermittent AF yesterday, conversion pauses for 3sec overngiht, amio gtt D/C'd, BB held - currently in NSR in 60s
Continue to hold BB and amio
Creat 2.0 - UO 500+ overnight (baseline creat 1.8-1.9)
OOB/IS/ambulate
CXR ok - minor left basilar atelectasis
Original Note:
Today's Communication / Plan
-
-pod #3
-in and out of a-fib on 02/21 with upto 3 sec pauses, asymptomatic. Amio drip stopped d/t bradycardia. Put po Amio and BB on hold
-remained in nsr overnight. No epicardial pacing wires (dcd 02/21)
-Cr is 2.0 (2.0 past 2 days, baseline 1.8-1.9)
-monitor rhythm. Discuss with Cardiology
-current meds (ASA, Plavix, Norvasc for radial graft and htn, Zetia, Colchicine, Protonix). Coreg and Amio are held
-wt is up from 166 preop to 177 lbs today-diurese
-encourage IS, OOB
Assessment / Plan
-
- Multivessel Coronary Artery Disease with possible ACS event/NSTEMI- s/p CABG x4 In situ MC to LAD, Ao to left radial to ramus, Ao to RSVG to right acute marginal, Ao to RSVG to RPDA); RLE EVH; LAAE [45 mm clip] by Dr. Mcfarlane on 02/19/25, pod #3
- Intraop NIESHA: LVEF preop was approximately 40%, there were regional wall motion abnormalities on NIESHA preoperatively particular towards the anterior septum and inferior todd. Following surgery his EF did improve significantly to normal at 50% and
most of the regional wall motion abnormalities did improve. After chest closure, there was a period in which he became slightly hypotensive, suspected some entrainment of air into his grafts as there was some global LV dysfunction. Driving up of
the blood pressure with dobutamine as well as vasodilation with nitro as he has baseline very hypertensive yielded significant improvement back to normal EF of 45-50%.
- Hypertension
- Hyperlipidemia
- Recent hypertensive emergency
- Multivessel coronary artery disease
- Possible NSTEMI on admission last time
- History of splenectomy and exploratory laparotomy
- CKD, Cr 1.8-2.1 preop
- Former smoker
- Acute postop blood loss anemia
- Acute postop atelectasis
- Acute postop hypovolemia with subsequent hypervolemia
- Suspected acute postop pericarditis/ +rub
- Acute postop paroxysmal a-fib on 02/21 with upto 3 sec conversion pauses
Discussed patient care with: Nursing and Care Team
Subjective
-
Date of Service: February 22, 2025
Objective Data
-
Lab Results
02/22/25 03:30
02/22/25 03:30
PT 15.8 Sec (11.4-14.6) H 02/19/25 12:38
INR 1.21 02/19/25 12:38
APTT 30.6 Sec (23.4-35.0) 02/19/25 12:38
Vital Signs
Vital Signs
Temp Pulse Resp BP Pulse Ox
97.9 F 78 16 131/82 92
02/22/25 03:33 02/22/25 03:33 02/22/25 03:33 02/22/25 03:33 02/22/25 03:[address]
CT Intake/Output/Weight
02/21/25 02/21/25 02/22/25
06:59 18:59 06:59
Intake Total 110 / 1500.9 1280 / 1870 590 / 1870
Output Total 660 / 1270 220 / 720 500 / 720
Balance -550 / 230.9 1060 / 1150 90 / 1150
SaO2: 92
Physical Exam
-
General: Awake and AOx3
Cardiovascular: Regular rate & rhythm, No Murmurs and Rub
Respiratory: Rales (at bases) and Decreased Breath Sounds
Sternum: Stable
Incision: Dry and Intact
Extremities: Other (trace edema b/l, 2+ DPs)
Abdomen: soft, nontender, nondistended, na nasea, no BM yet
Data Reviewed
-
Lab Results: Results Reviewed
Medications: Active Meds Reviewed
Chest X-Ray: Report Reviewed and Image Reviewed
ECG: Report Reviewed and Image Reviewed
--- NOTE | 2025-02-22 06:30 | PTCARENOTE ---
Pt helped to BR this am to void clear, yue urine. Pt then helped to recliner chair. Remains in SR. On 3L/NC. Roxicodone 5 mg po and Dilaudid 0.25 mg IV given for upper L back pain.
[2025-02-22] MEDS: LIDOCAINE 4% PATCH 1 PATCH TOPICAL (07:40)
[2025-02-22] MEDS: BACTROBAN 2% OINTMENT 1 APPLIC NASAL ×2 (07:40→20:45)
[2025-02-22] MEDS: NORVASC 5 MG PO (07:41)
[2025-02-22] MEDS: COLCHICINE 0.3 MG PO (07:41)
[2025-02-22] MEDS: FLEXERIL 5 MG PO ×2 (07:41→21:22)
[2025-02-22] MEDS: PROTONIX 40 MG PO (07:41)
[2025-02-22] MEDS: PLAVIX 75 MG PO (07:41)
[2025-02-22] MEDS: ZETIA 10 MG PO (07:41)
[2025-02-22] MEDS: LOW STRENGTH ASPIRIN 81 MG PO (07:41)
[2025-02-22] MEDS: SENOKOT-S 1 TABLET PO ×2 (07:41→20:45)
[2025-02-22] MEDS: MAGNESIUM OXIDE 500 MG PO ×2 (07:41→20:45)
--- NOTE | 2025-02-22 08:27 | PTCARENOTE ---
Assumed care of patient from belt sander RN. AAO x 3 sitting up in the chair. SR on monitor. 2 L NC 95%. IS to 750. Denies cough or sputum. Abdomen soft and non tender, appetite good. Voiding w/o issue. Surgical sites c,d,i, well
approximated. Pulses palpable. Plan for day discussed.
--- NOTE | 2025-02-22 11:27 | PTCARENOTE ---
Ambulated in hallway on room air with RN. Ambulated approx 250 feet gait steady, some SOB noted upon return to room. Pulse ox resting after 88%, placed back on 1 L with pulse ox of 92%. IS highly encouraged. Resting after. VSS. Assessment
otherwise unchanged from prior.
--- NOTE | 2025-02-22 11:52 | PTCARENOTE ---
Transfused with 1 unit PRBC's w/o issue. Pt ambulating at christianne in hallway. In better spirits at present after talk with DR Hadley r/marisa why he should stay in hospital 1 more day. VSS. Assessment otherwise unchanged from prior.
[2025-02-22] MEDS: NSS IV (12:51)
--- NOTE | 2025-02-22 16:22 | PTCARENOTE ---
C/o continued pain after scheduled tylenol and 5 mg isatu given. Pt requesting dilaudid. Pt informed dilauded had been discontinued. Pt states but the oxy 'doesnt do shit'. Discussed with CT PA, additional 5 mg isatu ordered and administered.
Will monitor. VSS and assessment otherwise unchanged from prior.
--- NOTE | 2025-02-22 20:00 | PTCARENOTE ---
Assumed care of the patient from day shift. Patient OOB to chair. AOx3, c/o mild-moderate pain. SR rate 70's on the monitor, no ectopy noted; HRR, no rub auscultated, trace LE edema, pulses palpable throughout. Pt with audible expiratory wheezes,
had removed NC prior to RN returning to room after safety rounds; satting 84% on RA; patient tapered up to 6LNC with SpO2 of 94%. CVPA aware, ordered Lasix. Instructed the patient to leave NC in place for oxygenation, patient indicated
understanding. Lungs diminished throughout, expiratory wheeze B/L and poor coughing effort with increased WOB after activity. IS encouraged, pt demonstrated correct use. Normoactive BS, passing gas, no nausea. Voiding in the toilet, urinal provided
for output measurement, no difficulty. OOB with min assist. All surgical sites CDI. Fall precautions discussed at length as well as sternal precautions. Patient needs reinforcement. RIJ Cordis, PIVx1. Assessment of needs ongoing. Call akbar within
reach.
[2025-02-22] MEDS: LASIX 40 MG IV (21:53)
[2025-02-23] VITALS (8 sets, daily range): BP systolic 123–138; BP diastolic 74–94; BMI 25.6
--- NOTE | 2025-02-23 | PTCARENOTE ---
Patient up with assistance to void in the bathroom using urinal. UOP responding well to IV Lasix dosage. Patient sleeping between care, states he is comfortable at this time, call akbar within reach, verbalized understanding of its use to call for
assistance as needed.
--- NOTE | 2025-02-23 04:00 | PTCARENOTE ---
Patient sleeping between care, up ad christianne. Reports pain well controlled at this time.
[2025-02-23 04:04] LABS: Hematocrit 32.1 % (39.0-52.0); Mean Corp Hgb Conc. 34.3 g/dL (33.0-37.0); Mean Corpuscular Hgb 31.5 pg (27.0-31.0); Mean Platelet Volume 11.8 fL (7.4-10.4); Platelet Count 345 10^3/uL (130-400); Red Blood Cell Count 3.49 10^6/uL (4.70-6.10); White Blood Cell Count 12.5 10^3/uL (4.8-10.8)
[2025-02-23 04:19] LABS: Blood Urea Nitrogen 27 mg/dl (9-20); Calcium 8.7 mg/dl (8.4-10.2); Carbon Dioxide 30 mmol/L (22-30); Chloride 100 mmol/L (98-107); Estimated Creatinine Clearance 46 ml/min; Glucose 92 mg/dl (70-99); Magnesium 1.9 mg/dl (1.6-2.3); Potassium 4.1 mmol/L (3.5-5.1); Sodium 137 mmol/L (135-145); eGFR 44.45
[2025-02-23] MEDS: TYLENOL 1000 MG PO ×2 (05:07→13:42)
--- NOTE | 2025-02-23 05:35 | W.PN.CT ---
Addendum entered and electronically signed by Rivera Hadley MD 02/23/25 09:31:
I saw and examined the patient.
The PA's note was reviewed and I agree with the note.
Comment:
POD#4 s/p CABG x 4, ELAA
AF on 02/21 - NSR since 02/22 - 3sec conversion pauses - amio and BB currently held
Pt. with increased O2 requirement (?) - not documented - pt. currently on RA
Creat 1.8 (baseline) - continue diuresis
ASA/plavix/norvasc
D/C planning for later today vs. tomorrow
Original Note:
Today's Communication / Plan
-
-pod #4
-in and out of a-fib on 02/21 with up to 3 sec pauses, asymptomatic. Amio drip stopped d/t bradycardia. Put po Amio and BB on hold
-remained in nsr overnight.
-increased oxygen demand last evening, received Lasix 40mg (unmeasured voids)
-diuresed well, weight is down from yesterday
-wean oxygen as tolerated
-Cr is 1.8 (2.0 past 3 days, baseline 1.8-1.9)
-current meds (ASA, Plavix, Norvasc for radial graft and htn, Zetia, Colchicine, Protonix). Coreg and Amio are held, d/w Cards
-encourage IS, OOB
-d/c planning once off oxygen
Assessment / Plan
-
- Multivessel Coronary Artery Disease with possible ACS event/NSTEMI- s/p CABG x4 In situ MC to LAD, Ao to left radial to ramus, Ao to RSVG to right acute marginal, Ao to RSVG to RPDA); RLE EVH; LAAE [45 mm clip] by Dr. Mcfarlane on 02/19/25, pod #4
- Intraop NIESHA: LVEF preop was approximately 40%, there were regional wall motion abnormalities on NIESHA preoperatively particular towards the anterior septum and inferior todd. Following surgery his EF did improve significantly to normal at 50% and
most of the regional wall motion abnormalities did improve. After chest closure, there was a period in which he became slightly hypotensive, suspected some entrainment of air into his grafts as there was some global LV dysfunction. Driving up of
the blood pressure with dobutamine as well as vasodilation with nitro as he has baseline very hypertensive yielded significant improvement back to normal EF of 45-50%.
- Hypertension
- Hyperlipidemia
- Recent hypertensive emergency
- Multivessel coronary artery disease
- Possible NSTEMI on admission last time
- History of splenectomy and exploratory laparotomy
- CKD, Cr 1.8-2.1 preop
- Former smoker
- Acute postop blood loss anemia
- Acute postop atelectasis
- Acute postop hypovolemia with subsequent hypervolemia
- Suspected acute postop pericarditis/ +rub
- Acute postop paroxysmal a-fib on 02/21 with upto 3 sec conversion pauses
Subjective
Procedure
s/p CABG x4 In situ MC to LAD, Ao to left radial to ramus, Ao to RSVG to right acute marginal, Ao to RSVG to RPDA); RLE EVH; LAAE [45 mm clip] by Dr. Mcfarlane on 02/19/25
-
Date of Service: February 23, 2025
Objective Data
-
Lab Results
02/23/25 03:21
02/23/25 03:21
PT 15.8 Sec (11.4-14.6) H 02/19/25 12:38
INR 1.21 02/19/25 12:38
APTT 30.6 Sec (23.4-35.0) 02/19/25 12:38
Vital Signs
Vital Signs
Temp Pulse Resp BP Pulse Ox
98.6 F 72 22 138/94 98
02/23/25 03:44 02/23/25 05:00 02/23/25 03:44 02/23/25 03:44 02/23/25 03:44
CT Intake/Output/Weight
02/22/25 02/22/25 02/23/25
06:59 18:59 06:59
Intake Total 620 / 1900 1010 / 1010
Output Total 500 / 720 2260 / 2260
Balance 120 / 1180 1010 / -1250 -2260 / -1250
SaO2: 98
Physical Exam
-
General: AOx3
Cardiovascular: Regular rate & rhythm
Respiratory: Decreased Breath Sounds
Sternum: Stable
Incision: Clean, Dry and Intact
Extremities: Edema +1
--- NOTE | 2025-02-23 08:00 | PTCARENOTE ---
Assumed care of patient at 0645. Assessment completed and documented in shift assessment.
Patient is AAOx4, flat/withdrawn. Denies pain. Reinforced sternal precautions and the importance of maintaining them as patient attempted to mobilize out of chair inappropriately. Reinforced importance of using call akbar if he needs assistance/to
mobilize. RA, lungs diminished SpO2 92%. Encouraged IS. SR with bigeminy ectopy this AM, briefly sustained before returning to SB. No edema, + pulses. R IJ cordis patent, dressing changed. R FA IV patent. Round abdomen, + BS and + flatus. Good
appetite, ate breakfast. Voiding in BR, used urinal so we can obtain accurate I&O's. OOB to bathroom to brush teeth and void. Sternal, L FA, R LE, R Groin PETRA/all approximated, pink and WNL. Prior chest tube sites dressing CDI.
[2025-02-23] MEDS: ZETIA 10 MG PO (08:20)
[2025-02-23] MEDS: MAGNESIUM OXIDE 500 MG PO (08:20)
[2025-02-23] MEDS: NEURONTIN 100 MG PO ×2 (08:20→16:15)
[2025-02-23] MEDS: PROTONIX 40 MG PO (08:21)
[2025-02-23] MEDS: PLAVIX 75 MG PO (08:21)
[2025-02-23] MEDS: SENOKOT-S 1 TABLET PO (08:21)
[2025-02-23] MEDS: COLCHICINE 0.3 MG PO (08:21)
[2025-02-23] MEDS: LOW STRENGTH ASPIRIN 81 MG PO (08:21)
[2025-02-23] MEDS: NORVASC 5 MG PO (08:21)
[2025-02-23] MEDS: BACTROBAN 2% OINTMENT 1 APPLIC NASAL (08:22)
[2025-02-23] MEDS: LASIX 40 MG IV (10:09)
[2025-02-23] MEDS: KCL 20 MEQ PO (10:10)
[2025-02-23] MEDS: NSS IV (10:11)
--- NOTE | 2025-02-23 15:15 | W.[place]-PDMP ---
[place]-PDMP
-
Checked the [place]- Prescription Drug Monitoring Program website, no red flags identified; safe to proceed with prescription.
--- NOTE | 2025-02-23 15:58 | W.DCSUMMARY ---
Discharge Summary
Discharge Data
Date of Admission: 02/19/25
Date of Discharge: 02/23/25
Total time spent discharging patient (in min): 40
-
Pending Results: No
Hospital Course
Primary care physician:
Dr. Kandace Gardner
Outpatient production assembly operator:
Dr. nÁgel Palma MD
Inpatient consultants:
[facility] [place] [facility]
Procedures:
1. Multi arterial coronary artery bypass grafting x 4 with MC�LAD, left radial artery to ramus intermedius, saphenous vein graft to right acute marginal, and saphenous vein graft to RPDA.
2. Left atrial appendage exclusion with number [address] Clemente Mcfarlane MD on 02/19/2025.
Primary Diagnosis:
1. Hypertension
2. Hyperlipidemia
3. Hypertensive emergency
4. Multivessel coronary artery disease
5. Non-ST elevated myocardial infarction upon representation
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
7. Postoperative pericarditis
8. Postoperative acute blood loss anemia
9. Chronic kidney disease, baseline creatinine 1.9
10. 1 episode of postoperative atrial fibrillation with conversion to sinus bradycardia after Amio bolus and drip.
11. Postoperative conversion pauses on amiodarone.
Secondary Diagnoses:
1. Hypertension
2. Hyperlipidemia
3. Hypertensive emergency
4. Multivessel coronary artery disease
5. Non-ST elevated myocardial infarction upon representation
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
7. Postoperative pericarditis
8. Postoperative acute blood loss anemia
9. Chronic kidney disease, baseline creatinine 1.9
10. 1 episode of postoperative atrial fibrillation with conversion to sinus bradycardia after Amio bolus and drip.
11. Postoperative conversion pauses on amiodarone.
HPI:
Patient is a 54-year-old male who presented to the hospital with chest pain and was found to have hypertensive emergency with blood pressures greater than 200. He had a very mild troponin leak and underwent a left heart catheterization which
demonstrated multivessel coronary artery disease with a chronic total occlusion of the proximal right coronary artery. Given his young age, he was offered surgical revascularization as well as management of the left atrial appendage with clip.
Patient agreed, and he was taken to the operating room on the date described above for the procedure described above.
Hospital course:
Patient tolerated procedure well. He remained intubated. He was transported from the operating room to the cardiovascular intensive care unit where he underwent his postoperative recovery. He was successfully extubated at 1400 on postoperative
day 0. Patient came out on dobutamine for hemodynamic support. This was later weaned to 1. Patient's postoperative creatinine was 1.8.
On postoperative day 1 dobutamine and Cardene were weaned off Norvasc was started for left radial artery harvest. Lopressor 12.5 mg was also started that morning however changed to Coreg for better hypertensive control. Patient was found to have
pericarditis and was started on colchicine. On postoperative day 2 the patient's pacing wires and mediastinal chest tubes were removed without issues. Patient developed atrial fibrillation and was given an amnio bolus and drip. He converted to
sinus bradycardia and was in A-fib for 2 hours. On postoperative day #3 patient's Norvasc was titrated up to 5 mg daily. Patient was found to have conversion pauses on amiodarone. Therefore patient's Amio and beta-alexus were held. He remained
in sinus rhythm. His creatinine was stable at 2.0. He was diuresed with Lasix 40 mg IV x 1. On postoperative day #4 he continued diuresis with Lasix 40 mg IV x 1. His weight was back to his preoperative baseline. Creatinine was 1.8. Two-view
chest x-ray revealed no surgical concerns. Patient's case was discussed with attending physician and he was medically cleared to be discharged to home.
Patient was not discharged home on amiodarone or beta-alexus due to conversion pauses. We will check his BMP on Monday02/28/25 to make sure his kidney function is okay.
Home medication changes:
See below
Discharge Plan
-
Patient Disposition: Home (Routine Discharge)
Discharge Diagnosis/Procedures: CABG x 4/clip
Condition: Good
Diet: Low Fat, Low Cholesterol and Low Sodium
Activity: No strenuous activity
Driving Restrictions: Not until seen by your Dr
Bathing Restrictions: OK to Shower
Blood Work: BMP to be performed on Monday02/28/25 to evaluate kidney function.
Other Services: Cardiac Rehab
Specialty Instructions: Weigh Daily- Call MD for wt gain/loss 3 lbs overnight/5 lbs in 1 week
Referrals:
CT Transitional Care Nurse [Outside] (The Cardiothoracic Transitional Care Nurse will call you to set up a visit in 1-2 days.)
[facility]. Cardiac Rehab [Outside] - 04/02/25 1:00 pm
(Cardiac Rehab Orientation appointment is on April 02 at 1pm.
The Cardiac Rehab gym is located on the first floor of the [facility].)
Geovanna Marshall CRNP [Specified Professional Personl] - 04/03/25 10:00 am (Please note- your appointment on February 25, 2025 was cancelled and changed to this. )
Ángel Antonio MD [Family Provider] -
Ramo Roy MD [Active] - in three to four weeks (Dr. Osorio or nurse practitioner-eventual PFT, screen for yearly low-dose lung cancer screening CT)
Clemente Mcfarlane MD [Active] - 03/24/25 10:30 am
Prescriptions:
New
gabapentin 100 mg Capsule
100 mg PO TID PRN (Reason: Nerve pain) Qty: 15 0RF
Rx Instructions:
Take as needed for nerve pain
amlodipine 5 mg Tablet
5 mg PO DAILY Qty: 30 1RF
clopidogrel 75 mg Tablet
75 mg PO DAILY Qty: 30 1RF
pantoprazole 40 mg Tablet,Delayed Release (Dr/Ec)
40 mg PO DAILY Qty: 30 1RF
Rx Instructions:
GI prophylaxis with Plavix. Obtain refills from PCP/cardiology
oxycodone 5 mg Tablet
5 mg PO .Q6H PRN PRN (Reason: moderate-severe pain) Qty: 28 0RF
Rx Instructions:
Ongoing pain control, attending physician Dr. Clemente Mcfarlane
sennosides-docusate sodium 8.6-50 mg Tablet
1 tab PO Q12 PRN (Reason: Constipation) Qty: 0 0RF
Rx Instructions:
Please purchase [id number], take as needed while using oxycodone.
acetaminophen 325 mg Tablet
650 mg PO Q4HPRN PRN (Reason: mild pain,headache,temp >101F ) Qty: 0 0RF
Rx Instructions:
Please purchase [id number]
colchicine 0.6 mg tablet
0.6 mg PO DAILY Qty: 30 0RF
Rx Instructions:
Take for 30 days and then stop
Continued
ezetimibe 10 mg Tablet
10 mg PO DAILY Qty: 30 2RF
aspirin 81 mg tablet,chewable
81 mg PO DAILY
Held
testosterone cypionate 200 MG/1 ML oil
0.25 ml IM MOWEFR
Hold Instructions: Discussed resuming Follow-up with Dr. Mcfarlane
Patient Comments:
no pdmp record, patient stated he gets this in a [facility] pharmacy and is mailed to him, un known pharmacy
Discontinued
nitroglycerin 0.4 mg tablet, sublingual
0.4 mg sublingual Q5MPRN PRN (Reason: chest pain) Qty: 90 0RF
Rx Instructions:
max x3 doses at time
carvedilol 12.5 mg tablet
12.5 mg PO BID
amlodipine 10 mg tablet
10 mg PO DAILY
Discharge Orders:
Discharge Patient (As Directed); Ordered 02/23/25
Ordered By: Eleonora Campbell
Care Plan Goals
Care Plan Goals:
Problem: Readiness for enhanced knowledge related to diagnosis and treatment plan
Goal: Understand your diagnosis and treatment plan needs, including medications if applicable.
Instructions: Know your diagnosis, underlying causes and treatment plan options, including medications if applicable. Consult with your health care team to learn about your diagnosis and treatment plan, including medications if applicable.
Discharge Date and Time
Print Language: ICELANDIC
--- NOTE | 2025-02-23 16:51 | PTCARENOTE ---
Discharge instructions thoroughly reviewed w/patient and parents, all questions answered. Patient and all belongings transported to waiting vehicle for d/c home.
== END 2025-02-23 17:00 | disposition home or self-care (01) | DRG 235 ==
LOC: CVICU 05:02
PROVIDERS: Anesthesiology; ADMITTING PHYSICIAN Thoracic Surgery (Cardiothoracic Vascular Surgery); CONSULT PHYSICIAN Internal Medicine Cardiovascular Disease; CONSULT PHYSICIAN Internal Medicine Critical Care Medicine; FAMILY PHYSICIAN Family Medicine
PROC: 021109W Bypass Coronary Artery, Two Arteries from Aorta with Autologous Venous Tissue, Open Approach (ICD-10-PCS; 2025-02-19)
PROC: 5A1221Z Performance of Cardiac Output, Continuous (ICD-10-PCS; 2025-02-19)
PROC: 03BC0ZZ Excision of Left Radial Artery, Open Approach (ICD-10-PCS; 2025-02-19)
PROC: 02L70CK Occlusion of Left Atrial Appendage with Extraluminal Device, Open Approach (ICD-10-PCS; 2025-02-19)
PROC: 02100AW Bypass Coronary Artery, One Artery from Aorta with Autologous Arterial Tissue, Open Approach (ICD-10-PCS; 2025-02-19)
PROC: 02100Z9 Bypass Coronary Artery, One Artery from Left Internal Mammary, Open Approach (ICD-10-PCS; 2025-02-19)
PROC: 06BP4ZZ Excision of Right Saphenous Vein, Percutaneous Endoscopic Approach (ICD-10-PCS; 2025-02-19)
PROC: B24BZZ4 Ultrasonography of Heart with Aorta, Transesophageal (ICD-10-PCS; 2025-02-19)
DX: I25.10 Atherosclerotic heart disease of native coronary artery without angina pectoris (principal); I21.4 Non-ST elevation (NSTEMI) myocardial infarction; J96.01 Acute respiratory failure with hypoxia; D62 Acute posthemorrhagic anemia; J98.11 Atelectasis; I30.8 Other forms of acute pericarditis; N17.9 Acute kidney failure, unspecified; I12.9 Hypertensive chronic kidney disease with stage 1 through stage 4 chronic kidney disease, or unspecified chronic kidney disease; N18.9 Chronic kidney disease, unspecified; E78.01 Familial hypercholesterolemia; I95.9 Hypotension, unspecified; E86.1 Hypovolemia; E87.70 Fluid overload, unspecified; I48.0 Paroxysmal atrial fibrillation; R00.1 Bradycardia, unspecified; R73.9 Hyperglycemia, unspecified; K75.81 Nonalcoholic steatohepatitis (NASH); M10.9 Gout, unspecified; D75.839 Thrombocytosis, unspecified; F10.10 Alcohol abuse, uncomplicated; Z87.891 Personal history of nicotine dependence; Z90.81 Acquired absence of spleen
CPT/HCPCS: 36415; 71045; 71046; 80048; 81003; 81015; 82330; 82565; 82805; 82947; 82962; 83735; 84132; 84302; 84520; 85014; 85018; 85027; 85049; 85610; 85730; 86850; 86900; 86901; 86920; 93005; 93312; 93320; 93325; 94002; 94010; 94640; J2916

== ENCOUNTER 2025-04-15 08:46 | Outpatient (RCR) | payer BC, SELFPAY | END 2025-04-15 23:59 | disposition home or self-care (01) | LOC: CRHB 08:46 | PROVIDERS: ATTENDING PHYSICIAN Student in an Organized Health Care Education/Training Program; FAMILY PHYSICIAN Family Medicine | DX: I25.10 Atherosclerotic heart disease of native coronary artery without angina pectoris (principal); Z95.1 Presence of aortocoronary bypass graft | CPT/HCPCS: 93797; 93798 ==

== ENCOUNTER 2025-05-20 08:43 | Outpatient (RCR) | payer BC, SELFPAY | END 2025-05-20 23:59 | disposition home or self-care (01) | LOC: CRHB 08:43 | PROVIDERS: ATTENDING PHYSICIAN Student in an Organized Health Care Education/Training Program; FAMILY PHYSICIAN Family Medicine | DX: I25.10 Atherosclerotic heart disease of native coronary artery without angina pectoris (principal); Z95.1 Presence of aortocoronary bypass graft | CPT/HCPCS: 93797; 93798 ==